=== PATIENT | female | born 1995 | race Caucasian/White ===

== ENCOUNTER 2019-07-24 12:21 | Emergency (ER) | payer SELFPAY ==
--- OUTSIDE RECORDS SUMMARY | 2019-07-24 12:23 | XMS REPORT ---
:1995 [facility] Address [address] [place] [address] Dr. Monte [address] [place] [id number] Care Team Providers Name Role Phone Unavailable Unavailable Unavailable Problems This patient has no known problems. Allergies, Adverse Reactions, Alerts This patient has no known allergies or adverse reactions. Medications This patient has no known medications.
[2019-07-24] MEDS ORDERED: KETOROLAC 30 MG/ML INJ ONE (12:41)
[2019-07-24] MEDS ORDERED: TETANUS & DIPHTHERIA TOX,ADULT 0.5 ML VIAL ONE (12:42)
--- NOTE | 2019-07-24 13:59 | RAD REPORT ---
EXAM DESCRIPTION: RAD - Scapula Left - 07/24/2019 1:11 pm CLINICAL HISTORY: Left shoulder pain status post injury FINDINGS: No fracture or dislocation is seen.
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
[2019-07-24 14:23] VITALS: BP 132/77; TEMP 97.4; O2SAT 100
== END 2019-07-24 14:16 | disposition home or self-care (01) ==
LOC: ER 12:21
DX: M25.512 Pain in left shoulder (principal); S80.819A Abrasion, unspecified lower leg, initial encounter; S80.10XA Contusion of unspecified lower leg, initial encounter; V43.52XA Car driver injured in collision with other type car in traffic accident, initial encounter; Y93.89 Activity, other specified; Y92.410 Unspecified street and highway as the place of occurrence of the external cause
CPT/HCPCS: 73010; 90471; 90714; 96372; 99283

== ENCOUNTER 2022-03-31 01:14 | Emergency (ER) | payer SELFPAY ==
--- OUTSIDE RECORDS SUMMARY | 2022-03-31 01:17 | XMS REPORT | Continuity of Care Document ---
:1995 Author Organization [facility] t Address [address] [place] [address] Care Team Providers Name Role Phone PCP, DOES NOT HAVE A Primary Care Physician Unavailable Kirk FORTUNE Attending Clinician Unavailable Kevyn COSBY Attending Clinician Tung Fortune DO Attending Clinician Doctor Unassigned, Name Attending Clinician Unavailable Raju_P Attending Clinician Unavailable Farrukhu_P Admitting Clinician Unavailable Payers Payer Name Policy Type Policy Number Effective Date Expiration Date [facility] [place] [id number] 2017 00:00:00 Advance Directives Directive Decision Effective Termination Comments Source Date Date Healthcare Agents on N/A NPI: 1831 FileNameRelationshipHealthcare [id number] Agent RelationshipCommunicationAdrian ServinSpouseHealth Care [phone] (Home)[facility]iana FinkOk[facility] [phone] (Mobile) Problems Condition Condition Condition Status Onset Resolution Last Treating Co mments Source Name Details Category Date Date Treatment Clinician Date Contracept Contracept Disease Active N PI:183 ama ama 8-29 [id number] management management 00:00: 00 Obesity Obesity Disease Active NPI:183 (BMI (BMI 8-29 7330125 30-39.9) 30-39.9) 00:00: 00 Rubella Rubella Disease Active 2016-11 NPI:183 non-immune non-immune 12-08 59958 status, status, 00:00: antepartum antepartum 00 H/O: H/O: Disease Active 2016-11 Overview: NPI:18 3 hypothyroi hypothyroi 1-14 She 13 18270 dism dism 00:00: reports 00 dx of hypothyro idism around 2012. States she has trouble recalling accurate informati on. She took hypothyro id medicatio ns for almost 1 year; self d/c'd. Reports asx since then. TSH levels noted in EPIC in 2012 were both normal (3.71 and 3.74). Allergies, Adverse Reactions, Alerts Allergy Allergy Status Severity Reaction(s) Onset Inactive Treating Comm ents Source Name Type Date Date Clinician NO KNOWN Drug Active NPI:183 ALLERGIE Class [id number] S Social History Social Habit Start Date Stop Date Quantity Comments Source Exposure to Not sure NPI:[id number] 1 SARS-CoV-2 (event) Sex Assigned At NPI:[id number] Tobacco use and 2020-05-14 2020-05-14 Never used NPI:[id number] 16299 exposure 00:00:00 00:00:00 Alcohol intake 2020-05-14 2020-05-14 Current NPI:[id number] 00:00:00 00:00:00 non-drinker of alcohol (finding) Smoking Status Start Date Stop Date Source Never smoker Medications Ordered Filled Start Stop Current Ordering Indication Dosage Frequency Signature Comments Components Source Medication Medication Date Date Medication? Clinician (SIG) Name Name naproxen 2019-11 2020- No [id number] 500mg Take 1 NPI:183 500 mg 30 11-03 608613 [place] [id number] tablet 00:00: 05:59 mouth 2 00 :00 (two) times daily with meals for 10 days. simethicone 2017- Yes 160mg Take 2 NPI :183 80 mg 7-15 tablets by [id number] chewable 00:00: mouth tablet 00 after meals and at bedtime as needed for Gas. docusate Yes 240mg Take 1 NPI:18 3 calcium 240 7-15 capsule by 13 08908 mg capsule 00:00: mouth once 00 daily as needed for Constipati on. HYDROcodone 2017- Yes 1{tbl} Take 1 LOGISTICS ASSOCIATE I:183 -acetaminop 7-15 tablet by 131 8781 hen 5-325 00:00: mouth mg tablet 00 every 6 (six) hours as needed for Pain (scale 4-6) (If uncontroll ed by Ibuprofen) . ibuprofen 2018-0 Yes 600mg Take 1 NPI:1 83 600 mg 7-15 tablet by [id number] tablet 00:00: mouth 00 every 6 (six) hours as needed for Pain (scale 1-3) or Pain (scale 4-6). 2018-0 Yes 1{tbl} Take 1 NPI:1 83 vitamin 7-15 tablet by [id number] w/FA tablet 00:00: mouth 00 daily. docusate 2018-0 Yes 240mg Take 1 NPI:18 3 calcium 240 7-15 capsule by 13 28138 mg capsule 00:00: mouth once 00 daily as needed for Constipati on. ferrous 2018-0 Yes 325mg Take 1 NPI:183 sulfate 325 7-15 tablet by 131 8781 mg (65 mg 00:00: mouth 2 iron) 00 (two) tablet times daily. ibuprofen 2018-0 Yes 600mg Take 1 NPI:1 83 600 mg 7-15 tablet by [id number] tablet 00:00: mouth 00 every 6 (six) hours as needed for Pain (scale 1-3) or Pain (scale 4-6) (Pain). Take with food or milk. simethicone 2018-0 Yes 160mg Take 2 NPI :183 80 mg 7-15 tablets by [id number] chewable 00:00: mouth tablet 00 after meals and at bedtime as needed for Gas. docusate 2018-0 Yes 240mg Take 1 NPI:18 3 calcium 240 7-15 capsule by 13 31144 mg capsule 00:00: mouth once 00 daily as needed for Constipati on. HYDROcodone 2018-0 Yes 1{tbl} Take 1 [employer] ASSOCIATE I:183 -acetaminop 7-15 tablet by 131 8781 hen 5-325 00:00: mouth mg tablet 00 every 6 (six) hours as needed for Pain (scale 4-6) (If uncontroll ed by Ibuprofen) . ibuprofen 2018-0 Yes 600mg Take 1 NPI:1 83 600 mg 7-15 tablet by [id number] tablet 00:00: mouth 00 every 6 (six) hours as needed for Pain (scale 1-3) or Pain (scale 4-6). 2018-0 Yes 1{tbl} Take 1 NPI:1 83 vitamin 7-15 tablet by [id number] w/FA tablet 00:00: mouth 00 daily. docusate 2018-0 Yes 240mg Take 1 NPI:18 3 calcium 240 7-15 capsule by 13 73878 mg capsule 00:00: mouth once 00 daily as needed for Constipati on. ferrous 2018-0 Yes 325mg Take 1 NPI:183 sulfate 325 7-15 tablet by 131 8781 mg (65 mg 00:00: mouth 2 iron) 00 (two) tablet times daily. ibuprofen 2018-0 Yes 600mg Take 1 NPI:1 83 600 mg 7-15 tablet by [id number] tablet 00:00: mouth 00 every 6 (six) hours as needed for Pain (scale 1-3) or Pain (scale 4-6) (Pain). Take with food or milk. simethicone 2018-0 Yes 160mg Take 2 NPI :183 80 mg 7-15 tablets by [id number] chewable 00:00: mouth tablet 00 after meals and at bedtime as needed for Gas. docusate 2018-0 Yes 240mg Take 1 NPI:18 3 calcium 240 7-15 capsule by 13 85131 mg capsule 00:00: mouth once 00 daily as needed for Constipati on. HYDROcodone 2018-0 Yes 1{tbl} Take 1 LOGISTICS ASSOCIATE I:183 -acetaminop 7-15 tablet by 131 8781 hen 5-325 00:00: mouth mg tablet 00 every 6 (six) hours as needed for Pain (scale 4-6) (If uncontroll ed by Ibuprofen) . ibuprofen 2018-0 Yes 600mg Take 1 NPI:1 83 600 mg 7-15 tablet by [id number] tablet 00:00: mouth 00 every 6 (six) hours as needed for Pain (scale 1-3) or Pain (scale 4-6). 2018-0 Yes 1{tbl} Take 1 NPI:1 83 vitamin 7-15 tablet by [id number] w/FA tablet 00:00: mouth 00 daily. docusate 2018-0 Yes 240mg Take 1 NPI:18 3 calcium 240 7-15 capsule by 13 35452 mg capsule 00:00: mouth once 00 daily as needed for Constipati on. ferrous 2018-0 Yes 325mg Take 1 NPI:183 sulfate 325 7-15 tablet by 131 8781 mg (65 mg 00:00: mouth 2 iron) 00 (two) tablet times daily. ibuprofen 2018-0 Yes 600mg Take 1 NPI:1 83 600 mg 7-15 tablet by [id number] tablet 00:00: mouth 00 every 6 (six) hours as needed for Pain (scale 1-3) or Pain (scale 4-6) (Pain). Take with food or milk. Immunizations Ordered Immunization Filled Immunization Date Status Commen ts Source Name Name MMR 2018-06-07 Completed NPI:[id number] 00:00:00 1 MMR 2018-06-07 Completed NPI:[id number] 00:00:00 1 MMR 2018-06-07 Completed NPI:[id number] 00:00:00 1 HPV9 2018-06-06 Completed NPI:[id number] 00:00:00 1 HPV9 2018-06-06 Completed NPI:[id number] 00:00:00 1 HPV9 2018-06-06 Completed NPI:[id number] 00:00:00 1 TDAP 2018-03-26 Completed NPI:[id number] 00:00:00 1 TDAP 2018-03-26 Completed NPI:[id number] 00:00:00 1 TDAP 2018-03-26 Completed NPI:[id number] 00:00:00 1 TDAP 2013-09-13 Completed NPI:[id number] 00:00:00 1 TDAP 2013-09-13 Completed NPI:[id number] 00:00:00 1 TDAP 2013-09-13 Completed NPI:[id number] 00:00:00 1 Influenza Virus 2013-08-23 Completed NPI:[id number] Vaccine (3+ yrs) 00:00:00 1 Influenza Virus 2013-08-23 Completed NPI:[id number] 1878 Vaccine (3+ yrs) 00:00:00 1 Influenza Virus 2013-08-23 Completed NPI:[id number] 1878 Vaccine (3+ yrs) 00:00:00 1 DTAP 2007-02-16 Completed NPI:[id number] 00:00:00 1 HPV 2007-02-16 Completed NPI:[id number] 00:00:00 1 Meningococcal Vaccine 2007-02-16 Completed NPI :[id number] 00:00:00 1 DTAP 2007-02-16 Completed NPI:[id number] 00:00:00 1 HPV 2007-02-16 Completed NPI:[id number] 00:00:00 1 Meningococcal Vaccine 2007-02-16 Completed NPI :[id number] 00:00:00 1 DTAP 2007-02-16 Completed NPI:[id number] 00:00:00 1 HPV 2007-02-16 Completed NPI:[id number] 00:00:00 1 Meningococcal Vaccine 2007-02-16 Completed NPI :[id number] 00:00:00 1 HEPATITIS A 2006-09-01 Completed NPI:[id number] 00:00:00 1 HEPATITIS A 2006-09-01 Completed NPI:[id number] 00:00:00 1 HEPATITIS A 2006-09-01 Completed NPI:[id number] 00:00:00 1 HEPATITIS A 2006-02-28 Completed NPI:[id number] 00:00:00 1 HEPATITIS A 2006-02-28 Completed NPI:[id number] 00:00:00 1 HEPATITIS A 2006-02-28 Completed NPI:[id number] 00:00:00 1 Vital Signs Vital Name Observation Time Observation Value Comments Source Systolic blood pressure 2020-10-23 14:19:00 121 mm[Hg] Diastolic blood 2020-10-23 14:19:00 75 mm[Hg] NPI:1 [id number] pressure Heart rate 2020-10-23 14:19:00 77 /min NPI:1831 [id number] Body temperature 2020-10-23 14:19:00 37.17 Rowan Respiratory rate 2020-10-23 14:19:00 16 /min Body height 2020-10-23 14:19:00 154.9 cm NPI:1831 [id number] Body weight 2020-10-23 14:19:00 87.998 kg NPI:1831 [id number] BMI 2020-10-23 14:19:00 36.66 kg/m2 NPI:1831 [id number] Oxygen saturation in 2020-10-23 14:19:00 97 /min Arterial blood by Pulse oximetry Body temperature 2020-05-14 14:31:00 37.06 Rowan Respiratory rate 2020-05-14 14:31:00 18 /min Body weight 2020-05-14 14:31:00 90.719 kg NPI:1831 [id number] BMI 2020-05-14 14:31:00 37.79 kg/m2 NPI:1831 [id number] Oxygen saturation in 2020-05-14 14:31:00 100 /min Arterial blood by Pulse oximetry Systolic blood pressure 2020-05-14 14:31:00 130 mm[Hg] Diastolic blood 2020-05-14 14:31:00 85 mm[Hg] NPI:1 [id number] pressure Heart rate 2020-05-14 14:31:00 92 /min NPI:1831 [id number] Procedures Procedure Date / Time Performed Performing Clinician Raoul e XR WRIST 3+ VW RIGHT 2020-10-23 14:48:47 Natanael Bagley NPI:[id number] NOTICE OF PRIVACY 2020-10-23 14:13:40 Doctor Unassigned, No PRACTICES Name CONSENT/REFUSAL FOR 2020-10-23 14:13:22 Doctor Unassigned, No LOGISTICS ASSOCIATE I:[id number] DIAGNOSIS AND TREATMENT Name NOTICE OF PRIVACY 2020-05-14 14:57:33 Doctor Unassigned, No PRACTICES Name RAPID STREP SCREEN FOR 2020-05-14 14:49:00 Keturah Fortune LOGISTICS ASSOCIATE I:[id number] GROUP A COVID-19 (ID NOW RAPID 2020-05-14 14:49:00 Keturah Fortune LOGISTICS ASSOCIATE I:[id number] TESTING) CONSENT/REFUSAL FOR 2020-05-14 14:22:51 Doctor Unassigned, No LOGISTICS ASSOCIATE I:[id number] DIAGNOSIS AND TREATMENT Name Encounters Start End Encounter Admission Attending Care Care Encounter Source Date/Time Date/Time Type Type Clinicians Facility Department ID 2021-09-[address] [facility] [id number] NPI:183 08:05:11 [id number] 1580-10-[address] [facility] [id number] NPI:183 02:00:45 [id number] [id number] 2021-10-[address] [facility] [id number] NPI:183 14:15:00 14:15:00 DIPESH [id number] 2020-10-23 2020-10-23 Emergency [facility] [id number] NPI:183 08:22:00 09:18:00 Natanael Marie [id number] [place] 4.2.7.2.686 [place] [id number] 2020-05-14 2020-05-14 Emergency [facility] [id number] NPI:183 09:33:00 11:03:00 Keturah Marie [id number] [place] 4.2.7.2.686 [place] [id number] 2020-05-14 2020-05-14 Orders Doctor PAYAM [id number] NPI:183 00:00:00 00:00:00 Only Unassigned, JUAN [id number] [place] [facility] [id number] 2020-03-22 2020-03-22 Outpatient Raju_P [facility] [id number] [place] 10:50:00 10:50:00 0429 [facility] Results Test Description Test Time Test Comments Results Result Comments Source RAPID STREP SCREEN FOR GROUP A 2020-05-14 15:41:00 Test Item Value Reference Range Interpretation Comme nts Streptococcus pyogenes (group A) antigen (test code = 30714- 2) Negative Negative Lab Interpretation (test code = 69673-1) Normal NPI:[id number] (ID NOW RAPID TESTING)2020-05-14 15:38:00 Test Item Value Reference Range Interpretation Comments SARS-CoV-2 Rapid ID NOW Not Detected Not Detected (test code = 49455-4) PHYLICIA (test code = PHYLICIA) ID NOW COVID-19 Assay is an isothermal nucleic acid amplification test intended for the qualitative detection of nucleic acid from SARS-CoV-2 viral RNA in nasopharyngeal (LOGISTICS ASSOCIATE) specimens. It is used under Emergency Use Authorization (EUA) by FDA. The limit of detection (LOD) of the assay is 125 Genome Equivalents/mL. A positive result is indicative of the presence of SARS-CoV-2 RNA. ?Clinical correlation with patient history and other diagnostic information is necessary to determine patient infection status. A negative (Not Detected) result does not preclude SARS-CoV-2 infection. In patients with clinical symptoms and other tests that are consistent with SARS-CoV-2 infection, negative results should be treated as presumptive negative and a new specimen should be tested with alternative PCR molecular test. Invalid: Please collect a new specimen for repeat patient testing if clinically indicated. Lab Interpretation Normal (test code = 20922-4)
[2022-03-31 02:31] LABS: SARS-COV-2 RT PCR NEGATIVE (NEGATIVE)
--- NOTE | 2022-03-31 02:46 | ER ---
Nurse's Notes [facility] Name: Marta Meza Age: 27 yrs Sex: Female : 1995 Arrival Date: 03/31/2022 Time: 01:18 Bed 12 Private MD: Diagnosis: Acute pharyngitis, unspecified Presentation: 03/31 01:32 Chief complaint: Patient states: she has a sore throat, ear pain and pain with bb swallowing which started yesterday. Coronavirus screen: At this time, the client does not indicate any symptoms associated with coronavirus-19. Coronavirus screen: Client presents with at least one sign or symptom that may indicate coronavirus-19. Standard/surgical mask placed on the client. Ebola Screen: No symptoms or risks identified at this time. Initial Sepsis Screen: Does the patient meet any 2 criteria? No. Patient's initial sepsis screen is negative. Does the patient have a suspected source of infection? No. Patient's initial sepsis screen is negative. Risk Assessment: Do you want to hurt yourself or someone else? Patient reports no desire to harm self or others. Onset of symptoms was March 30, 2022. 01:32 Method Of Arrival: Ambulatory bb 01:32 Acuity: BEE 4 bb Triage Assessment: 02:59 General: Behavior is calm. 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 - Social history:: Smoking status: Patient denies any tobacco usage or history of. Screenin:38 Abuse screen: Denies threats or abuse. Nutritional screening: No deficits noted. bb Tuberculosis screening: No symptoms or risk factors identified. Fall Risk None identified. Assessment: 01:38 General: Appears in no apparent distress. uncomfortable. Pain: Complains of pain in bb throat Pain currently is 5 out of 10 on a pain scale. Neuro: Level of Consciousness is awake, alert, obeys commands, Oriented to person, place, time, situation. Cardiovascular: Capillary refill < 3 seconds Patient's skin is warm and dry. Respiratory: Airway is patent Respiratory effort is even, unlabored, Breath sounds are clear bilaterally. GI: No signs and/or symptoms were reported involving the gastrointestinal system. EENT: Throat has enlarged tonsils Reports pain when swallowing. Derm: Skin is pink, warm \T\ dry. 02:58 Reassessment: Patient is alert, oriented x 3, equal unlabored respirations, skin bb warm/dry/pink. pt verbalized understanding of and agrees to plan of care discharge instructions given pt ambulated with steady gait to exit. Vital Signs: 01:32 BP 118 / 73; Pulse 80; Resp 16 S; Temp 97.4(TE); Pulse Ox 100% on R/A; Weight 86.18 kg bb (R); Height 5 ft. 1 in. (154.94 cm) (R); Pain 5/10; 01:32 Body Mass Index 35.90 (86.18 kg, 154.94 cm) bb ED Course: 01:18 Patient arrived in ED. kz 01:36 Triage completed. bb 01:36 Arm band placed on Patient placed in an exam room. Labs ordered per protocol. bb 01:38 Patient has correct armband on for positive identification. Call light in reach. bb 01:49 Norbert Eason MD is Attending Physician. [facility] 02:37 Karime Miller RN is Primary Nurse. bb 02:59 No provider procedures requiring assistance completed. Patient did not have IV access bb during this emergency room visit. Administered Medications: No medications were administered Outcome: 02:45 Discharge ordered by . [facility] 02:59 Discharged to home ambulatory. bb 02:59 Condition: stable 02:59 Discharge instructions given to patient, Instructed on discharge instructions, follow up and referral plans. medication usage, Demonstrated understanding of instructions, follow-up care, medications, Prescriptions given X 1. 02:59 Patient left the ED. bb Signatures: Karime Miller RN RN Norbert Pemberton MD MD [facility] Lien Iyer
--- NOTE | 2022-03-31 02:46 | EDPHYS ---
Physician Documentation [facility] Name: Marta Meza Age: 27 yrs Sex: Female : 1995 Arrival Date: 03/31/2022 Time: 01:18 Bed 12 Private MD: ED Physician Norbert Eason HPI: 03/31 01:50 This 27 yrs old Female presents to ER via Ambulatory with complaints of Sore Throat. mh7 01:50 The patient presents with sore throat. The patient describes throat pain as constant. mh7 Onset: The symptoms/episode began/occurred yesterday. Severity of symptoms: At their worst the symptoms were moderate, yesterday, in the emergency department the symptoms have improved, moderately. Modifying factors: The symptoms are alleviated by nothing, the symptoms are aggravated by swallowing, Patient's oral intake status: good Denies contact with similarly ill indivduals. Associated signs and symptoms: Pertinent positives: earache, Pertinent negatives chest pain, chills, cough, diarrhea, dysphagia, fever, flu-like symptoms, headache, nausea, rhinorrhea, shortness of breath, vomiting. 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 - Social history:: Smoking status: Patient denies any tobacco usage or history of. ROS: 01:50 Constitutional: Negative for fever, chills, and weight loss, Eyes: Negative for injury, mh7 pain, redness, and discharge, Neck: Negative for injury, pain, and swelling, Cardiovascular: Negative for chest pain, palpitations, and edema, Respiratory: Negative for shortness of breath, cough, wheezing, and pleuritic chest pain, Abdomen/GI: Negative for abdominal pain, nausea, vomiting, diarrhea, and constipation, Back: Negative for injury and pain, : Negative for injury, bleeding, discharge, and swelling, MS/Extremity: Negative for injury and deformity, Skin: Negative for injury, rash, and discoloration, Neuro: Negative for headache, weakness, numbness, tingling, and seizure, Psych: Negative for depression, anxiety, suicide ideation, homicidal ideation, and hallucinations, Allergy/Immunology: Negative for hives, rash, and allergies, Endocrine: Negative for neck swelling, polydipsia, polyuria, polyphagia, and marked weight changes, Hematologic/Lymphatic: Negative for swollen nodes, abnormal bleeding, and unusual bruising. Exam: 01:50 Constitutional: This is a well developed, well nourished patient who is awake, alert, mh7 and in no acute distress. Head/Face: Normocephalic, atraumatic. Eyes: Pupils equal round and reactive to light, extra-ocular motions intact. Lids and lashes normal. Conjunctiva and sclera are non-icteric and not injected. Cornea within normal limits. Periorbital areas with no swelling, redness, or edema. Neck: Trachea midline, no thyromegaly or masses palpated, and no cervical lymphadenopathy. Supple, full range of motion without nuchal rigidity, or vertebral point tenderness. No Meningismus. Chest/axilla: Normal chest wall appearance and motion. Nontender with no deformity. No lesions are appreciated. Cardiovascular: Regular rate and rhythm with a normal S1 and S2. No gallops, murmurs, or rubs. Normal PMI, no JVD. No pulse deficits. Respiratory: Lungs have equal breath sounds bilaterally, clear to auscultation and percussion. No rales, rhonchi or wheezes noted. No increased work of breathing, no retractions or nasal flaring. Abdomen/GI: Soft, non-tender, with normal bowel sounds. No distension or tympany. No guarding or rebound. No evidence of tenderness throughout. Back: No spinal tenderness. No costovertebral tenderness. Full range of motion. Skin: Warm, dry with normal turgor. Normal color with no rashes, no lesions, and no evidence of cellulitis. MS/ Extremity: Pulses equal, no cyanosis. Neurovascular intact. Full, normal range of motion. Neuro: Awake and alert, GCS 15, oriented to person, place, time, and situation. Cranial nerves II-XII grossly intact. Motor strength 5/5 in all extremities. Sensory grossly intact. Cerebellar exam normal. Normal gait. Psych: Awake, alert, with orientation to person, place and time. Behavior, mood, and affect are within normal limits. 01:50 ENT: External ear(s): are unremarkable, Ear canal(s): are normal, clear, TM's: are normal, Nose: is normal, Mouth: is normal, Posterior pharynx: Airway: normal, Tonsils: bilaterally enlarged, with erythema, with exudate, Uvula: normal, swelling, that is mild, erythema, that is moderate, exudate, that is moderate, peritonsillar mass, is not appreciated, pooling of secretions, is not appreciated, Dental exam: normal, Voice: is normal. Vital Signs: 01:32 BP 118 / 73; Pulse 80; Resp 16 S; Temp 97.4(TE); Pulse Ox 100% on R/A; Weight 86.18 kg bb (R); Height 5 ft. 1 in. (154.94 cm) (R); Pain 5/10; 01:32 Body Mass Index 35.90 (86.18 kg, 154.94 cm) MDM: 02:43 Differential diagnosis: cocksackie virus, group A strep tonsillitis, influenza, mh7 pharyngitis, tonsillitis, viral syndrome. Data reviewed: vital signs, nurses notes, lab test result(s), Flu: negative COVID negative, Strep negative. Data interpreted: Pulse oximetry: on room air is 100 %. Interpretation: normal. Counseling: I had a detailed discussion with the patient and/or guardian regarding: the historical points, exam findings, and any diagnostic results supporting the discharge/admit diagnosis, lab results, the need for outpatient follow up, to return to the emergency department if symptoms worsen or persist or if there are any questions or concerns that arise at home. Response to treatment: the patient's symptoms have markedly improved after treatment. Refusal of service: The patient/guardian displays adequate decision making capability and despite a detailed discussion of alternatives, benefits, risks, and consequences refuses: Medications. 02:45 Patient medically screened. [facility] 03/31 01:38 Order name: Strep; Complete Time: 02:38 03/31 01:38 Order name: COVID-19/FLU A+B (Document "Date of Onset" if Symptomatic); Complete Time: bb 02:38 03/31 02:13 Order name: Throat Culture EDMS Administered Medications: No medications were administered Disposition Summary: 03/31/22 02:45 Discharge Ordered Location: Home [facility] Problem: new [facility] Symptoms: have improved [facility] Condition: Stable [facility] Diagnosis - Acute pharyngitis, unspecified [facility] Followup: [facility] - With: Private Physician - When: 1 - 2 days - Reason: Worsening of condition, Recheck today's complaints, Continuance of care, Re-evaluation by your physician Discharge Instructions: - Discharge Summary Sheet [facility] - Pharyngitis, [id number] [facility] Forms: - Medication Reconciliation Form [facility] - Thank You Letter [facility] - Antibiotic Education [facility] - Prescription Opioid Use [facility] Prescriptions: - Amoxicillin 875 mg Oral Tablet - take 1 tablet by ORAL route every 12 hours for 10 days; 20 tablet; Refills: 0, 7 Product Selection Permitted Signatures: Dispatcher [employer] Karime Doll RN RN bb Holmes, Maurice, MD MD [facility]
[2022-03-31 05:49] VITALS: BP 118/73; TEMP 97.4; O2SAT 100
== END 2022-03-31 02:59 | disposition home or self-care (01) ==
LOC: ER 01:14
DX: J02.9 Acute pharyngitis, unspecified (principal); Z20.822 Contact with and (suspected) exposure to COVID-19
CPT/HCPCS: 0240U; 87070; 87081; 99283

== ENCOUNTER 2022-05-26 19:23 | Emergency (ER) | payer SELFPAY ==
[2022-05-26] MEDS ORDERED: GUAIFENESIN/CODEINE 5ML UCUP ONE (19:57)
--- NOTE | 2022-05-26 20:04 | RAD REPORT ---
EXAM DESCRIPTION: CT - Head Brain Wo Cont - 05/26/2022 7:57 pm CLINICAL HISTORY: Headache COMPARISON: No comparisonsNo comparisons TECHNIQUE: Axial 5 mm thick images of the head were obtained without IV contrast. All CT scans are performed using dose optimization technique as appropriate and may include automated exposure control or mA/KV adjustment according to patient size. FINDINGS: No intracranial hemorrhage, mass, edema or shift of mid-line structures. No acute infarcti on changes seen. No abnormal extra-axial fluid collections. Ventricles are normal. Mastoid air cells are clear. There significant mucosal thickening throughout the paranasal sinuses wi th air-fluid levels in each maxillary sinus. No sclerotic or expansile bony change. No acute bony findings. IMPRESSION: Sinusitis involving the maxillary, sphenoid and ethmoid air cells. No intracranial abnormality.
--- NOTE | 2022-05-26 20:49 | EDPHYS ---
Physician Documentation [facility] Name: Marta Al Age: 27 yrs Sex: Female : 1995 Arrival Date: 05/26/2022 Time: 19:27 Bed 19 Private MD: ED Physician Berry Castellanos HPI: 05/26 19:46 This 27 yrs old Female presents to ER via Ambulatory with complaints of Headache, pm1 Blurred Vision. 19:46 The patient complains of pain to the Right side of forehead and right eye. The patient pm1 describes the headache as aching. Onset: The symptoms/episode began/occurred 2 to 3 weeks. Associated signs and symptoms: Pertinent positives: Right eye blurry vision, Pertinent negatives: dizziness, fever, nausea, vomiting, weakness. Severity of symptoms: in the emergency department the pain has resolved. Headache History: Denies prior headaches. The symptoms are alleviated by nothing. the symptoms are aggravated by nothing. The patient has not experienced similar symptoms in the past. The patient has not recently seen a physician. 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 Flu vaccine is not up to date. - Social history:: Smoking status: Patient denies any tobacco usage or history of. ROS: 19:46 Constitutional: Negative for fever, chills, and weight loss, Cardiovascular: Negative pm1 for chest pain, palpitations, and edema, Respiratory: Negative for shortness of breath, cough, wheezing, and pleuritic chest pain, MS/Extremity: Negative for injury and deformity, Skin: Negative for injury, rash, and discoloration. 19:46 Neuro: Positive for headache, Negative for numbness, tingling, weakness. 19:46 All other systems are negative. Exam: 19:46 Constitutional: This is a well developed, well nourished patient who is awake, alert, pm1 and in no acute distress. Head/Face: Normocephalic, atraumatic. 19:46 Skin: Warm, dry with normal turgor. Normal color with no rashes, no lesions, and no evidence of cellulitis. MS/ Extremity: Pulses equal, no cyanosis. Neurovascular intact. Full, normal range of motion. 19:46 Head/face: Noted is no obvious of injury or deformity except Sinus tenderness, that is moderate, is located over the right frontal sinus. 19:46 Cardiovascular: Exam negative for acute changes, Rate: normal, Rhythm: regular, Pulses: no pulse deficits are appreciated. 19:46 Respiratory: Exam negative for acute changes, respiratory distress, shortness of breath, Breath sounds: are clear throughout. 19:46 Neuro: Exam negative for acute changes, Orientation: is normal, Mentation: is normal, Cranial nerves: CN II- XII are normal as tested, Cerebellar function: normal finger to nose testing, Motor: moves all fours, Sensation: no obvious gross deficits. Vital Signs: 19:37 BP 123 / 82; Pulse 86; Resp 16; Temp 98.2(O); Pulse Ox 99% on R/A; Weight 86.18 kg; vc1 Height 5 ft. 1 in. (154.94 cm); Pain 4/10; 20:56 BP 133 / 85; Pulse 72; Resp 15; Pulse Ox 100% ; vc1 19:37 Body Mass Index 35.90 (86.18 kg, 154.94 cm) vc1 MDM: 19:33 Patient medically screened. [facility] 20:47 Data reviewed: vital signs. Data interpreted: Pulse oximetry: on room air is 99 %. pm1 Interpretation: normal. Counseling: I had a detailed discussion with the patient and/or guardian regarding: the historical points, exam findings, and any diagnostic results supporting the discharge/admit diagnosis, radiology results, the need for outpatient follow up, to return to the emergency department if symptoms worsen or persist or if there are any questions or concerns that arise at home. 20:47 ED course: Patient with sinus symptoms and headache for the past 2-3 weeks and pm1 sinusitis present on CT, therefore the patient qualifies for antibiotic therapy for her sinusitis. 05/26 19:45 Order name: CT Head Brain wo Cont; Complete Time: 20:24 pm1 Administered Medications: 19:52 Drug: guaiFENesin AC (codeine-guaifenesin) Liquid (10 mg-100 mg/5 mL) 5 ml Route: PO; vc1 20:57 Follow up: Response: No adverse reaction; Marked relief of symptoms; Pain is decreased vc1 Disposition Summary: 05/26/22 20:48 Discharge Ordered Location: Home pm1 Problem: new pm1 Symptoms: have improved pm1 Condition: Stable pm1 Diagnosis - Other acute sinusitis pm1 Followup: pm1 - With: Emergency Department - When: As needed - Reason: Worsening of condition Followup: pm1 - With: Private Physician - When: 2 - 3 days - Reason: Recheck today's complaints, Continuance of care, Re-evaluation by your physician Discharge Instructions: - Discharge Summary Sheet pm1 - Sinusitis, Adult pm1 Forms: - Medication Reconciliation Form pm1 - Work release form pm1 - Thank You Letter pm1 - Antibiotic Education pm1 - Prescription Opioid Use pm1 Prescriptions: - Augmentin 875-125 mg Oral Tablet - take 1 tablet by ORAL route every 12 hours for 10 days; 20 tablet; Refills: 0, pm1 Product Selection Permitted - Diclofenac Sodium 75 mg Oral tablet,delayed release (DR/EC) - take 1 tablet by ORAL route 2 times per day As needed; 30 tablet; Refills: 0, pm1 Product Selection Permitted Signatures: Dispatcher [employer] EDBerry Mas MD MD cha Marinas, Patrick, NP WIGS SALESPERSON pm1 Crystal Melchor, RN RN vc1
--- NOTE | 2022-05-26 20:49 | ER ---
Nurse's Notes [facility] Name: Marta Al Age: 27 yrs Sex: Female : 1995 Arrival Date: 05/26/2022 Time: 19:27 Bed 19 Private MD: Diagnosis: Other acute sinusitis Presentation: 05/26 19:37 Chief complaint: Patient states: "I have had a headache for the past 2-3 weeks, today vc1 it's worse and I am having really bad pain behind my right eye.". Coronavirus screen: Vaccine status: Patient reports being unvaccinated. headache, Client presents with at least one sign or symptom that may indicate coronavirus-19. Standard/surgical mask placed on the client. Provider contacted for isolation considerations. Ebola Screen: No symptoms or risks identified at this time. Initial Sepsis Screen: Does the patient meet any 2 criteria? No. Patient's initial sepsis screen is negative. Does the patient have a suspected source of infection? No. Patient's initial sepsis screen is negative. Risk Assessment: Do you want to hurt yourself or someone else? Patient reports no desire to harm self or others. Onset of symptoms is unknown. 19:37 Method Of Arrival: Ambulatory vc1 19:37 Acuity: BEE 3 vc1 Triage Assessment: 19:39 Headache History: Denies prior headaches. General: Appears in no apparent distress. vc1 uncomfortable, Behavior is calm, cooperative, appropriate for age. Pain: Complains of pain in right eye Pain does not radiate. Pain currently is 4 out of 10 on a pain scale. at worst was 8 out of 10 on a pain scale. Quality of pain is described as pressure, throbbing, Pain began suddenly, Also complains of photophobia, inability to work. EENT: Reports blurred vision in right eye photophobia. Neuro: Level of Consciousness is awake, alert, obeys commands, Oriented to person, place, time, situation, Appropriate for age. Cardiovascular: Capillary refill < 3 seconds Patient's skin is warm and dry. Respiratory: Airway is patent Respiratory effort is even, unlabored, Respiratory pattern is regular, symmetrical. GI: No deficits noted. : No deficits noted. Derm: No deficits noted. Musculoskeletal: No signs and/or symptoms reported regarding the musculoskeletal system. 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 Flu vaccine is not up to date. - Social history:: Smoking status: Patient denies any tobacco usage or history of. Screenin:42 Abuse screen: Denies threats or abuse. Nutritional screening: No deficits noted. vc1 Tuberculosis screening: No symptoms or risk factors identified. Fall Risk None identified. Assessment: 20:00 Reassessment: "See triage assessment". vc1 20:56 Reassessment: Patient and/or family updated on plan of care and expected duration. Pain vc1 level reassessed. Patient is alert, oriented x 3, equal unlabored respirations, skin warm/dry/pink. Patient states symptoms have improved. Pain: Complains of pain in right eye Pain does not radiate. Vital Signs: 19:37 BP 123 / 82; Pulse 86; Resp 16; Temp 98.2(O); Pulse Ox 99% on R/A; Weight 86.18 kg; vc1 Height 5 ft. 1 in. (154.94 cm); Pain 4/10; 20:56 BP 133 / 85; Pulse 72; Resp 15; Pulse Ox 100% ; vc1 19:37 Body Mass Index 35.90 (86.18 kg, 154.94 cm) vc1 ED Course: 19:27 Patient arrived in ED. ja2 19:29 Ady Rahman NP is PHCP. pm1 19:29 Berry Castellanos MD is Attending Physician. pm1 19:39 Triage completed. vc1 19:42 Arm band placed on right wrist. vc1 19:42 Bed in low position. Call light in reach. Pulse ox on. NIBP on. vc1 19:51 Crystal Melchor, SEAN is Primary Nurse. vc1 19:59 CT Head Brain wo Cont In Process Unspecified. EDMS 21:12 No provider procedures requiring assistance completed. Patient did not have IV access vc1 during this emergency room visit. Administered Medications: 19:52 Drug: guaiFENesin AC (codeine-guaifenesin) Liquid (10 mg-100 mg/5 mL) 5 ml Route: PO; vc1 20:57 Follow up: Response: No adverse reaction; Marked relief of symptoms; Pain is decreased vc1 Medication: 21:12 VIS not applicable for this client. vc1 Outcome: 20:48 Discharge ordered by MD. pm1 21:12 Discharged to home ambulatory. vc1 21:12 Condition: good 21:12 Discharge instructions given to patient, Instructed on discharge instructions, follow up and referral plans. medication usage, Demonstrated understanding of instructions, follow-up care, medications, Prescriptions given X 2. 21:12 Patient left the ED. vc1 Signatures: Dispatcher [employer] EDMS Ady Rahman NP BEHAVIOR CLINICIAN pm1 Joyce Grossman Vanessa, RN RN vc1
[2022-05-26 21:21] VITALS: TEMP 98.2
[2022-05-26 21:23] VITALS: BP 133/85; O2SAT 100
== END 2022-05-26 21:12 | disposition home or self-care (01) ==
LOC: ER 19:23
DX: J01.80 Other acute sinusitis (principal); H53.8 Other visual disturbances; E03.9 Hypothyroidism, unspecified; R73.03 Prediabetes
CPT/HCPCS: 70450; 99284

== ENCOUNTER 2023-08-28 05:58 | Emergency (ER) | payer BC ==
--- OUTSIDE RECORDS SUMMARY | 2023-08-28 06:01 | XMS REPORT | Continuity of Care Document ---
:1995 Author Organization [facility] t Address [address] [facility] [address] [place] [address] Care Team Providers Name Role Phone Pcp, Patient Does Not Have A Primary Care Physician [id number] CHRISTOPHER GERMAN Attending Clinician Unavailable CHRISTOPHER GERMAN Attending Clinician Unavailable Doctor Unassigned, [place] Attending Clinician Unavailable LÓPEZ RODGERS Attending Clinician Unavailable López Rodgers MD Attending Clinician Natanael Bagley MD Attending Clinician Keturah Boudreaux DO Attending Clinician Raju_P Attending Clinician Unavailable Raju_P Admitting Clinician Unavailable Payers Payer Name Policy Type Policy Number Effective Date Expiration Date S [place]ure[place] [employer] [place] [id number] 2017 [place] 00:00:00 BCBS [facility] - [id number] 2022 OUT OF STATE 00:00:00 Problems Condition Condition Condition Status Onset Resolution Last Treating Co mments Source Name Details Category Date Date Treatment Clinician Date Contracept Contracept Disease Active U reynaldo alamoe ama 8-29 ity of management management [place] [facility] [place] Obesity Obesity Disease Active Univers (BMI (BMI 8-29 ity of 30-39.9) 30-39.9) 00:00: [place] 00 Medical Branch Rubella Rubella Disease Active 2016-11 Univers non-immune non-immune 1-15 it y of status, status, 00:00: [place] antepartum antepartum 00 Me dical Branch H/O: H/O: Disease Active 2016-11 Overview: [place] hypothyroi hypothyroi 1-14 Form[place] ity of dism dism 00:00: g of this [place] 00 note Medical might be Branch different from the original. She reports dx of hypothyro idism around 2012. States [...] Date Date Clinician NO KNOWN Drug Active [facility] ALLERGIE Class ity of S [facility] Social History Social Habit Start Date Stop Date Quantity Comments Source Exposure to 2023-01-21 2023-01-31 Not sure [facility] SARS-CoV-2 00:00:00 11:40:00 [place] [facility] (event) [place] Tobacco use and 2023-01-31 2023-01-31 Smokeless tobacco Un iversity of exposure 00:00:00 00:00:00 non-user [facility] Alcohol intake 2023-01-31 2023-01-31 0 /d [facility] 00:00:00 00:00:00 [facility] Sex Assigned At [birth year] Universit y of 00:00:00 00:00:00 [facility] Smoking Status Start Date Stop Date Source Never smoked tobacco [facility] Medications Ordered Filled Start Stop Current Ordering Indication Dosage Frequency Signature Comments Components Source Medication Medication Date Date Medication? Clinician (SIG) [facility] [id number] 1{each} Insert 1 Univers 0.12-0.015 3-10 Each into ity of mg/24 hr 00:00: vagina [place] vaginal 00 once every Medica l insert month. Branch Insert vaginally and leave in place for 3 consecutiv e weeks, then remove for 1 week. NUVARING Yes [id number] 1{each} Insert 1 Univers 0.12-0.015 3-10 Each into ity of mg/24 hr 00:00: vagina [place] vaginal 00 once every Medica l insert month. Branch Insert vaginally and leave in place for 3 consecutiv e weeks, then remove for 1 week. NUVARING Yes [id number] 1{each} Insert 1 Univers 0.12-0.015 3-10 Each into ity of mg/24 hr 00:00: vagina [place] vaginal 00 once every Medica l insert month. Branch Insert vaginally and leave in place for 3 consecutiv e weeks, then remove for 1 week. albuterol Yes INHALE 1 Univ ers 90 2-27 TO 2 PUFFS ity of mcg/actuati 00:00: BY M[place]TH [place] inhaler 00 EVERY 4 Medica l HOURS Branch NEEDED ondansetron Yes DISSOLVE 1 Univers 4 mg 2-27 TABLET ON ity of disintegrat 00:00: [place]UE [place] tablet 00 EVERY 8 Medica l HOURS Branch NEEDED FOR NAUSEA AND VOMITING naproxen 2019-11 2020- No [id number] 500mg Take 1 Univers 500 mg 1-30 12- [id number] tablet by ity o f tablet 00:00: 05:59 mouth 2 [place] 00 :00 (two) Medical times Branch daily with meals for 10 days. simethicone Yes 160mg Take 2 Uni vers 80 mg 7-15 tablets by ity of chewable 00:00: mouth [place] tablet 00 after Medical meals and Branch at bedtime as needed for Gas. docusate Yes 240mg Take 1 Univer s calcium 240 7-15 capsule by it y of mg capsule 00:00: mouth once [place] 00 daily as Medical needed for Branch Constipati on. HYDROcodone Yes 1{tbl} Take 1 Un kevin -acetaminop 7-15 tablet by ity of hen 5-325 00:00: mouth [place] mg tablet 00 every 6 Medical (six) Branch hours as needed for Pain (scale 4-6) (If uncontroll ed by Ibuprofen) . ibuprofen Yes 600mg Take 1 Unive rs 600 mg 7-15 tablet by ity of tablet 00:00: mouth [place] 00 every 6 Medical (six) Branch hours as needed for Pain (scale 1-3) or Pain (scale 4-6). Yes 1{tbl} Take 1 Unive rs vitamin 7-15 tablet by ity of w/FA tablet 00:00: mouth [place] 00 daily. Medical Branch docusate Yes 240mg Take 1 Univer s calcium 240 7-15 capsule by it y of mg capsule 00:00: mouth once [place] 00 daily as Medical needed for Branch Constipati on. ferrous Yes 325mg Take 1 Univers sulfate 325 7-15 tablet by ity of mg (65 mg 00:00: mouth 2 [place] iron) 00 (two) Medical tablet times Branch daily. ibuprofen Yes 600mg Take 1 Unive rs 600 mg 7-15 tablet by ity of tablet 00:00: mouth [place] 00 every 6 Medical (six) Branch hours as needed for Pain (scale 1-3) or Pain (scale 4-6) (Pain). Take with food or milk. simethicone Yes 160mg Take 2 Uni vers 80 mg 7-15 tablets by ity of chewable 00:00: mouth [place] tablet 00 after Medical meals and Branch at bedtime as needed for Gas. docusate Yes 240mg Take 1 Univer s calcium 240 7-15 capsule by it y of mg capsule 00:00: mouth once [place] 00 daily as Medical needed for Branch Constipati on. HYDROcodone Yes 1{tbl} Take 1 Un kevin -acetaminop 7-15 tablet by ity of hen 5-325 00:00: mouth [place] mg tablet 00 every 6 Medical (six) Branch hours as needed for Pain (scale 4-6) (If uncontroll ed by Ibuprofen) . ibuprofen Yes 600mg Take 1 Unive rs 600 mg 7-15 tablet by ity of tablet 00:00: mouth [place] 00 every 6 Medical (six) Branch hours as needed for Pain (scale 1-3) or Pain (scale 4-6). 2018-0 Yes 1{tbl} Take 1 Unive rs vitamin 7-15 tablet by ity of w/FA tablet 00:00: mouth [place] 00 daily. Medical Branch docusate Yes 240mg Take 1 Univer s calcium 240 7-15 capsule by it y of mg capsule 00:00: mouth once [place] 00 daily as Medical needed for Branch Constipati on. ferrous 2018-0 Yes 325mg Take 1 Univers sulfate 325 7-15 tablet by ity of mg (65 mg 00:00: mouth 2 [place] iron) 00 (two) Medical tablet times Branch daily. ibuprofen 2018-0 Yes 600mg Take 1 Unive rs 600 mg 7-15 tablet by ity of tablet 00:00: mouth [place] 00 every 6 Medical (six) Branch hours as needed for Pain (scale 1-3) or Pain (scale 4-6) (Pain). Take with food or milk. simethicone 2018-0 Yes 160mg Take 2 Uni vers 80 mg 7-15 tablets by ity of chewable 00:00: mouth [place] tablet 00 after Medical meals and Branch at bedtime as needed for Gas. docusate 2018-0 Yes 240mg Take 1 Univer s calcium 240 7-15 capsule by it y of mg capsule 00:00: mouth once [place] 00 daily as Medical needed for Branch Constipati on. HYDROcodone 2018-0 Yes 1{tbl} Take 1 Un kevin -acetaminop 7-15 tablet by ity of hen 5-325 00:00: mouth [place] mg tablet 00 every 6 Medical (six) Branch hours as needed for Pain (scale 4-6) (If uncontroll ed by Ibuprofen) . simethicone 2018-0 Yes 160mg Take 2 Uni vers 80 mg 7-15 tablets by ity of chewable 00:00: mouth [place] tablet 00 after Medical meals and Branch at bedtime as needed for Gas. ibuprofen 2018-0 Yes 600mg Take 1 Unive rs 600 mg 7-15 tablet by ity of tablet 00:00: mouth [place] 00 every 6 Medical (six) Branch hours as needed for Pain (scale 1-3) or Pain (scale 4-6). 2018-0 Yes 1{tbl} Take 1 Unive rs vitamin 7-15 tablet by ity of w/FA tablet 00:00: mouth [place] 00 daily. Medical Branch docusate 2018-0 Yes 240mg Take 1 Univer s calcium 240 7-15 capsule by it y of mg capsule 00:00: mouth once [place] 00 daily as Medical needed for Branch Constipati on. ferrous 2018-0 Yes 325mg Take 1 Univers sulfate 325 7-15 tablet by ity of mg (65 mg 00:00: mouth 2 [place] iron) 00 (two) Medical tablet times Branch daily. ibuprofen 2018-0 Yes 600mg Take 1 Unive rs 600 mg 7-15 tablet by ity of tablet 00:00: mouth [place] 00 every 6 Medical (six) Branch hours as needed for Pain (scale 1-3) or Pain (scale 4-6) (Pain). Take with food or milk. docusate Yes 240mg Take 1 Univer s calcium 240 7-15 capsule by it y of mg capsule 00:00: mouth once [place] 00 daily as Medical needed for Branch Constipati on. HYDROcodone Yes 1{tbl} Take 1 Un kevin -acetaminop 7-15 tablet by ity of hen 5-325 00:00: mouth [place] mg tablet 00 every 6 Medical (six) Branch hours as needed for Pain (scale 4-6) (If uncontroll ed by Ibuprofen) . ibuprofen Yes 600mg Take 1 Unive rs 600 mg 7-15 tablet by ity of tablet 00:00: mouth [place] 00 every 6 Medical (six) Branch hours as needed for Pain (scale 1-3) or Pain (scale 4-6). Yes 1{tbl} Take 1 Unive rs vitamin 7-15 tablet by ity of w/FA tablet 00:00: mouth [place] 00 daily. Medical Branch docusate Yes 240mg Take 1 Univer s calcium 240 7-15 capsule by it y of mg capsule 00:00: mouth once [place] 00 daily as Medical needed for Branch Constipati on. ferrous Yes 325mg Take 1 Univers sulfate 325 7-15 tablet by ity of mg (65 mg 00:00: mouth 2 [place] iron) 00 (two) Medical tablet times Branch daily. ibuprofen Yes 600mg Take 1 Unive rs 600 mg 7-15 tablet by ity of tablet 00:00: mouth [place] 00 every 6 Medical (six) Branch hours as needed for Pain (scale 1-3) or Pain (scale 4-6) (Pain). Take with food or milk. simethicone 2022- No 160mg Take 2 Un kevin 80 mg 7-15 03-10 tablets by ity of chewable 00:00: 00:00 mouth [place] tablet 00 :00 after Medical meals and Branch at bedtime as needed for Gas. docusate 2022- No 240mg Take 1 Unive rs calcium 240 7-15 03-10 capsule by i ty of mg capsule 00:00: 00:00 mouth once [place] 00 :00 daily as Medical needed for Branch Constipati on. HYDROcodone 2022- No 1{tbl} Take 1 U nivers -acetaminop 7-15 03-10 tablet by it y of hen 5-325 00:00: 00:00 mouth [place] mg tablet 00 :00 every 6 Medical (six) Branch hours as needed for Pain (scale 4-6) (If uncontroll ed by Ibuprofen) . ibuprofen No 600mg Take 1 Univ ers 600 mg 7-15 03-10 tablet by ity of tablet 00:00: 00:00 mouth [place] 00 :00 every 6 Medical (six) Branch hours as needed for Pain (scale 1-3) or Pain (scale 4-6). 2022- No 1{tbl} Take 1 Univ ers vitamin 7-15 03-10 tablet by ity of w/FA tablet 00:00: 00:00 mouth [place] 00 :00 daily. Medical Branch docusate No 240mg Take 1 Unive rs calcium 240 7-15 03-10 capsule by i ty of mg capsule 00:00: 00:00 mouth once [place] 00 :00 daily as Medical needed for Branch Constipati on. ferrous No 325mg Take 1 Univer s sulfate 325 7-15 03-10 tablet by it y of mg (65 mg 00:00: 00:00 mouth 2 [place] iron[place] 00 :00 (two) Medical tablet times Branch daily. ibuprofen No 600mg Take 1 Univ ers 600 mg 7-15 03-10 tablet by ity of tablet 00:00: 00:00 mouth [place] 00 :00 every 6 Medical (six) Branch hours as needed for Pain (scale 1-3) or Pain (scale 4-6) (Pain). Take with food or milk. simethicone 2022- No 160mg Take 2 Un kevin 80 mg 7-15 03-10 tablets by ity of chewable 00:00: 00:00 mouth [place] tablet 00 :00 after Medical meals and Branch at bedtime as needed for Gas. docusate 2022- No 240mg Take 1 Unive rs calcium 240 7-15 03-10 capsule by i ty of mg capsule 00:00: 00:00 mouth once [place] 00 :00 daily as Medical needed for Branch Constipati on. HYDROcodone 2022- No 1{tbl} Take 1 U nivers -acetaminop 7-15 03-10 tablet by it y of hen 5-325 00:00: 00:00 mouth [place] mg tablet 00 :00 every 6 Medical (six) Branch hours as needed for Pain (scale 4-6) (If uncontroll ed by Ibuprofen) . ibuprofen No 600mg Take 1 Univ ers 600 mg 7-15 03-10 tablet by ity of tablet 00:00: 00:00 mouth [place] 00 :00 every 6 Medical (six) Branch hours as needed for Pain (scale 1-3) or Pain (scale 4-6). 2022- No 1{tbl} Take 1 Univ ers vitamin 7-15 03-10 tablet by ity of w/FA tablet 00:00: 00:00 mouth [place] 00 :00 daily. Medical Branch docusate No 240mg Take 1 Unive rs calcium 240 7-15 03-10 capsule by i ty of mg capsule 00:00: 00:00 mouth once [place] 00 :00 daily as Medical needed for Branch Constipati on. ferrous No 325mg Take 1 Univer s sulfate 325 7-15 03-10 tablet by it y of mg (65 mg 00:00: 00:00 mouth 2 [place] iron) 00 :00 (two) Medical tablet times Branch daily. ibuprofen No 600mg Take 1 Univ ers 600 mg 7-15 03-10 tablet by ity of tablet 00:00: 00:00 mouth [place] 00 :00 every 6 Medical (six) Branch hours as needed for Pain (scale 1-3) or Pain (scale 4-6) (Pain). Take with food or milk. Vital Signs Vital Name Observation Time Observation Value Comments Source Systolic blood 2023-01-31 17:57:00 121 mm[Hg] Univer sity of pressure [facility] Diastolic blood 2023-01-31 17:57:00 79 mm[Hg] Unive rsity of pressure [facility] Heart rate 2023-01-31 17:57:00 82 /min [facility] [place] [facility] Body temperature 2023-01-31 17:57:00 36.44 [place] [facility] [place] [facility] Respiratory rate 2023-01-31 17:57:00 18 /min [facility] [place] [facility] Body height 2023-01-31 17:57:00 154.9 cm [facility] [place] [facility] Body weight 2023-01-31 17:57:00 86.41 kg [facility] [place] [facility] BMI 2023-01-31 17:57:00 35.99 kg/m2 Universi ty of [place] [facility] Branch Systolic blood 2020-10-23 14:19:00 121 mm[Hg] Univer sity of pressure [place] [facility] Diastolic blood 2020-10-23 14:19:00 75 mm[Hg] Unive rsity of pressure [place] [facility] Heart rate 2020-10-23 14:19:00 77 /min [facility] [place] [facility] Body temperature 2020-10-23 14:19:00 37.17 [place]an [facility] [place] [facility] Respiratory rate 2020-10-23 14:19:00 16 /min Univ ersity of [place] [facility] Branch Body height 2020-10-23 14:19:00 154.9 cm [facility] [place] [facility] Body weight 2020-10-23 14:19:00 87.998 kg [facility] [place] [facility] BMI 2020-10-23 14:19:00 36.66 kg/m2 [facility] [place] [facility] Oxygen saturation in 2020-10-23 14:19:00 97 /min University of Arterial blood by [facility] Pulse oximetry Branch Systolic blood 2020-05-14 14:31:00 130 mm[Hg] Univer sity of pressure [place] [facility] Diastolic blood 2020-05-14 14:31:00 85 mm[Hg] Unive rsity of pressure [place] [facility] Branch Heart rate 2020-05-14 14:31:00 92 /min Universi ty of [place] [facility] Branch Body temperature 2020-05-14 14:31:00 37.06 Rowan Univ ersity of [place] [facility] Branch Respiratory rate 2020-05-14 14:31:00 18 /min Univ ersity of [place] [facility] Branch Body weight 2020-05-14 14:31:00 90.719 kg [facility] [place] [facility] BMI 2020-05-14 14:31:00 37.79 kg/m2 [facility] Oxygen saturation in 2020-05-14 14:31:00 100 /min [facility] blood by [facility] Pulse oximetry Branch Procedures Procedure Date / Time Performing Clinician Source Performed INSURANCE CORRESPONDENCE 2023-03-19 05:01:00 Doctor West, [facility] Name Medical [place] ASSIGNMENT OF BENEFITS 2023-01-31 17:39:11 [facility] [place] [facility] [place] POCT TEST 2023-01-31 00:00:00 López Rodgers [facility] XR WRIST 3+ VW RIGHT 2020-10-23 14:48:47 Natanael Bagley [facility] NOTICE OF PRIVACY 2020-10-23 14:13:40 Doctor Jenna, [facility] [place] Medical [place] CONSENT/REFUSAL FOR 2020-10-23 14:13:22 Doctor Jenna, [facility] DIAGNOSIS AND TREATMENT [place] [facility] NOTICE OF PRIVACY 2020-05-14 14:57:33 Doctor Jenna, [facility] [place] [facility] RAPID STREP SCREEN FOR 2020-05-14 14:49:00 Keturah Boudreaux [facility] GROUP A Medical Branch COVID-19 (ID NOW RAPID 2020-05-14 14:49:00 Keturah Boudreaux [facility] TESTING) Medical Branch CONSENT/REFUSAL FOR 2020-05-14 14:22:51 Doctor Jenna [facility] DIAGNOSIS AND TREATMENT [place] Medical [place] Encounters Start End Encounter Admission Attending Care Care Encounter Source Date/Time Date/Time Type Type Clinicians Facility Department ID 2021-09-22 Emergency [facility] [id number] Univers 08:05:11 ity of [facility] 2021-09-21 Emergency [facility] [id number] Univers 02:00:45 it of [facility] 2023-03-20 2023-03-20 Outpatient R CHRISTOPHER GERMAN [facility] B [id number] Univers 11:15:00 11:15:00 CHRISTOPHER GERMAN [facility] 2023-03-19 2023-03-19 Orders Doctor HARE [id number] Univers 00:00:00 00:00:00 Only Unassigned, JUAN [id number] ity of [place] [facility] [id number] Sal as [id number] [address] 2023-03-14 2023-03-14 Outpatient R VISHAL [facility] [id number] Univers 10:00:00 10:00:00 ity of [facility] 2023-01-31 2023-01-31 Outpatient R VISHAL [facility] [id number] Univers 11:30:00 12:09:02 ity of [facility] 2023-01-31 2023-01-31 Office Vishal [facility] [id number] Univers 11:30:00 12:09:02 Visit Shai MUJICA [id number] it y of WOMEN'S [id number] [facility] [place] [facility] [phone] [facility] 134 Branch 2023-01-31 2023-01-31 Orders Doctor HARE [id number] Univers 00:00:00 00:00:00 Only Unassigned, JUAN [id number] ity of [place] [facility] [id number] Sal as [phone] [address] 2020-10-23 2020-10-23 Emergency [facility] [id number] Univers 08:22:00 09:18:00 Natanael Marie [id number] i ty of [place] [id number] [facility] [phone] [address] 2020-05-14 2020-05-14 Emergency Janusz, [facility] [id number] Univers 09:33:00 11:03:00 Keturah Marie [id number] ity of [place] [id number] [facility] [id number] [address] 2020-05-14 2020-05-14 Orders Doctor HARE [id number] Univers 00:00:00 00:00:00 Only Unassigned, JUAN [id number] ity of [place] [facility] [id number] Sal as [id number] [address] 2020-03-22 2020-03-22 Outpatient Toña_P [id number] [place] 10:50:00 10:50:00 0429 [facility] Results Test Description Test Time Test Comments Results Result Comments Source POCT TEST 2023-01-31 17:56:00 Test Item Value Reference Range Interpretation Comme nts POCT PREG (test code = 1605) Negative On board controls acceptable with C Line (test code = 3574) Yes POCT PREG LOT # (test code = 3575) POCT PREG TEST DATE (test code = 3576) [id number] 17:56:00 Test Item Value Reference Range Interpretation Comments POCT PREG (test code = 1605) Negative On board controls acceptable with C Yes Line (test code = 3574) POCT PREG LOT # (test code = 3575) POCT PREG TEST DATE (test code = 3576) [facility] STREP SCREEN FOR GROUP [id number] 15:41:00 Test Item Value Reference Range Interpretation Comments Streptococcus pyogenes (group A) Negative Negative antigen (test code = 80661-4) Lab Interpretation (test code = Normal 58445-7) [facility] NOW RAPID TESTING)2020-05-14 15:38:00 Test Item Value Reference Range Interpretation Comments SARS-CoV-2 Rapid ID NOW Not Detected Not Detected (test code = 82328-4) PHYLICIA (test code = PHYLICIA) ID NOW COVID-19 Assay is an isothermal nucleic acid amplification test intended for the qualitative detection of nucleic acid from SARS-CoV-2 viral RNA in nasopharyngeal (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 It is used under Emergency Use [...] indicated. Lab Interpretation Normal (test code = 22807-0) [facility]
[2023-08-28 07:36] LABS: Absolute Lymphocytes (CBC) 3.5 K/uL (0.7-4.9); Hematocrit 41.8 % (36.0-45.0); Lymphocytes % 27.4 % (15.3-44.8); MCV 84.6 fL (80-100); MPV 8.9 fL (7.6-11.3); Platelets 396 thou/uL (152-406); RBC Red Blood Cell Count 4.94 M/uL (3.86-4.86)
[2023-08-28] MEDS ORDERED: ASPIRIN 81 MG CHEWABLE TABLET ONE (08:09)
[2023-08-28 08:16] LABS: Magnesium 2.2 mg/dL (1.6-2.4)
--- NOTE | 2023-08-28 08:51 | RAD REPORT ---
EXAM DESCRIPTION: RADChest Single View08/28/2023 7:58 am CLINICAL HISTORY: CHEST PAIN COMPARISON: Chest Single View dated 02/19/2023 TECHNIQUE: Portable AP view of the chest. FINDINGS: The lungs are clear. No pneumothorax or effusion. The cardiomediastinal contours are unre markable. IMPRESSION: No acute cardiopulmonary process.
--- NOTE | 2023-08-28 09:18 | EDPHYS ---
Physician Documentation [facility] Name: Marta Al Age: 28 yrs Sex: Female : 1995 Arrival Date: 08/28/2023 Time: 05:58 Bed 6 Private MD: ED Physician James Celeste HPI: 08/28 07:48 This 28 yrs old Female presents to ER via Ambulatory with complaints of Chest Pressure, ms3 Breathing Difficulty. 07:48 28-year-old female with past medical history of hypothyroidism presents for chest ms3 pressure that began last week. Patient states the episodes are intermittent lasting a couple minutes when they occur. Patient endorses shortness of breath. Patient denies nausea or vomiting. Patient endorses having a NuvaRing for control. Patient denies pain currently. Historical: - Allergies: 06:30 No Known Allergies; jb4 - PMHx: 06:30 Hypothyroidism; jb4 - PSHx: 06:30 section; jb4 - Immunization history:: Adult Immunizations up to date. - Social history:: Smoking status: Patient denies any tobacco usage or history of. Patient uses alcohol, only on a social basis. ROS: 07:48 Constitutional: Negative for fever, and chills. Neck: Negative for injury, pain, and ms3 swelling, 07:48 Abdomen/GI: Negative for abdominal pain, nausea, vomiting, diarrhea, and constipation, 07:48 MS/Extremity: Negative for injury and deformity, Skin: Negative for injury, rash, and discoloration, Neuro: Negative for headache, weakness, numbness, tingling. 07:48 Cardiovascular: Positive for chest pain, 07:48 Respiratory: Positive for shortness of breath, Exam: 07:48 Constitutional: This is a well developed, well nourished patient who is awake, alert, ms3 and in no acute distress. Head/Face: Normocephalic, atraumatic. Neck: Trachea midline, no cervical lymphadenopathy. Supple, full range of motion without nuchal rigidity, or vertebral point tenderness. No Meningismus. Chest/axilla: Normal chest wall appearance and motion. Nontender with no deformity. Cardiovascular: Regular rate and rhythm with a normal S1 and S2. No gallops, murmurs, or rubs. Normal PMI, no JVD. No pulse deficits. Respiratory: Lungs have equal breath sounds bilaterally, clear to auscultation and percussion. No rales, rhonchi or wheezes noted. No increased work of breathing, no retractions or nasal flaring. Abdomen/GI: Soft, non-tender, with normal bowel sounds. No distension or tympany. No guarding or rebound. No evidence of tenderness throughout. Skin: Warm, dry with normal turgor. Normal color with no rashes, no lesions, and no evidence of cellulitis. MS/ Extremity: Pulses equal, no cyanosis. Neurovascular intact. Full, normal range of motion. 07:57 ECG was reviewed by the Attending Physician. ms3 Vital Signs: 06:26 BP 119 / 84; Pulse 86; Resp 16; Temp 97.8(O); Pulse Ox 100% on R/A; Weight 86.18 kg jb4 (R); Height 5 ft. 1 in. (R); Pain 4/10; 08:47 BP 114 / 83; Pulse 74; Resp 18; Pulse Ox 99% on R/A; ph 06:26 Body Mass Index 35.90 (86.18 kg, 154.94 cm) jb4 06:26 Pain Scale: Adult jb4 MDM: 07:09 Patient medically screened. ms3 07:48 Differential diagnosis: abnormal EKG, acute myocardial infarction, chest wall pain, ms3 pulmonary embolus. 08:45 HEART Score: History: Slightly Suspicious (0), ECG: Normal (0), Age: < or = 45 years ms3 (0), Risk Factors: No Risk Factors Known (0), Troponin: < or = 1 x Normal Limit (0), Total Score = 0. Independent interpretation of the following test(s) in the Emergency Department X-Ray: My interpretation is CXR image reviewed by me does not reveal pleural effusion or pulmonary edema. 09:17 Data reviewed: vital signs, nurses notes, lab test result(s), EKG, radiologic studies, ms3 and as a result, I will discharge patient. Consideration of Admission/Observation Escalation of care including admission/observation considered. Heart score 0. Counseling: I had a detailed discussion with the patient and/or guardian regarding the historical points, exam findings, and any diagnostic results supporting the discharge/admit diagnosis, lab results, radiology results, the need for outpatient follow up, to return to the emergency department if symptoms worsen or persist or if there are any questions or concerns that arise at home. ED course: Discussed labs, EKG, chest x-ray with patient. Patient to follow-up as instructed. All questions were answered. Return precautions discussed include worsening symptoms, or any other concerns. Patient understands and agrees with plan. On reevaluation patient is alert and oriented x4, no apparent distress, nontoxic-appearing, ambulatory in emergency primary, speaking full sentences. 08/28 07:09 Order name: Basic Metabolic Panel; Complete Time: 08:45 ms3 08/28 07:09 Order name: CBC with Diff; Complete Time: 08:45 ms3 08/28 07:09 Order name: D-Dimer; Complete Time: 08:45 ms3 08/28 07:09 Order name: Magnesium; Complete Time: 08:45 ms3 08/28 07:09 Order name: Troponin HS; Complete Time: 08:45 ms3 08/28 07:09 Order name: XRAY Chest (1 view); Complete Time: 08:53 ms3 08/28 07:09 Order name: EKG; Complete Time: 07:10 ms3 08/28 07:09 Order name: Cardiac monitoring; Complete Time: 07:42 ms3 08/28 07:09 Order name: EKG - Nurse/Tech; Complete Time: 07:42 ms3 08/28 07:09 Order name: IV Saline Lock; Complete Time: 07:42 ms3 08/28 07:09 Order name: Labs collected and sent; Complete Time: 07:42 ms3 08/28 07:09 Order name: O2 Per Protocol; Complete Time: 07:42 ms3 08/28 07:09 Order name: O2 Sat Monitoring; Complete Time: 07:42 ms3 EC:57 Rate is 68 beats/min. Rhythm is regular. QRS [place] is Normal. [place] interval is normal. QRS ms3 interval is normal. Clinical impression: Normal ECG. Interpreted by me. Reviewed by me. Administered Medications: 07:58 Drug: Aspirin PO Chewable Tablet 324 mg PO once; 81 mg tablets x 4 Route: PO; kc6 09:11 Follow up: Response: No adverse reaction kc6 Disposition Summary: 08/28/23 09:17 Discharge Ordered Notes: Location: Home ms3 Condition: Stable ms3 Diagnosis - Chest pain, unspecified ms3 Followup: ms3 - With: Layo Sanchez MD - When: 1 - 2 days - Reason: Recheck today's complaints Discharge Instructions: - Discharge Summary Sheet ms3 - Nonspecific Chest Pain, Adult ms3 Forms: - Medication Reconciliation Form ms3 - Thank You Letter ms3 - Antibiotic Education ms3 - Prescription Opioid Use ms3 - Patient Portal Instructions ms3 - Leadership Thank You Letter ms3 Signatures: Dispatcher [employer] Edwin Martin, RN RN jb4 James Celeste DO DO ms3 Geneva Haider, TRIAL MANAGER TRIAL MANAGER 7 Jacquie Bess, RN RN kc6 Corrections: (The following items were deleted from the chart) 06:31 06:30 PMHx: "Borderline" diabetes ( section); jb4 jb4
--- NOTE | 2023-08-28 09:18 | ER ---
Nurse's Notes [facility] Name: Marta Al Age: 28 yrs Sex: Female : 1995 Arrival Date: 08/28/2023 Time: 05:58 Bed 6 Private MD: Diagnosis: Chest pain, unspecified Presentation: 08/28 06:26 Chief complaint: Patient states: I am having chest pressure and SOB that started jb4 yesterday at 2100. Its a 03/03. Coronavirus screen: At this time, the client does not indicate any symptoms associated with coronavirus-19. Ebola Screen: No symptoms or risks identified at this time. Initial Sepsis Screen: Does the patient meet any 2 criteria? No. Patient's initial sepsis screen is negative. Does the patient have a suspected source of infection? No. Patient's initial sepsis screen is negative. Risk Assessment: Do you want to hurt yourself or someone else? Patient reports no desire to harm self or others. Onset of symptoms was August 28, 2023. 06:26 Method Of Arrival: Ambulatory jb4 06:26 Acuity: BEE 3 jb4 Historical: - Allergies: 06:30 No Known Allergies; jb4 - PMHx: 06:30 Hypothyroidism; jb4 - PSHx: 06:30 section; jb4 - Immunization history:: Adult Immunizations up to date. - Social history:: Smoking status: Patient denies any tobacco usage or history of. Patient uses alcohol, only on a social basis. Screenin:[facility] ED Fall Risk Assessment (Adult) History of falling in the last 3 months, kc6 including since admission No falls in past 3 months (0 pts) Confusion or Disorientation No (0 pts) Intoxicated or Sedated No (0 pts) Impaired Gait No (0 pts) Mobility Assist Device Used No (0 pt) Altered Elimination No (0 pt) Score/Fall Risk Level 0 - 2 = Low Risk. Abuse screen: Denies threats or abuse. Denies injuries from another. Nutritional screening: No deficits noted. Tuberculosis screening: No symptoms or risk factors identified. Assessment: 08:46 Reassessment: Patient appears in no apparent distress at this time. Patient and/or ph family updated on plan of care and expected duration. Pain level reassessed. Patient is alert, oriented x 3, equal unlabored respirations, skin warm/dry/pink. Vital Signs: 06:26 BP 119 / 84; Pulse 86; Resp 16; Temp 97.8(O); Pulse Ox 100% on R/A; Weight 86.18 kg jb4 (R); Height 5 ft. 1 in. (R); Pain 4/10; 08:47 BP 114 / 83; Pulse 74; Resp 18; Pulse Ox 99% on R/A; ph 06:26 Body Mass Index 35.90 (86.18 kg, 154.94 cm) jb4 06:26 Pain Scale: Adult jb4 ED Course: 06:03 Patient arrived in ED. ag3 06:26 Edwin Moses, RN is Primary Nurse. jb4 06:29 Triage completed. jb4 06:30 Arm band placed on right wrist. jb4 07:00 Patient has correct armband on for positive identification. Placed in gown. Bed in low kc6 position. Call light in reach. Side rails up X 1. Client placed on continuous cardiac and pulse oximetry monitoring. NIBP monitoring applied. court recording monitor on. 07:00 Patient maintains SpO2 saturation greater than 95% on room air. kc6 07:03 James Celeste DO is Attending Physician. ms3 07:10 EKG done, by ED staff. sm8 07:42 Inserted saline lock: 22 gauge in right forearm, using aseptic technique. Blood ds4 collected. 08:00 XRAY Chest (1 view) In Process Unspecified. EDMS 09:17 Layo Sanchez MD is Referral Physician. ms3 09:53 No provider procedures requiring assistance completed. IV discontinued, intact, kc6 bleeding controlled, No redness/swelling at site. Pressure dressing applied. Administered Medications: 07:58 Drug: Aspirin PO Chewable Tablet 324 mg PO once; 81 mg tablets x 4 Route: PO; kc6 09:11 Follow up: Response: No adverse reaction kc6 Medication: 09:53 VIS not applicable for this client. kc6 Outcome: 09:17 Discharge ordered by . ms3 09:53 Discharged to home ambulatory, kc6 09:53 Condition: improved 09:53 Discharge instructions given to patient, Instructed on discharge instructions, follow up and referral plans. Demonstrated understanding of instructions, follow-up care, 09:53 Patient left the ED. kc6 Signatures: Dispatcher [employer] EDMS Vladimir Segundo ds4 Carolyn Lane, RN RN ph Edwin Moses RN RN jb4 Hemalatha Adkins ag3 James Celeste DO DO ms3 Jacquie Bess RN RN kc6 Lisa Booker sm8 Corrections: (The following items were deleted from the chart) 06:31 06:30 PMHx: "Borderline" diabetes ( section); jb4 jb4
[2023-08-28 10:03] VITALS: TEMP 97.8
[2023-08-28 10:09] VITALS: BP 114/83; O2SAT 99
--- NOTE | 2023-08-28 16:57 | EKG ---
Test Date: 2023-08-28 Test Time: 06:58:26 [employer] Admissions Representative: DREA MEASUREMENT RESULTS: Intervals: Rate: 68 VA: 134 QRSD: 84 QT: 426 QTc: 452 [place]: P: 34 VA: 134 QRS: 35 T: 26 INTERPRETIVE STATEMENTS: Normal sinus rhythm Normal ECG Compared to ECG 02/19/2023 08:31:16 Sinus bradycardia no longer present Sinus arrhythmia no longer present Electronically Signed On 08-28-23 16:55:57 CDT by Layo Sanchez
== END 2023-08-28 09:53 | disposition home or self-care (01) ==
LOC: ER 05:58
DX: R07.89 Other chest pain (principal)
CPT/HCPCS: 36415; 71045; 80048; 83735; 84484; 85025; 85379; 93005; 99285

== ENCOUNTER 2024-02-21 19:40 | Emergency (ER) | payer BC, OTHER ==
--- OUTSIDE RECORDS SUMMARY | 2024-02-21 19:43 | XMS REPORT | Continuity of Care Document ---
Author Name Unknown Address [address] [facility] [place] [address] [facility] thconnect Address [address] [facility] [address] [place] [address] Care Team Providers Care Continuity Editor Name Role Phone Cdoey Mendoza Jr. Primary Care Physician + [phone] KARIME AYALA Attending Clinician URIEL Hagan Attending Clinician URIEL Gomes Attending Clinician [facility] Attending Clinician Unavailable Karime Ayala CNM Attending Clinician [phone] Doctor Unassigned, [place] Attending Clinician CHRISTOPHER Morse Attending Clinician UnavailCHRISTOPHER Treviño Attending Clinician UnavailLÓPEZ Lopez Attending Clinician Unavailable López Art MD Attending Clinician [phone] Natanael Bagley MD Attending Clinician [phone] Keturah Boudreaux DO Attending Clinician [phone] Rajtramaine_P Attending Clinician Unavailable Toña_P Admitting Clinician Unavailable Payers Payer Name Policy Type Policy Number Effective Date Expirati on Date Source [facility] [id number] 2017 00:00:00 [facility] STATE [id number] 2022 00:00:00 [place] [id number] 2024 00:00:00 Problems Condition Name Condition Details Condition Category Status Onset Date Resolution Date Last Treatment Date Treating Clinician Comments Source Abnormal maternal glucose tolerance, antepartum Abnormal maternal glucose tolerance, antepartum Disease Active 02-10 00:00: 00 [facility] Previous delivery affecting , antepartum Previous delivery affecting , antepartum Disease Active 02-10 00:00: 00 [facility] History of hypothyroi dism History of hypothyroi dism Disease Active 02-10 00:00: 00 [facility] Obesity affecting Obesity affecting Disease Active 02-10 00:00: 00 [facility] Lipoma of neck Lipoma of neck Disease Active 02-10 00:00: 00 [facility] Contracept ama management Contracept ama management Disease Active 07-22 00:00: 00 [facility] Obesity (BMI 30-39.9) Obesity (BMI 30-39.9) Disease Active 07-22 00:00: 00 [facility] Rubella non-immune status, antepartum Rubella non-immune status, antepartum Disease Active 2016-11 00:00: 00 [facility] H/O: hypothyroi dism H/O: hypothyroi dism Disease Active 2016-11 00:00: 00 Overview: Formattin g of this note might be different from the original. She reports dx of hypothyro idism around 2012. States she has trouble recalling accurate informati on. She took hypothyro id medicatio ns for almost 1 year; self d/c'd. Reports asx since then. TSH levels noted in EPIC in 2012 were both normal (3.71 and 3.74). [facility] Allergies, Adverse Reactions, Alerts Allergy Name Allergy Type Status Severity Reaction(s) Onset Date Inactive Date Treating Clinician Comments Source NO KNOWN ALLERGIE S Drug Class Active [facility] Social History Social Habit Start Date Stop Date Quantity Comments Source ASSERTION 2024-01-23 00:00:00 [facility] of Social function 2024-02-10 00:00:00 2024-02-10 00:00:00 [facility] Tobacco use and exposure 2024-02-10 00:00:00 2024-02-10 00:00:00 Smokeless tobacco non-user [facility] Alcohol intake 2024-02-10 00:00:00 2024-02-10 00:00:00 Lifetime non-drinker (finding) [facility] Exposure to SARS-CoV-2 (event) 2023-01-21 00:00:00 2023-01-31 11:40:00 Not sure [facility] Sex Assigned At 1995 00:00:00 1995 00:00:00 [facility] Smoking Status Start Date Stop Date Source Never smoked tobacco [facility] Medications Ordered Medication Name Filled Medication Name Start Date Stop Date Current Medication? Ordering Clinician Indication Dosage Frequency Signature (SIG) Comments Components Source NUVARING 0.12-0.015 mg/24 hr vaginal insert 3-10 00:00: 00 Yes [id number] 1{each} Insert 1 Each into vagina once every month. Insert vaginally and leave in place for 3 consecutiv e weeks, then remove for 1 week. [facility] NUVARING 0.12-0.015 mg/24 hr vaginal insert 3-10 00:00: 00 Yes [id number] 1{each} Insert 1 Each into vagina once every month. Insert vaginally and leave in place for 3 consecutiv e weeks, then remove for 1 week. [facility] NUVARING 0.12-0.015 mg/24 hr vaginal insert 3-10 00:00: 00 Yes [id number] 1{each} Insert 1 Each into vagina once every month. Insert vaginally and leave in place for 3 consecutiv e weeks, then remove for 1 week. [facility] albuterol 90 mcg/actuati on inhaler 2 00:00: 00 Yes INHALE 1 TO 2 PUFFS BY MOUTH EVERY 4 HOURS NEEDED [facility] ondansetron 4 mg disintegrat ing tablet 2-27 00:00: 00 Yes DISSOLVE 1 TABLET ON TONGUE EVERY 8 HOURS NEEDED FOR NAUSEA AND VOMITING [facility] naproxen 500 mg tablet 2019-11 1 00:00: 00 11-03 05:59 :00 No [id number] 500mg Take 1 tablet by mouth 2 (two) times daily with meals for 10 days. [facility] simethicone 80 mg chewable tablet 06-07 00:00: 00 Yes 160mg Take 2 tablets by mouth after meals and at bedtime as needed for Gas. [facility] docusate calcium 240 mg capsule 06-07 00:00: 00 Yes 240mg Take 1 capsule by mouth once daily as needed for Constipati on. [facility] HYDROcodone -acetaminop hen 5-325 mg tablet 06-07 00:00: 00 Yes 1{tbl} Take 1 tablet by mouth every 6 (six) hours as needed for Pain (scale 4-6) (If uncontroll ed by Ibuprofen) . [facility] simethicone 80 mg chewable tablet 06-07 00:00: 00 Yes 160mg Take 2 tablets by mouth after meals and at bedtime as needed for Gas. [facility] ibuprofen 600 mg tablet 06-07 00:00: 00 Yes 600mg Take 1 tablet by mouth every 6 (six) hours as needed for Pain (scale 1-3) or Pain (scale 4-6). [facility] vitamin w/FA tablet 06-07 00:00: 00 Yes 1{tbl} Take 1 tablet by mouth daily. [facility] docusate calcium 240 mg capsule 06-07 00:00: 00 Yes 240mg Take 1 capsule by mouth once daily as needed for Constipati on. [facility] ferrous sulfate 325 mg (65 mg iron) tablet 06-07 00:00: 00 Yes 325mg Take 1 tablet by mouth 2 (two) times daily. [facility] ibuprofen 600 mg tablet 06-07 00:00: 00 Yes 600mg Take 1 tablet by mouth every 6 (six) hours as needed for Pain (scale 1-3) or Pain (scale 4-6) (Pain). Take with food or milk. [facility] docusate calcium 240 mg capsule 06-07 00:00: 00 Yes 240mg Take 1 capsule by mouth once daily as needed for Constipati on. [facility] HYDROcodone -acetaminop hen 5-325 mg tablet 06-07 00:00: 00 Yes 1{tbl} Take 1 tablet by mouth every 6 (six) hours as needed for Pain (scale 4-6) (If uncontroll ed by Ibuprofen) . [facility] ibuprofen 600 mg tablet 06-07 00:00: 00 Yes 600mg Take 1 tablet by mouth every 6 (six) hours as needed for Pain (scale 1-3) or Pain (scale 4-6). [facility] vitamin w/FA tablet 06-07 00:00: 00 Yes 1{tbl} Take 1 tablet by mouth daily. [facility] docusate calcium 240 mg capsule 06-07 00:00: 00 Yes 240mg Take 1 capsule by mouth once daily as needed for Constipati on. [facility] ferrous sulfate 325 mg (65 mg iron) tablet 06-07 00:00: 00 Yes 325mg Take 1 tablet by mouth 2 (two) times daily. [facility] ibuprofen 600 mg tablet 06-07 00:00: 00 Yes 600mg Take 1 tablet by mouth every 6 (six) hours as needed for Pain (scale 1-3) or Pain (scale 4-6) (Pain). Take with food or milk. [facility] simethicone 80 mg chewable tablet 06-07 00:00: 00 Yes 160mg Take 2 tablets by mouth after meals and at bedtime as needed for Gas. [facility] docusate calcium 240 mg capsule 06-07 00:00: 00 Yes 240mg Take 1 capsule by mouth once daily as needed for Constipati on. [facility] HYDROcodone -acetaminop hen 5-325 mg tablet 06-07 00:00: 00 Yes 1{tbl} Take 1 tablet by mouth every 6 (six) hours as needed for Pain (scale 4-6) (If uncontroll ed by Ibuprofen) . [facility] ibuprofen 600 mg tablet 06-07 00:00: 00 Yes 600mg Take 1 tablet by mouth every 6 (six) hours as needed for Pain (scale 1-3) or Pain (scale 4-6). [facility] vitamin w/FA tablet 06-07 00:00: 00 Yes 1{tbl} Take 1 tablet by mouth daily. [facility] docusate calcium 240 mg capsule 06-07 00:00: 00 Yes 240mg Take 1 capsule by mouth once daily as needed for Constipati on. [facility] ferrous sulfate 325 mg (65 mg iron) tablet 06-07 00:00: 00 Yes 325mg Take 1 tablet by mouth 2 (two) times daily. [facility] ibuprofen 600 mg tablet 06-07 00:00: 00 Yes 600mg Take 1 tablet by mouth every 6 (six) hours as needed for Pain (scale 1-3) or Pain (scale 4-6) (Pain). Take with food or milk. [facility] simethicone 80 mg chewable tablet 06-07 00:00: 00 Yes 160mg Take 2 tablets by mouth after meals and at bedtime as needed for Gas. [facility] docusate calcium 240 mg capsule 06-07 00:00: 00 Yes 240mg Take 1 capsule by mouth once daily as needed for Constipati on. [facility] HYDROcodone -acetaminop hen 5-325 mg tablet 06-07 00:00: 00 Yes 1{tbl} Take 1 tablet by mouth every 6 (six) hours as needed for Pain (scale 4-6) (If uncontroll ed by Ibuprofen) . [facility] ibuprofen 600 mg tablet 06-07 00:00: 00 Yes 600mg Take 1 tablet by mouth every 6 (six) hours as needed for Pain (scale 1-3) or Pain (scale 4-6). [facility] vitamin w/FA tablet 06-07 00:00: 00 Yes 1{tbl} Take 1 tablet by mouth daily. [facility] docusate calcium 240 mg capsule 06-07 00:00: 00 Yes 240mg Take 1 capsule by mouth once daily as needed for Constipati on. [facility] ferrous sulfate 325 mg (65 mg iron) tablet 06-07 00:00: 00 Yes 325mg Take 1 tablet by mouth 2 (two) times daily. [facility] ibuprofen 600 mg tablet 06-07 00:00: 00 Yes 600mg Take 1 tablet by mouth every 6 (six) hours as needed for Pain (scale 1-3) or Pain (scale 4-6) (Pain). Take with food or milk. [facility] simethicone 80 mg chewable tablet 06-07 00:00: 00 01-31 00:00 :00 No 160mg Take 2 tablets by mouth after meals and at bedtime as needed for Gas. [facility] docusate calcium 240 mg capsule 06-07 00:00: 00 01-31 00:00 :00 No 240mg Take 1 capsule by mouth once daily as needed for Constipati on. [facility] HYDROcodone -acetaminop hen 5-325 mg tablet 06-07 00:00: 00 01-31 00:00 :00 No 1{tbl} Take 1 tablet by mouth every 6 (six) hours as needed for Pain (scale 4-6) (If uncontroll ed by Ibuprofen) . [facility] ibuprofen 600 mg tablet 06-07 00:00: 00 01-31 00:00 :00 No 600mg Take 1 tablet by mouth every 6 (six) hours as needed for Pain (scale 1-3) or Pain (scale 4-6). [facility] vitamin w/FA tablet 06-07 00:00: 00 01-31 00:00 :00 No 1{tbl} Take 1 tablet by mouth daily. [facility] docusate calcium 240 mg capsule 06-07 00:00: 01-31 00:00 :00 No 240mg Take 1 capsule by mouth once daily as needed for Constipati on. [facility] ferrous sulfate 325 mg (65 mg iron) tablet 06-07 00:00: 01-31 00:00 :00 No 325mg Take 1 tablet by mouth 2 (two) times daily. [facility] ibuprofen 600 mg tablet 06-07 00:0001-31 00:00 :00 No 600mg Take 1 tablet by mouth every 6 (six) hours as needed for Pain (scale 1-3) or Pain (scale 4-6) (Pain). Take with food or milk. [facility] simethicone 80 mg chewable tablet 06-07 00:00: 01-31 00:00 :00 No 160mg Take 2 tablets by mouth after meals and at bedtime as needed for Gas. [facility] docusate calcium 240 mg capsule 06-07 00:00: 00 01-31 00:00 :00 No 240mg Take 1 capsule by mouth once daily as needed for Constipati on. [facility] HYDROcodone -acetaminop hen 5-325 mg tablet 06-07 00:00: 00 01-31 00:00 :00 No 1{tbl} Take 1 tablet by mouth every 6 (six) hours as needed for Pain (scale 4-6) (If uncontroll ed by Ibuprofen) . [facility] ibuprofen 600 mg tablet 06-07 00:00: 00 01-31 00:00 :00 No 600mg Take 1 tablet by mouth every 6 (six) hours as needed for Pain (scale 1-3) or Pain (scale 4-6). [facility] vitamin w/FA tablet 06-07 00:00: 00 01-31 00:00 :00 No 1{tbl} Take 1 tablet by mouth daily. [facility] docusate calcium 240 mg capsule 06-07 00:00: 00 01-31 00:00 :00 No 240mg Take 1 capsule by mouth once daily as needed for Constipati on. [facility] ferrous sulfate 325 mg (65 mg iron) tablet 06-07 00:00: 00 01-31 00:00 :00 No 325mg Take 1 tablet by mouth 2 (two) times daily. [facility] ibuprofen 600 mg tablet 06-07 00:00: 00 01-31 00:00 :00 No 600mg Take 1 tablet by mouth every 6 (six) hours as needed for Pain (scale 1-3) or Pain (scale 4-6) (Pain). Take with food or milk. [facility] Vital Signs Vital Name Observation Time Observation Value Comments S aurea Systolic blood pressure 2024-02-10 18:37:00 130 mm[Hg] [facility] Diastolic blood pressure 2024-02-10 18:37:00 87 mm[Hg] [facility] Heart rate 2024-02-10 18:37:00 91 /min [facility] Body temperature 2024-02-10 18:35:00 36.72 Rowan [facility] Respiratory rate 2024-02-10 18:35:00 20 /min [facility] Body height 2024-02-10 18:35:00 154.9 cm [facility] Body weight 2024-02-10 18:35:00 89.359 kg [facility] BMI 2024-02-10 18:35:00 37.22 kg/m2 [facility] Systolic blood pressure 2023-01-31 17:57:00 121 mm[Hg] [facility] Diastolic blood pressure 2023-01-31 17:57:00 79 mm[Hg] [facility] Heart rate 2023-01-31 17:57:00 82 /min [facility] Body temperature 2023-01-31 17:57:00 36.44 Rowan [facility] Respiratory rate 2023-01-31 17:57:00 18 /min [facility] Body height 2023-01-31 17:57:00 154.9 cm [facility] Body weight 2023-01-31 17:57:00 86.41 kg [facility] BMI 2023-01-31 17:57:00 35.99 kg/m2 [facility] Systolic blood pressure 2020-10-23 14:19:00 121 mm[Hg] [facility] Diastolic blood pressure 2020-10-23 14:19:00 75 mm[Hg] [facility] Heart rate 2020-10-23 14:19:00 77 /[facility] Body temperature 2020-10-23 14:19:00 37.17 Rowan [facility] Respiratory rate 2020-10-23 14:19:00 16 /min [facility] Body height 2020-10-23 14:19:00 154.9 cm [facility] Body weight 2020-10-23 14:19:00 87.998 kg [facility] BMI 2020-10-23 14:19:00 36.66 kg/m2 [facility] Oxygen saturation in Arterial blood by Pulse oximetry 2020-10-23 14:19:00 97 /min [facility] Systolic blood pressure 2020-05-14 14:31:00 130 mm[Hg] [facility] Diastolic blood pressure 2020-05-14 14:31:00 85 mm[Hg] [facility] Heart rate 2020-05-14 14:31:00 92 /min [facility] Body temperature 2020-05-14 14:31:00 37.06 Rowan [facility] Respiratory rate 2020-05-14 14:31:00 18 /min [facility] Body weight 2020-05-14 14:31:00 90.719 kg [facility] BMI 2020-05-14 14:31:00 37.79 kg/m2 [facility] Oxygen saturation in Arterial blood by Pulse oximetry 2020-05-14 14:31:00 100 /min [facility] Procedures Procedure Date / Time Performed Performing Clinician Source PAP SMEAR-LIQUID BASED-CP 2024-02-10 21:31:00 Karime Moscoso [facility] POCT URINALYSIS W/O SPECIFIC GRAVITY 2024-02-10 18:29:00 Karime Ayala [facility] POCT TEST 2024-02-10 18:28:00 Sarah Ayala [facility] GLUCOSE 1 HOUR POST PRANDIAL 2024-02-10 07:35:00 Karime Ayala [facility] FREE T4 2024-02-10 07:35:00 Karmie Ayala [facility] THYROID STIMULATING HORMONE 2024-02-10 07:35:00 Karime Ayala [facility] CBC WITH DIFF 2024-02-10 07:35:00 Karime Ayala [facility] HEPATITIS B SURFACE ANTIGEN 2024-02-10 07:35:00 Karime Ayala [facility] HCV ANTIBODY 2024-02-10 07:35:00 Karime Ayala [facility] HB ABO GROUPING 2024-02-10 07:35:00 Karime Ayala [facility] FREE T3 2024-02-10 07:35:00 Karime Ayala U [facility] HIV 1/2 AG-AB WITH REFLEX 2024-02-10 07:35:00 Karime Moscoso [facility] REPORT OF 2024-02-10 05:01:00 Doctor Tramaine marr, [place] [facility] INSURANCE CORRESPONDENCE 2023-03-19 05:01:00 Doc tor Unassigned, [place] [facility] ASSIGNMENT OF BENEFITS 2023-01-31 17:39:11 Docto r Unassigned, [place] [facility] POCT TEST 2023-01-31 00:00:00 López Art [facility] XR WRIST 3+ VW RIGHT 2020-10-23 14:48:47 Kiel Bagley [facility] NOTICE OF PRIVACY PRACTICES 2020-10-23 14:13:40 Doctor Unassigned, [place] [facility] CONSENT/REFUSAL FOR DIAGNOSIS AND TREATMENT 2020-10-23 14:13:22 Doctor Unassigned, [place] [facility] NOTICE OF PRIVACY PRACTICES 2020-05-14 14:57:33 Doctor Unassigned, [place] [facility] RAPID STREP SCREEN FOR GROUP A 2020-05-14 14:49:00 Keturah Boudreaux [facility] COVID-19 (ID NOW RAPID TESTING) 2020-05-14 14:49:00 Keturah Boudreaux [facility] CONSENT/REFUSAL FOR DIAGNOSIS AND TREATMENT 2020-05-14 14:22:51 Doctor Unassigned, [place] [facility] Encounters Start Date/Time End Date/Time Encounter Type Admission Type Attending [facility] Facility Care Department Encounter ID Source 2021-09-22 08:05:11 Emergency [facility] [id number] [facility] 2021-09-21 02:00:45 Emergency [facility] [id number] [facility] 2024-02-12 07:45:00 2024-02-12 10:48:18 Outpatient KARIME YO [facility] [id number] [facility] 2024-02-12 07:45:00 2024-02-12 10:48:18 Heating Fixture Tender Visit Lab, Ang-Rmchp Karime [facility]ala [facility] [employer] [facility] MATERNAL & CHILD [facility] .[id number] 350.1.13.10 4.2.7.2.686 [id number] [facility] 2024-02-12 07:45:00 2024-02-12 07:45:00 Outpatient KARIME YO [facility] [id number] [facility] 2024-02-11 00:00:00 2024-02-11 00:00:00 Telephone Karime Ayala [facility] [employer] [facility] MATERNAL & CHILD [facility] .2.840.114 350.1.13.10 4.2.7.2.686 [id number] [facility] 2024-02-11 00:00:00 2024-02-11 00:00:00 Telephone Karime Ayala [facility] [employer] [facility] & CHILD [facility] [id number] 350.1.13.10 4.2.7.2.686 [id number] [facility] 2024-02-10 13:45:00 2024-02-10 14:26:02 Initial Visit Karime Ayala [facility] [employer] [facility] MATERNAL & CHILD [facility] [id number] 350.1.13.10 4.2.7.2.686 [id number] [facility] 2024-02-10 13:45:00 2024-02-10 14:26:02 Outpatient R KARIME AYALA [facility] [id number] [facility] 2024-02-10 13:15:00 2024-02-10 13:24:27 Outpatient R KARIME AYALA [facility] [id number] [facility] 2024-02-10 00:00:00 2024-02-10 00:00:00 Orders Only Doctor Unassigned, [place] [facility] 1.2840.114 350.1.13.10 4.2.7.2.686 [id number] [facility] 2023-03-20 11:15:00 2023-03-20 11:15:00 Outpatient CHRISTOPHER CALIX CHERYAL [facility] [id number] [facility] 2023-03-19 00:00:00 2023-03-19 00:00:00 Orders Only Doctor Unassigned, [place] [facility] [id number] 350.1.13.10 4.2.7.2.686 [id number] [facility] 2023-03-14 10:00:00 2023-03-14 10:00:00 Outpatient LÓPEZ NIETO [facility] [id number] [facility] 2023-01-31 11:30:00 2023-01-31 12:09:02 Outpatient LÓPEZ NIETO [facility] [id number] [facility] 2023-01-31 11:30:00 2023-01-31 12:09:02 Office Visit López Art Shai [facility] [id number] 350.1.13.10 4.2.7.2.686 [id number] [facility] 2023-01-31 00:00:00 2023-01-31 00:00:00 Orders Only Doctor Unassigned, [place] [facility] 1.2.840.114 350.1.13.10 4.2.7.2.686 [id number] [facility] 2020-10-23 08:22:00 2020-10-23 09:18:00 Emergency Natanael [facility] [id number] 350.1.13.10 4.2.7.2.686 [id number] [facility] 2020-05-14 09:33:00 2020-05-14 11:03:00 Emergency Keturah Boudreaux [facility] 1.2.840.114 350.1.13.10 4.2.7.2.686 [id number] [facility] 2020-05-14 00:00:00 2020-05-14 00:00:00 Orders Only Doctor Unassigned, [place] [facility] 1.2.840.114 350.1.13.10 4.2.7.2.686 [id number] [facility] 2020-03-22 10:50:00 2020-03-22 10:50:00 [place] [id number] [facility] Results Test Description Test Time Test Comments Results Result Co mments Source [facility] w/o Specific [id number] 18:29:00* Test Item Value Reference Range Interpretation Comme nts POCT PH U (test code = 3254) 5 mg/dl 5-8 POCT U LEUK EST (test code = 3263) Trace Negative - Negative POCT U NIT (test code = 3262) Neg Negative - Negati ve POCT U PROT (test code = 3259) Trace Negative - Negat ama POCT U GLU (test code = 3256) Nml Negative - Negati ve POCT U KETONE (test code = 3258) None Negative - Neg ative POCT U BLD (test code = 3257) Trace Negative - Negati ve [facility] [id number] 17:56:00* Test Item Value Reference Range Interpretation Comme nts POCT PREG (test code = 1605) Negative On board controls acceptable with C Line (test code = 3574) Yes POCT PREG LOT # (test code = 3575) POCT PREG TEST DATE ( test code = 3576) [facility] [id number] 17:56:00* Test Item Value Reference Range Interpretation Comme nts POCT PREG (test code = 1605) Negative On board controls acceptable with C Line (test code = 3574) Yes POCT PREG LOT # (test code = 3575) POCT PREG TEST DATE ( test code = 3576) [facility] STREP SCREEN FOR GROUP [id number] 15:41:00* Test Item Value Reference Range Interpretation Comme nts Streptococcus pyogenes (grou p A) antigen (test code = 41321-4) Negative Negative Lab Interpretation (test cod e = 54353-1) [facility]APID TESTING[facility]2020-05-14 15:38:00* Test Item Value Reference Range Interpretation Comme nts SARS-CoV-2 Rapid ID NOW (test code = 56707-4) Not Detected Not Detected PHYLICIA (test code = PHYLICIA) ID NOW COVID-19 As say is an isothermal nucleic acid amplification test intended for the qualitative detection of nucleic acid from SARS-CoV-2 viral RNA in nasopharyngeal (BLOCKERS SKIVER) specimens. It is used under Emergency Use [...] patient testing if clinically indicated. Lab Interpretation (test code = 23599-5) Normal [facility] Notes Date/Time Note Provider Source 2024-02-11 15:18:22 /tsOHcuQrxoPvsQkc0tx gTLr7BK3ahx Qc8dehviPw201XipLiTPqBsP+dvIVz+ Gz6421-44-82X05:18:22 Patient wanted to know her results for Rubella, educated on positive results, verbalized understanding. 33722-0Yxzxvmvjx encounter FbleMB8932-18-75G30:19:06Teleph one encounter NoteTXT1.2.840.927620.1.13.104. 2.7.2.827200|[id number] ble for patient xqqt09854-6NdgtREWMGTRDORZKglbw tted C-CDA narrative text[address] CmuvNetrsduuwWbfsykbzsIREW40502 94542WWKGVZJBMERCWCNUOHFZUD2038 -03-20T15:19:061.2.840.423564.1 .72.3.15|1.2.840.794529.1.13.10 4.2.7.2.727879_[id number] [facility] 2024-02-11 13:25:33 Vvhm5gSwWzwmQWB0ZIWy i+ZifZ55MSv bu016A+3etRBYug4c+InGY/T10TBJGb vr0212-06-28I97:25:33 Shruthi Meza is a 28 year old femalePt has questions on her labs.Please call [phone] (home) 64100-7Ymgbrzoqt encounter VupsEW8413-37-75O48:25:57Teleph one encounter NoteTXT1.2.840.651787.1.13.104. 2.7.2.802636|[id number] ble for patient jieg87098-9UcdzCWYKTWMXDXJVeyoe tted C-CDA narrative [id number] Bazan [address] PhsmOyjpjxqagLbhanzfarRKBT34144 84462WTCIYPVIJXHHISISGUWOWX8231 -03-20T13:25:571.2.840.185554.1 .72.3.15|1.2.840.486265.1.13.10 4.2.7.2.727879_[id number] Eileen Alfredo [facility] 2024-02-11 08:30:02 An/86FIqUWUJI/YQNOwb 595vHgMLVlN ChdvgHfQ84V+MaDJQ9hbhE//XBfhGYO rI4423-92-50B21:30:02 Pt notified of abnormal 1 hr gtt. Pt instructions given on 3 hour GTT including fasting and length of testing. Pt verbalized understanding. Pt scheduled for 02/12/2024 at 0745. PAL MAX RN 02/11/2024 8:31 AM 41193-9Tdygirunb encounter YqigTD8746-15-81I79:31:09Teleph one encounter NoteTXT1.2.840.566267.1.13.104. 2.7.2.779785|[id number] ble for patient enci91150-7JwtmPCJLLDKQRVJOsivk tted C-CDA narrative plhf844092162Ojjthk Rodriguez RN[address] OkerVzhdrqxssGxrovpckjUBQU68690 99508AFHUDDMWGVNJZKSFCDYMUU5186 -03-20T08:31:091.2.840.593977.1 .72.3.15|1.2.840.763676.1.13.10 4.2.7.2.727879_[id number] Glenisarairina Max RN [facility] 2024-02-11 07:40:27 XtSav7zcGd4Extb3TvvG hDgOqOqfAZ0 6U2sV2OyJFmLvsO4T6uWyVFHs9vD2k/ Zz7861-10-67P43:40:27 Please call patient and set up 3 hour GTT. 16631-4Gqoftsxxx encounter SezoTK0263-46-49Y95:40:45Teleph one encounter NoteTXT1.2.840.452866.1.13.104. 2.7.2.430211|[id number] ble for patient mivh28316-6EhrpINMSRNYQIGHXhqln tted C-CDA narrative text[address] YnscHoosnfjzaInhpmlpvpYXSX52171 13056MKYJIGFLVGXXJHTHSEQIFP3705 -03-20T07:40:451.2.840.334977.1 .72.3.15|1.2.840.669743.1.13.10 4.2.7.2.727879_[id number] [facility]"
[2024-02-21 20:11] LABS: Specific Gravity > 1.030 (1.005-1.030)
[2024-02-21 20:13] LABS: Specific Gravity > 1.030 (1.005-1.030); Urine Bacteria None Seen /HPF (<20); Urine Bilirubin NEGATIVE (Negative); Urine Blood 3+ (Negative); Urine Clarity Turbid (Clear); Urine Color Light-Yellow (Yellow); Urine Culture Reflex Order NOT NEEDED; Urine Glucose NEGATIVE (Negative); Urine Ketones NEGATIVE (Negative); Urine Microscopic Reflex YN ORDER UMIC; Urine Mucus Slight /HPF (None Seen); Urine Nitrite NEGATIVE (Negative); Urine Protein TRACE (Negative); Urine RBC 21-50 /HPF (None Seen); Urine Urobilinogen 1+ (Normal); Urine WBC <5 /HPF (<5); Urine Yeast (Budding) Trace /HPF (None Seen); Urine pH 5.5 (5.0-7.0)
--- NOTE | 2024-02-21 21:07 | RAD REPORT ---
EXAM DESCRIPTION: US - Transvaginal OB - 02/21/2024 8:30 pm CLINICAL HISTORY: with vaginal bleeding COMPARISON: None. FINDINGS: The uterus is retroverted and measures 8 x 5 x 4 centimeters. A gestational sac within th e uterus endometrium not seen. 7 millimeter fluid collection is present within the cervix. There is a questionable yolk sac. No feta l pole Ovaries are normal in size and echotexture.. The right and left adnexa unremarkable No significant free fluid IMPRESSION: 7 millimeter fluid collection within the cervix. It equivocally contains a yolk sac. Thi s could represent an incomplete . A cervical ectopic can also have this appearance. Another consideration is that is very early and not yet visualized within the endometrium. This should all be correlated clinically and with serial beta HCG levels. Followup endovaginal sonogr am in 1 week is recommended
[2024-02-21 21:31] LABS: Absolute Basophils 0.1 K/uL (0-0.5); Absolute Eosinophils 0.3 K/uL (0-0.5); Absolute Lymphocytes (CBC) 3.5 K/uL (0.7-4.9); Absolute Monocytes 0.9 K/uL (0.1-1.3); Absolute Neutrophil 8.8 K/uL (1.8-8.0); Basophils % 1.1 % (0-1.3); Eosinophils % 2.4 % (0-4.4); Hematocrit 40.2 % (36.0-45.0); Hemoglobin 13.5 g/dL (12.0-15.0); Lymphocytes % 25.9 % (15.3-44.8); MCH 28.8 pg (27.0-35.0); MCHC 33.6 g/dL (32.0-36.0); MCV 85.7 fL (80-100); MPV 9.4 fL (7.6-11.3); Monocytes % 6.4 % (3.3-12.3); Neutrophils % 64.2 % (41.7-73.7); Nucleated Red Blood Cells % 0.1 % (0-0); Platelets 374 thou/uL (152-406); RBC Red Blood Cell Count 4.68 M/uL (3.86-4.86); Red Cell Distribution Width 12.9 % (12.1-15.2)
[2024-02-21] MEDS ORDERED: NA CHLORIDE 0.9% 1,000 ML ONE (21:42)
--- NOTE | 2024-02-21 22:02 | ER ---
Nurse's Notes [facility] Name: Marta Meza Age: 29 yrs Sex: Female : 1995 Arrival Date: 02/21/2024 Time: 19:40 Bed 19 Private MD: Diagnosis: Threatened ;Other hemorrhage in early Presentation: 02/20 19:48 Chief complaint: Patient states: pt reports being approx 6 weeks gestation and having as6 vaginal bleeding that started today. denies pain. Coronavirus screen: At this time, the client does not indicate any symptoms associated with coronavirus-19. Ebola Screen: No symptoms or risks identified at this time. Initial Sepsis Screen: Does the patient meet any 2 criteria? No. Patient's initial sepsis screen is negative. Does the patient have a suspected source of infection? No. Patient's initial sepsis screen is negative. Risk Assessment: Do you want to hurt yourself or someone else? Patient reports no desire to harm self or others. Onset of symptoms was February 21, 2024. 19:48 Acuity: BEE 3 as6 19:48 Method Of Arrival: Ambulatory as6 Triage Assessment: 19:47 General: Appears in no apparent distress. Behavior is calm, cooperative. Pain: Denies as6 pain. : Reports vaginal bleeding that is. 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 - Social history:: Smoking status: Patient denies any tobacco usage or history of. Screenin:40 [facility] ED Fall Risk Assessment (Adult) History of falling in the last 3 months, pf1 including since admission No falls in past 3 months (0 pts) Confusion or Disorientation No (0 pts) Intoxicated or Sedated No (0 pts) Impaired Gait No (0 pts) Mobility Assist Device Used No (0 pt) Altered Elimination No (0 pt) Score/Fall Risk Level 0 - 2 = Low Risk Oriented to surroundings, Maintained a safe environment, Educated pt \\T\\ family on fall prevention, incl call for assistance when getting out of bed, Assessed \\T\\ reinforced patient's understanding of fall precautions, Provided non-skid footwear, Hourly rounding (assess needs \\T\\ fall precautionary measures) done, Used ambulatory aids as needed (educated on \\T\\ assisted with), Used gait belt as appropriate. 20:40 Abuse screen: Denies threats or abuse. Nutritional screening: No deficits noted. pf1 Tuberculosis screening: No symptoms or risk factors identified. Assessment: 20:40 General: Appears in no apparent distress. comfortable, well groomed, well developed, pf1 Behavior is calm, cooperative, appropriate for age, quiet. 20:40 Pain: Denies pain. Neuro: No deficits noted. Level of Consciousness is awake, alert, pf1 obeys commands, Oriented to person, place, time, situation. Cardiovascular: No deficits noted. Capillary refill < 3 seconds Patient's skin is warm and dry. Respiratory: No deficits noted. Airway is patent Respiratory effort is even, unlabored, Respiratory pattern is regular, symmetrical. GI: No deficits noted. No signs and/or symptoms were reported involving the gastrointestinal system. : Reports vaginal bleeding that is and is currently 6 weeks . EENT: No deficits noted. No signs and/or symptoms were reported regarding the EENT system. 21:40 Reassessment: Patient appears in no apparent distress at this time. Patient and/or pf1 family updated on plan of care and expected duration. Pain level reassessed. Patient is alert, oriented x 3, equal unlabored respirations, skin warm/dry/pink. Vital Signs: 19:47 BP 140 / 70; Pulse 102; Resp 16 S; Temp 98(O); Pulse Ox 98% on R/A; Weight 86.18 kg as6 (R); Height 5 ft. 1 in. (R); Pain 0/10; 22:16 BP 123 / 78; Pulse 81; Resp 17; Temp 98; Pulse Ox 99% ; rv 19:47 Body Mass Index 35.90 (86.18 kg, 154.94 cm) as6 19:47 Pain Scale: Adult as6 Yury Coma Score: 22:16 Eye Response: spontaneous(4). Motor Response: obeys commands(6). Verbal Response: rv oriented(5). Total: 15. ED Course: 19:43 Patient arrived in ED. im 19:43 Berry Castellanos MD is Attending Physician. [facility] 19:46 Arm band placed on. as6 19:46 Patient has correct armband on for positive identification. pf1 19:49 Triage completed. as6 19:50 Door closed. Noise minimized. Moved to private room. pf1 19:50 Urine collected: clean catch specimen. pf1 20:32 US Transvaginal Ob In Process Unspecified. EDMS 21:20 Initial lab(s) drawn, by ED staff, sent to lab. pf1 21:21 Basic Metabolic Panel Sent. kmf 21:21 CBC with Diff Sent. kmf 21:21 Quantitative Hcg Sent. kmf 21:21 Abo/rh Typing Sent. kmf 21:22 Missed attempt(s): 22 gauge Bleeding controlled, band aid applied, catheter tip intact. kmf 21:30 Inserted saline lock: 22 gauge in right antecubital area, using aseptic technique. pf1 21:49 Basic Metabolic Panel Sent. rv 22:15 No provider procedures requiring assistance completed. IV discontinued, intact, rv bleeding controlled, No redness/swelling at site. Pressure dressing applied. 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 pf1 Administered Medications: 21:49 Drug: NS 0.9% IV 1000 ml IV at 1 bolus Per protocol; 1000 mL bolus Route: IV; Rate: 1 rv bolus; Site: left forearm; 22:16 Follow up: IV Status: Completed infusion; IV Intake: 1000ml rv Medication: 22:17 VIS not applicable for this client. rv Intake: 22:16 IV: 1000ml; Total: 1000ml. rv Outcome: 22:01 Discharge ordered by . jesus 22:17 Discharged to home ambulatory, with family, rv 22:17 Condition: good 22:17 Discharge instructions given to patient, Instructed on discharge instructions, follow up and referral plans. Demonstrated understanding of instructions, follow-up care, 22:17 Patient left the ED. rv Signatures: Dispatcher [employer] EDMA Berry Castellanos MD MD cha Vicente, Ronaldo RN RN rv Marlon Moreno RN RN asIsabela Garcia RN RN pf1 Angelica Pickett Kelsey Maroul [facility] Corrections: (The following items were deleted from the chart) 19:48 19:48 PMHx: "Borderline" diabetes; as6 as6 02/21 05:52 02/20 22:17 Patient has correct armband on for positive identification. rv pf1
--- NOTE | 2024-02-21 22:02 | EDPHYS ---
Physician Documentation [facility] Name: Marta Meza Age: 29 yrs Sex: Female : 1995 Arrival Date: 02/21/2024 Time: 19:40 Bed 19 Private MD: ED Physician Berry Castellanos HPI: 02/20 21:11 This 29 yrs old Female presents to ER via Ambulatory with complaints of jessu Vaginal Bleeding, + Preg <12wks. 21:11 The patient presents to the emergency department with vaginal bleeding. The estimated jesus gestational age is 6 weeks. course: care: at a clinic. The patient has not experienced similar symptoms in the past. 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 - Social history:: Smoking status: Patient denies any tobacco usage or history of. ROS: 21:11 Constitutional: Negative for fever, chills, and weight loss, Eyes: Negative for injury, jesus pain, redness, and discharge, ENT: Negative for injury, pain, and discharge, Neck: Negative for injury, pain, and swelling, Cardiovascular: Negative for chest pain, palpitations, and edema, Respiratory: Negative for shortness of breath, cough, wheezing, and pleuritic chest pain, Abdomen/GI: Negative for abdominal pain, nausea, vomiting, diarrhea, and constipation, Back: Negative for injury and pain, MS/Extremity: Negative for injury and deformity, Skin: Negative for injury, rash, and discoloration, Neuro: Negative for headache, weakness, numbness, tingling, and seizure, Psych: Negative for depression, anxiety, suicide ideation, homicidal ideation, and hallucinations, Allergy/Immunology: Negative for hives, rash, and allergies, Endocrine: Negative for neck swelling, polydipsia, polyuria, polyphagia, and marked weight changes, Hematologic/Lymphatic: Negative for swollen nodes, abnormal bleeding, and unusual bruising, 21:11 : Positive for Exam: 21:15 Constitutional: This is a well developed, well nourished patient who is awake, alert, jesus and in no acute distress. Head/Face: Normocephalic, atraumatic. Eyes: Pupils equal round and reactive to light, extra-ocular motions intact. Lids and lashes normal. Conjunctiva and sclera are non-icteric and not injected. Cornea within normal limits. Periorbital areas with no swelling, redness, or edema. ENT: Nares patent. No nasal discharge, no septal abnormalities noted. Tympanic membranes are normal and external auditory canals are clear. Oropharynx with no redness, swelling, or masses, exudates, or evidence of obstruction, uvula midline. Mucous membranes moist. Neck: Trachea midline, no thyromegaly or masses palpated, and no cervical lymphadenopathy. Supple, full range of motion without nuchal rigidity, or vertebral point tenderness. No Meningismus. Chest/axilla: Normal chest wall appearance and motion. Nontender with no deformity. No lesions are appreciated. Cardiovascular: Regular rate and rhythm with a normal S1 and S2. No gallops, murmurs, or rubs. Normal PMI, no JVD. No pulse deficits. Respiratory: Lungs have equal breath sounds bilaterally, clear to auscultation and percussion. No rales, rhonchi or wheezes noted. No increased work of breathing, no retractions or nasal flaring. Abdomen/GI: Soft, non-tender, with normal bowel sounds. No distension or tympany. No guarding or rebound. No evidence of tenderness throughout. Back: No spinal tenderness. No costovertebral tenderness. Full range of motion. MS/ Extremity: Pulses equal, no cyanosis. Neurovascular intact. Full, normal range of motion. Neuro: Awake and alert, GCS 15, oriented to person, place, time, and situation. Cranial nerves II-XII grossly intact. Motor strength 5/5 in all extremities. Sensory grossly intact. Cerebellar exam normal. Normal gait. Psych: Awake, alert, with orientation to person, place and time. Behavior, mood, and affect are within normal limits. 21:15 : CVA tenderness, is absent, Pelvic Exam: is not necessary for this patient, Sexual behavior: the patient is sexually active, and reports a single partner, Vital Signs: 19:47 BP 140 / 70; Pulse 102; Resp 16 S; Temp 98(O); Pulse Ox 98% on R/A; Weight 86.18 kg as6 (R); Height 5 ft. 1 in. (R); Pain 0/10; 22:16 BP 123 / 78; Pulse 81; Resp 17; Temp 98; Pulse Ox 99% ; rv 19:47 Body Mass Index 35.90 (86.18 kg, 154.94 cm) as6 19:47 Pain Scale: Adult as6 Yury Coma Score: 22:16 Eye Response: spontaneous(4). Motor Response: obeys commands(6). Verbal Response: rv oriented(5). Total: 15. MDM: 19:43 Patient medically screened. jesus 21:16 Differential diagnosis: threatened Ab, inevitable Ab, complete Ab, retained Ab, missed jesus Ab. Data reviewed: vital signs, nurses notes, lab test result(s), radiologic studies, ultrasound. Consideration of Admission/Observation Escalation of care including admission/observation considered. I considered the following discharge prescriptions or medication management in the emergency department Medications were administered in the Emergency Department. See MAR. Independent interpretation of the following test(s) in the Emergency Department Radiology Department Ultrasound: My interpretation is vag probe. 02/20 19:45 Order name: Abo/rh Typing; Complete Time: 21:54 [facility] 02/20 19:45 Order name: Basic Metabolic Panel; Complete Time: 22:03 [facility] 02/20 19:45 Order name: CBC with Diff; Complete Time: 21:36 [facility] 02/20 19:45 Order name: Test, Urine; Complete Time: 21:04 [facility] 02/20 19:45 Order name: Quantitative Hcg; Complete Time: 22:03 [facility] 02/20 19:45 Order name: Urinalysis w/ reflexes; Complete Time: 21:04 [facility] 02/20 19:45 Order name: US Transvaginal Ob; Complete Time: 21:36 [facility] 02/20 19:45 Order name: IV Saline Lock; Complete Time: 21:49 [facility] 02/20 19:45 Order name: Labs collected and sent; Complete Time: 21:49 [facility] 02/20 19:45 Order name: NPO; Complete Time: 21:09 jesus Administered Medications: 21:49 Drug: NS 0.9% IV 1000 ml IV at 1 bolus Per protocol; 1000 mL bolus Route: IV; Rate: 1 rv bolus; Site: left forearm; 22:16 Follow up: IV Status: Completed infusion; IV Intake: 1000ml rv Disposition Summary: 02/21/24 22:01 Discharge Ordered Notes: Location: Home jesus Problem: new jesus Symptoms: have improved jesus Condition: Stable jesus Diagnosis - Threatened jesus - Other hemorrhage in early jesus Followup: jesus - With: Private Physician - When: 2 - 3 days - Reason: Recheck today's complaints, Continuance of care, Re-evaluation by your physician Discharge Instructions: - Discharge Summary Sheet jesus - Care jesus - Threatened Miscarriage jesus - Vaginal Bleeding During , First Trimester jesus - First Trimester of , Tciw-fk-Unhh jesus - First Trimester of jesus - Threatened Miscarriage, Hzkd-cj-Vvxr jesus - Vaginal Bleeding During , First Trimester, Kbkt-xt-Gbyw jesus Forms: - Medication Reconciliation Form jesus - Thank You Letter jesus - Antibiotic Education jesus - Prescription Opioid Use jesus - Patient Portal Instructions jesus - Leadership Thank You Letter [facility] Signatures: Dispatcher [employer] EDBerry Mas MD MD cha Vicente, Ronaldo RN RN Marlon Brown RN RN as6 Corrections: (The following items were deleted from the chart) 19:48 19:48 PMHx: "Borderline" diabetes; as6 as6
[2024-02-21 22:03] LABS: Anion Gap 9.4 mEq/L (5.0-15.0); Potassium 3.4 mEq/L (3.5-5.1)
[2024-02-22 00:14] VITALS: BP 123/78; TEMP 98; O2SAT 99
== END 2024-02-21 22:17 | disposition home or self-care (01) ==
LOC: ER 19:40
DX: O20.0 Threatened abortion (principal); Z3A.01 Less than 8 weeks gestation of pregnancy
CPT/HCPCS: 85025; 81001; 80048; 36415; 86900; 81025; 86901; 84702; 76817; 99284; J7030

== ENCOUNTER 2025-03-28 06:04 | Emergency (ER) | payer BC, OTHER ==
--- OUTSIDE RECORDS SUMMARY | 2025-03-28 06:11 | XMS REPORT | Continuity of Care Document ---
Author Name Unknown Address [address] [facility]. [address] [place] [address] Organization [facility] [place] Address [address] [facility] [address] [place] [address] Care Team Providers Care Banana Room Cutter Name Role Phone Sean MONTENEGRO, Sade Primary Care Physician [phone] LÓPEZ RODGERS Attending Clinician Unavailable LÓPEZ RODGERS Attending Clinician Unavailable López Rodgers MD Attending Clinician [phone] Lab, Ang - Db Attending Clinician Unavailable TOD GILL Attending Clinician Unava ilable JULIA GARNER Attending Clinician Unavailable Julia Gonzales Attending Clinician [phone] Corina Elkins Attending Clinician Unavailable Dviina Dominguez MD Attending Clinician [phone] KARIME PORTER Attending Clinician Unavaila ble Lab, [facility] Attending Clinician Unavailable Karime Porter CNM Attending Clinician [phone] Michelle Sweet MD Attending Clinician [phone] AKINSIPE, ANYI C Attending Clinician Unavail able Akinsipe WHCNP, Anyi C Attending Clinician + SHELLY EM Attending Clinician Unav ailable Lab, [facility] Attending Clinician Unavailable Kenny Kumari MD, Shelly Attending Clinician + Akinsipe WHCNP, Anyi C Attending Clinician + Lida Russell MD Attending Clinician + [phone] Karime Porter CNM Attending Clinician [phone] CONNOR CUNNINGHAM Attending Clinician Unavailable Trimester, [facility] Attending Clinician Unavailable Connor Cunningham MD Attending Clinician + [phone] PAYAM FORTUNE Attending Clinician Unavailable Opal Ward MD Attending Clinician [phone] OPAL WARD Attending Clinician Unavailable OPAL WARD Attending Clinician Unavailable 3, [facility] Us Room Attending Clinician Unavaila Vivian Thayer MD Attending Clinician [phone] [facility] Attending Clinician Unavailable Ami Basilio Attending Clinician +[phone] Chuyita Pink RN Attending Clinician Unavailab Jovany Brenner MD Attending Clinician + [phone] Rodney Santos MD Attending Clinician [phone] Frances Mckenzie MD Attending Clinician [phone] FRANCES MCKENZIE Attending Clinician Unavailable SHNO COTA Attending Clinician UnavailShon Elias MD Attending Clinician [phone] JOVANY SOUZA Attending Clinician UnavailJOSELO Dobson Attending Clinician Unavailable JOSELO DRUMMOND Attending Clinician Unavailable Joselo Drummond MD Attending Clinician + [phone] Leanne Salgado MD Attending Clinician + LAUREN PINK Attending Clinician Unavailable LAUREN PINK Attending Clinician Unavailable Lauren Pink MD Attending Clinician +[phone] 1, [facility] Us Room Attending Clinician UnavailChelo Reina MD Attending Clinician +[phone] CHELO PONCE Attending Clinician Unavailable URIEL CERDA Attending Clinician URIEL Gomes Attending Clinician Cem zapata Doctor Unassigned, [place] Attending Clinician U navailCHRISTOPHER Regalado Attending Clinician UnavailCHRISTOPHER Treviño Attending Clinician UnavailNatanael Cobian MD Attending Clinician [phone] Keturah Fortune DO Attending Clinician +[phone] Toña_Tereza Attending Clinician Unavailable SHON COTA Admitting Clinician UnavailShon Elias MD Admitting Clinician + [phone] JOVANY SOUZA Admitting Clinician UnavailJovany Cuba MD Admitting Clinician [phone] Derek Admitting Clinician Unavailable Payers Payer Name Policy Type Policy Number Effective Date Expirati on Date Source [facility] [id number] 2017 00:00:00 AETNA POS/AETNA POS II [id number] 2024 00:00:00 [facility] [id number] 2024 00:00:00 BCBS 2 [id number] 2025 00:00:00 Problems Condition Name Condition Details Condition Category Status Onset Date Resolution Date Last Treatment Date Treating Clinician Comments Source Vaginal bleeding during Vaginal bleeding during Disease Active 02-22 00:00: 00 [facility] Previous delivery affecting , antepartum Previous delivery affecting , antepartum Disease Active 02-10 00:00: 00 [facility] History of hypothyroi dism History of hypothyroi dism Disease Active 02-10 00:00: 00 [facility] Obesity affecting Obesity affecting Disease Active 02-10 00:00: 00 [facility] Lipoma of neck Lipoma of neck Disease Active 3-20 00:00: 00 [facility] Rubella non-immune status, antepartum Rubella non-immune status, antepartum Disease Active 2016-11 00:00: 00 [facility] H/O: hypothyroi dism H/O: hypothyroi dism Disease [...] 2012 were both normal (3.71 and 3.74). [facility] Ectopic without intrauteri ne Ectopic without intrauteri ne Disease Resolve d 4-02 00:00: 00 2025-03-25 00:00:00 2025-03-25 09:19:56 [facility] Abnormal maternal glucose tolerance, antepartum Abnormal maternal glucose tolerance, antepartum Disease Resolve d 3-20 00:00: 00 2025-03-25 00:00:00 2025-03-25 09:20:02 [facility] Contracept ama management Contracept ama management Disease Resolve d 07-22 00:00: 00 2024-02-23 00:00:00 2024-02-23 10:41:16 [facility] Obesity (BMI 30-39.9) Obesity (BMI 30-39.9) Disease Resolve d 8 00:00: 00 2024-02-23 00:00:00 2024-02-23 10:41:11 [facility] Routine follow-up Routine follow-up Disease Resolve d 06-22 00:00: 00 2018-07-22 00:00:00 2018-07-22 16:23:54 [facility] 39 weeks gestation of 39 weeks gestation of Disease Resolve d 7 00:00: 00 2018-06-22 00:00:00 2018-06-22 11:30:49 [facility] Abnormal maternal glucose tolerance, antepartum Abnormal maternal glucose tolerance, antepartum Disease Resolve d 2016-11 00:00: 00 2018-06-22 00:00:00 2018-06-22 11:30:46 [facility] Obesity in , antepartum Obesity in , antepartum Disease Resolve d 2016-11 00:00: 00 2018-06-22 00:00:00 2018-06-22 11:30:41 [facility] Previous delivery affecting , antepartum Previous delivery affecting , antepartum Disease Resolve d 2016-11 00:00: 00 2018-06-22 00:00:00 2018-06-22 11:30:43 [facility] High-risk High-risk Disease Resolve d 06-08 00:00: 00 2018-06-22 00:00:00 2022-06-09 00:25:30 [facility] Family history of congenital anomalies Family history of congenital anomalies Disease Resolve d 06-08 00:00: 00 2018-06-22 00:00:00 2018-06-22 11:30:39 [facility] Low lying placenta, antepartum Low lying placenta, antepartum Disease Resolve d 2-22 00:00: 00 2018-06-04 00:00:00 2018-06-04 20:08:10 [facility] Fall Fall Disease Resolve d 1-03 00:00: 00 2017-12-18 00:00:00 2017-12-18 08:29:27 [facility] Immune to varicella Immune to varicella Disease Resolve d 06-22 00:00: 00 2017-10-07 00:00:00 2017-10-07 10:45:13 [facility] Rubella non-immune status, antepartum Rubella non-immune status, antepartum Disease Resolve d 06-22 00:00: 00 2017-10-07 00:00:00 2022-06-09 00:25:43 [facility] Obesity Obesity Disease Resolve d 06-08 00:00: 00 2017-10-07 00:00:00 2022-06-09 00:25:30 [facility] Other nonspecifi c finding on examinatio n of urine Other nonspecifi c finding on examinatio n of urine Disease Resolve d 06-08 00:00: 00 2017-10-07 00:00:00 2022-06-09 00:25:30 [facility] Routine infant or child health check Routine or child health check Disease Resolve d 03-02 00:00: 00 2013-07-16 00:00:00 2013-07-16 13:00:26 [facility] Need for prophylact ic vaccinatio n with measles-mu mps-rubell a (MMR) vaccine Need for prophylact ic vaccinatio n with measles-mu mps-rubell a (MMR) vaccine Disease Resolve d 06-11 00:00: 00 2013-06-22 00:00:00 2022-06-09 00:25:33 [facility] Allergies, Adverse Reactions, Alerts Allergy Name Allergy Type Status Severity Reaction(s) Onset Date Inactive Date Treating Clinician Comments Source none (Not Checked) Propensi ty to adverse reaction to drug Active 08-06 00:00: 00 Tan Suarez NO KNOWN ALLERGIE S Drug Class Active [facility] Social History Social Habit Start Date Stop Date Quantity Comments Source ASSERTION 2024-01-23 00:00:00 Not [facility] History of Occupation [facility] Alcoholic beverage intake 2025-03-25 00:00:00 2025-03-25 00:00:00 Lifetime non-drinker (finding) [facility] Alcohol intake 2024-02-10 00:00:00 2024-02-10 00:00:00 Lifetime non-drinker (finding) [facility] History of Social function 2024-02-10 00:00:00 2024-02-10 00:00:00 [facility] Tobacco use and exposure 2024-02-10 00:00:00 2024-02-10 00:00:00 Smokeless tobacco non-user [facility] Exposure to SARS-CoV-2 (event) 2023-01-21 00:00:00 2023-01-31 11:40:00 Not sure [facility] Sex Assigned At 1995 00:00:00 1995 00:00:00 [facility] Smoking Status Start Date Stop Date Source Never smoked tobacco [facility] Medications Ordered Medication Name Filled Medication Name Start Date Stop Date Current Medication? Ordering Clinician Indication Dosage Frequency Signature (SIG) Comments Components Source metoclopram luther HCl 10 mg tablet 03-25 00:00: 00 Yes [id number] 10mg Take 1 tablet by mouth every 6 (six) hours as needed for Nausea and Vomiting (N/V). [facility] cetirizine 10 mg tablet 08-06 00:00: 00 Yes 1mg [facility] cefdinir 300 mg capsule 08-06 00:00: 00 Yes 1mg [facility] Suarez methotrexat e (PF) 25 mg/mL injection 99 mg 05-04 15:45: 00 05-04 15:58 :00 No [id number] 99mg [facility] methotrexat e (PF) 25 mg/mL injection 99 mg 05-04 15:45: 00 05-04 15:58 :00 No [id number] 50mg/m2 99 mg (50 mg/m2 ?1.98 m2), Intramuscu lar, ONCE, 1 dose, On Fri05/04/24 at 1045, STAT [facility] norgestimat e-ethinyl estradioL 0.25-35 mg-mcg per tablet 05-04 00:00: 00 03-25 00:00 :00 No [id number] 1{tbl} Take 1 tablet by mouth in the morning. [facility] sodium citrate-cit anya acid (BICITRA) 500-334 mg/5 mL solution 30 mL 03-12 17:00: 00 03-12 16:13 :00 No 30mL 30 mL, Oral, ONCE, 1 dose, On Fri03/12/24 at 1200, Routine [facility] norgestimat e-ethinyl estradioL 0.25-35 mg-mcg per tablet 03-05 00:00: 00 05-04 00:00 :00 No [id number] 1{tbl} Take 1 tablet by mouth in the morning. [facility] vitamin w/FA tablet 1 tablet 02-24 14:00: 00 02-24 05:10 :34 No 1{tbl} 1 tablet, Oral, DAILY, First dose on Fri02/25/24 at 0900, Until Discontinu ed, Routine [facility] sodium citrate-cit anya acid (BICITRA) 500-334 mg/5 mL solution 30 mL 02-23 22:15: 00 02-23 22:03 :00 No 30mL 30 mL, Oral, ONCE, 1 dose, On Fri02/24/24 at 1715, Routine [facility] methotrexat e 25 mg/mL injection 50 mg 02-23 21:30: 00 02-23 22:31 :00 No 50mg 50 mg, Other, ONCE, 1 dose, On Fri02/24/24 at 1630, Routine [facility] alum-mag hydroxide-s imeth (MAG-AL PLUS) 200-200-20 mg/5 mL suspension 30 mL 02-23 21:27: 09 02-24 05:10 :34 No 30mL 30 mL, Oral, Q6HPRN, Starting on Fri02/24/24 at 1627, Until Fri02/25/24 at 0010, Routine, Indigestio n [facility] docusate (COLACE) capsule 200 mg 02-23 21:27: 09 02-24 05:10 :34 No 200mg 200 mg, Oral, QHSPRN, Starting on Fri02/24/24 at 1627, Until Fri02/25/24 at 0010, Routine, Constipati on [facility] magnesium hydroxide (MILK OF MAGNESIA) 400 mg/5 mL suspension 30 mL 02-23 21:27: 09 02-24 05:10 :34 No 30mL 30 mL, Oral, QDAILYPRN, Starting on Fri02/24/24 at 1627, Until Fri02/25/24 at 0010, Routine, Constipati on [facility] NUVARING 0.12-0.015 mg/24 hr vaginal insert 01-31 00:00: 00 03-01 00:00 :00 No [id number] 1{each} Insert 1 Each into vagina once every month. Insert vaginally and leave in place for 3 consecutiv e weeks, then remove for 1 week. [facility] ondansetron 4 mg disintegrat ing tablet 01-20 00:00: 00 Yes DISSOLVE 1 TABLET ON TONGUE EVERY 8 HOURS NEEDED FOR NAUSEA AND VOMITING [facility] albuterol 90 mcg/actuati on inhaler 01-20 00:00: 00 Yes INHALE 1 TO 2 PUFFS BY MOUTH EVERY 4 HOURS NEEDED [facility] naproxen 500 mg tablet 2019-11 00:00: 00 11-03 05:59 :00 No [id number] 500mg Take 1 tablet by mouth 2 (two) times daily with meals for 10 days. [facility] simethicone 80 mg chewable tablet 06-07 00:00: 00 01-31 00:00 :00 No 160mg Take 2 tablets by mouth after meals and at bedtime as needed for Gas. [facility] HYDROcodone -acetaminop hen 5-325 mg tablet 06-07 00:00: 00 01-31 00:00 :00 No 1{tbl} Take 1 tablet by mouth every 6 (six) hours as needed for Pain (scale 4-6) (If uncontroll ed by Ibuprofen) . [facility] docusate calcium 240 mg capsule 06-07 00:00: 00 01-31 00:00 :00 No 240mg Take 1 capsule by mouth once daily as needed for Constipati on. [facility] ibuprofen 600 mg tablet 06-07 00:00: 00 01-31 00:00 :00 No 600mg Take 1 tablet by mouth every 6 (six) hours as needed for Pain (scale 1-3) or Pain (scale 4-6) (Pain). Take with food or milk. [facility] vitamin w/FA tablet 06-07 00:00: 00 01-31 00:00 :00 No 1{tbl} Take 1 tablet by mouth daily. [facility] ferrous sulfate 325 mg (65 mg iron) tablet 06-07 00:00: 00 01-31 00:00 :00 No 325mg Take 1 tablet by mouth 2 (two) times daily. [facility] Immunizations Ordered Immunization Name Filled Immunization Name Date Status Comments Source MMR 2018-06-07 00:00:00 Completed [facility] MMR 2018-06-07 00:00:00 Completed [facility] MMR 2018-06-07 00:00:00 Completed [facility] MMR 2018-06-07 00:00:00 Completed [facility] MMR 2018-06-07 00:00:00 Completed [facility] MMR 2018-06-07 00:00:00 Completed [facility] MMR 2018-06-07 00:00:00 Completed [facility] HPV9 2018-06-06 00:00:00 Completed [facility] HPV9 2018-06-06 00:00:00 Completed [facility] HPV9 2018-06-06 00:00:00 Completed [facility] HPV9 2018-06-06 00:00:00 Completed [facility] HPV9 2018-06-06 00:00:00 Completed [facility] HPV9 2018-06-06 00:00:00 Completed [facility] HPV9 2018-06-06 00:00:00 Completed [facility] TDAP 2018-03-26 00:00:00 Completed [facility] TDAP 2018-03-26 00:00:00 Completed [facility] TDAP 2018-03-26 00:00:00 Completed [facility] TDAP 2018-03-26 00:00:00 Completed [facility] TDAP 2018-03-26 00:00:00 Completed [facility] TDAP 2018-03-26 00:00:00 Completed [facility] TDAP 2018-03-26 00:00:00 Completed [facility] TDAP 2013-09-13 00:00:00 Completed TDAP 2013-09-13 00:00:00 Completed [facility] TDAP 2013-09-13 00:00:00 Completed [facility] TDAP 2013-09-13 00:00:00 Completed [facility] TDAP 2013-09-13 00:00:00 Completed [facility] TDAP 2013-09-13 00:00:00 Completed [facility] TDAP 2013-09-13 00:00:00 Completed [facility] Influenza, split virus, trivalent, preservative (3+ Yrs) (Afluria) 2013-08-23 00:00:00 Completed [facility] Influenza Virus Vaccine (3+ yrs) 2013-08-23 00:00:00 Completed [facility] Influenza Virus Vaccine (3+ yrs) 2013-08-23 00:00:00 Completed [facility] Influenza Virus Vaccine (3+ yrs) 2013-08-23 00:00:00 Completed [facility] Influenza Virus Vaccine (3+ yrs) 2013-08-23 00:00:00 Completed [facility] Influenza Virus Vaccine (3+ yrs) 2013-08-23 00:00:00 Completed [facility] Influenza Virus Vaccine (3+ yrs) 2013-08-23 00:00:00 Completed [facility] DTAP 2007-02-16 00:00:00 Completed [facility] HPV 2007-02-16 00:00:00 Completed [facility] Meningococcal Vaccine 2007-02-16 00:00:00 Completed [facility] DTAP 2007-02-16 00:00:00 Completed [facility] HPV 2007-02-16 00:00:00 Completed [facility] Meningococcal Vaccine 2007-02-16 00:00:00 Completed [facility] DTAP 2007-02-16 00:00:00 Completed [facility] HPV 2007-02-16 00:00:00 Completed [facility] Meningococcal Vaccine 2007-02-16 00:00:00 Completed [facility] HEPATITIS A 2006-09-01 00:00:00 Completed [facility] HEPATITIS A 2006-09-01 00:00:00 Completed [facility] HEPATITIS A 2006-09-01 00:00:00 Completed [facility] HEPATITIS A 2006-02-28 00:00:00 Completed [facility] HEPATITIS A 2006-02-28 00:00:00 Completed [facility] HEPATITIS A 2006-02-28 00:00:00 Completed [facility] TDAP Unknown Completed [facility] HPV9 Unknown Completed [facility] MMR Unknown Completed [facility] Influenza Virus Vaccine (3+ yrs) Unknown Completed [facility] TDAP Unknown Completed [facility] HPV9 Unknown Completed [facility] MMR Unknown Completed [facility] Influenza Virus Vaccine (3+ yrs) Unknown Completed [facility] HPV9 Unknown Completed [facility] MMR Unknown Completed [facility] TDAP Unknown Completed [facility] Influenza Virus Vaccine (3+ yrs) Unknown Completed [facility] TDAP Unknown Completed [facility] HPV9 Unknown Completed [facility] MMR Unknown Completed [facility] Influenza Virus Vaccine (3+ yrs) Unknown Completed [facility] TDAP Unknown Completed [facility] HPV9 Unknown Completed [facility] MMR Unknown Completed [facility] Influenza Virus Vaccine (3+ yrs) Unknown Completed [facility] TDAP Unknown Completed [facility] HPV9 Unknown Completed [facility] MMR Unknown Completed [facility] Influenza Virus Vaccine (3+ yrs) Unknown Completed [facility] TDAP Unknown Completed [facility] HPV9 Unknown Completed [facility] MMR Unknown Completed [facility] Influenza Virus Vaccine (3+ yrs) Unknown Completed [facility] HPV9 Unknown Completed [facility] MMR Unknown Completed [facility] HEPATITIS A Unknown Completed [facility] DTAP Unknown Completed [facility] HPV Unknown Completed [facility] Meningococcal Vaccine Unknown Completed [facility] TDAP Unknown Completed [facility] Influenza Virus Vaccine (3+ yrs) Unknown Completed [facility] TDAP Unknown Completed [facility] HPV9 Unknown Completed [facility] MMR Unknown Completed [facility] Influenza Virus Vaccine (3+ yrs) Unknown Completed [facility] TDAP Unknown Completed [facility] HPV9 Unknown Completed [facility] MMR Unknown Completed [facility] Influenza Virus Vaccine (3+ yrs) Unknown Completed [facility] TDAP Unknown Completed [facility] HPV9 Unknown Completed [facility] MMR Unknown Completed [facility] Influenza Virus Vaccine (3+ yrs) Unknown Completed [facility] TDAP Unknown Completed [facility] HPV9 Unknown Completed [facility] MMR Unknown Completed [facility] HEPATITIS A Unknown Completed [facility] DTAP Unknown Completed [facility] HPV Unknown Completed [facility] Meningococcal Vaccine Unknown Completed [facility] Influenza Virus Vaccine (3+ yrs) Unknown Completed [facility] TDAP Unknown Completed [facility] HPV9 Unknown Completed [facility] MMR Unknown Completed [facility] Influenza Virus Vaccine (3+ yrs) Unknown Completed [facility] TDAP Unknown Completed [facility] HPV9 Unknown Completed [facility] MMR Unknown Completed [facility] Influenza Virus Vaccine (3+ yrs) Unknown Completed [facility] TDAP Unknown Completed [facility] HPV9 Unknown Completed [facility] MMR Unknown Completed [facility] Influenza Virus Vaccine (3+ yrs) Unknown Completed [facility] TDAP Unknown Completed [facility] HPV9 Unknown Completed [facility] MMR Unknown Completed [facility] Influenza Virus Vaccine (3+ yrs) Unknown Completed [facility] TDAP Unknown Completed [facility] HPV9 Unknown Completed [facility] MMR Unknown Completed [facility] Influenza Virus Vaccine (3+ yrs) Unknown Completed [facility] TDAP Unknown Completed [facility] HPV9 Unknown Completed [facility] MMR Unknown Completed [facility] Influenza Virus Vaccine (3+ yrs) Unknown Completed [facility] TDAP Unknown Completed [facility] HPV9 Unknown Completed [facility] MMR Unknown Completed [facility] Influenza Virus Vaccine (3+ yrs) Unknown Completed [facility] TDAP Unknown Completed [facility] HPV9 Unknown Completed [facility] MMR Unknown Completed [facility] Influenza Virus Vaccine (3+ yrs) Unknown Completed [facility] TDAP Unknown Completed [facility] HPV9 Unknown Completed [facility] MMR Unknown Completed [facility] Influenza Virus Vaccine (3+ yrs) Unknown Completed [facility] TDAP Unknown Completed [facility] HPV9 Unknown Completed [facility] MMR Unknown Completed [facility] Influenza Virus Vaccine (3+ yrs) Unknown Completed [facility] TDAP Unknown Completed [facility] HPV9 Unknown Completed [facility] MMR Unknown Completed [facility] Influenza Virus Vaccine (3+ yrs) Unknown Completed [facility] TDAP Unknown Completed [facility] HPV9 Unknown Completed [facility] MMR Unknown Completed [facility] Influenza Virus Vaccine (3+ yrs) Unknown Completed [facility] TDAP Unknown Completed [facility] HPV9 Unknown Completed [facility] MMR Unknown Completed [facility] Influenza Virus Vaccine (3+ yrs) Unknown Completed [facility] TDAP Unknown Completed [facility] HPV9 Unknown Completed [facility] MMR Unknown Completed [facility] Influenza Virus Vaccine (3+ yrs) Unknown Completed [facility] HPV9 Unknown Completed [facility] MMR Unknown Completed [facility] Influenza Virus Vaccine (3+ yrs) Unknown Completed [facility] HPV9 Unknown Completed [facility] MMR Unknown Completed [facility] Influenza Virus Vaccine (3+ yrs) Unknown Completed [facility] TDAP Unknown Completed [facility] HPV9 Unknown Completed [facility] MMR Unknown Completed [facility] HEPATITIS A Unknown Completed [facility] DTAP Unknown Completed [facility] HPV Unknown Completed [facility] Meningococcal Vaccine Unknown Completed [facility] TDAP Unknown Completed [facility] Influenza Virus Vaccine (3+ yrs) Unknown Completed [facility] TDAP Unknown Completed [facility] HPV9 Unknown Completed [facility] MMR Unknown Completed [facility] Influenza Virus Vaccine (3+ yrs) Unknown Completed [facility] TDAP Unknown Completed [facility] HPV9 Unknown Completed [facility] MMR Unknown Completed [facility] Influenza Virus Vaccine (3+ yrs) Unknown Completed [facility] TDAP Unknown Completed [facility] HPV9 Unknown Completed [facility] MMR Unknown Completed [facility] HEPATITIS A Unknown Completed [facility] DTAP Unknown Completed [facility] HPV Unknown Completed [facility] Meningococcal Vaccine Unknown Completed [facility] TDAP Unknown Completed [facility] Influenza Virus Vaccine (3+ yrs) Unknown Completed [facility] HPV9 Unknown Completed [facility] MMR Unknown Completed [facility] HEPATITIS A Unknown Completed [facility] DTAP Unknown Completed [facility] HPV Unknown Completed [facility] Meningococcal Vaccine Unknown Completed [facility] TDAP Unknown Completed [facility] Influenza Virus Vaccine (3+ yrs) Unknown Completed [facility] TDAP Unknown Completed [facility] HPV9 Unknown Completed [facility] MMR Unknown Completed [facility] Influenza Virus Vaccine (3+ yrs) Unknown Completed [facility] TDAP Unknown Completed [facility] HPV9 Unknown Completed [facility] MMR Unknown Completed [facility] Influenza Virus Vaccine (3+ yrs) Unknown Completed [facility] HPV9 Unknown Completed [facility] MMR Unknown Completed [facility] Influenza Virus Vaccine (3+ yrs) Unknown Completed [facility] TDAP Unknown Completed [facility] HPV9 Unknown Completed [facility] MMR Unknown Completed [facility] Influenza Virus Vaccine (3+ yrs) Unknown Completed [facility] TDAP Unknown Completed [facility] HPV9 Unknown Completed [facility] MMR Unknown Completed [facility] TDAP Unknown Completed [facility] Influenza Virus Vaccine (3+ yrs) Unknown Completed [facility] TDAP Unknown Completed [facility] HPV9 Unknown Completed [facility] MMR Unknown Completed [facility] Influenza Virus Vaccine (3+ yrs) Unknown Completed [facility] TDAP Unknown Completed [facility] HPV9 Unknown Completed [facility] MMR Unknown Completed [facility] Influenza Virus Vaccine (3+ yrs) Unknown Completed [facility] TDAP Unknown Completed [facility] HPV9 Unknown Completed [facility] MMR Unknown Completed [facility] Influenza Virus Vaccine (3+ yrs) Unknown Completed [facility] TDAP Unknown Completed [facility] HPV9 Unknown Completed [facility] MMR Unknown Completed [facility] Influenza Virus Vaccine (3+ yrs) Unknown Completed [facility] TDAP Unknown Completed [facility] HPV9 Unknown Completed [facility] MMR Unknown Completed [facility] Influenza Virus Vaccine (3+ yrs) Unknown Completed [facility] TDAP Unknown Completed [facility] HPV9 Unknown Completed [facility] MMR Unknown Completed [facility] Influenza Virus Vaccine (3+ yrs) Unknown Completed [facility] TDAP Unknown Completed [facility] HPV9 Unknown Completed [facility] MMR Unknown Completed [facility] Influenza Virus Vaccine (3+ yrs) Unknown Completed [facility] TDAP Unknown Completed [facility] HPV9 Unknown Completed [facility] MMR Unknown Completed [facility] Influenza Virus Vaccine (3+ yrs) Unknown Completed [facility] TDAP Unknown Completed [facility] HPV9 Unknown Completed [facility] MMR Unknown Completed [facility] Influenza Virus Vaccine (3+ yrs) Unknown Completed [facility] Vital Signs Vital Name Observation Time Observation Value Comments S ource Systolic blood pressure 2025-03-25 14:06:00 112 mm[Hg] [facility] Diastolic blood pressure 2025-03-25 14:06:00 74 mm[Hg] [facility] Heart rate 2025-03-25 14:06:00 86 /min [facility] Respiratory rate 2025-03-25 14:06:00 18 /min [facility] Body height 2025-03-25 14:06:00 154.9 cm [facility] Body weight 2025-03-25 14:06:00 91.173 kg [facility] BMI 2025-03-25 14:06:00 37.98 kg/m2 [facility] Systolic blood pressure 2025-03-22 14:35:00 135 mm[Hg] [facility] Diastolic blood pressure 2025-03-22 14:35:00 86 mm[Hg] [facility] Heart rate 2025-03-22 14:35:00 80 /min [facility] Body temperature 2025-03-22 14:35:00 36.72 Rowan [facility] Respiratory rate 2025-03-22 14:35:00 16 /min [facility] Body height 2025-03-22 14:35:00 154.9 cm [facility] Body weight 2025-03-22 14:35:00 90.765 kg [facility] BMI 2025-03-22 14:35:00 37.81 kg/m2 [facility] Oxygen saturation in Arterial blood by Pulse oximetry 2025-03-22 14:35:00 97 /min [facility] Systolic blood pressure 2024-05-11 15:28:00 116 mm[Hg] [facility] Diastolic blood pressure 2024-05-11 15:28:00 77 mm[Hg] [facility] Heart rate 2024-05-11 15:28:00 89 /min [facility] Body temperature 2024-05-11 15:28:00 36.28 Rowan [facility] Respiratory rate 2024-05-11 15:28:00 18 /min [facility] Body height 2024-05-11 15:28:00 152.4 cm [facility] Body weight 2024-05-11 15:28:00 93.169 kg [facility] BMI 2024-05-11 15:28:00 40.11 kg/m2 [facility] Systolic blood pressure 2024-05-04 14:29:00 124 mm[Hg] [facility] Diastolic blood pressure 2024-05-04 14:29:00 74 mm[Hg] [facility] Heart rate 2024-05-04 14:29:00 67 /min [facility] Body temperature 2024-05-04 14:29:00 36 Rowan [facility] Respiratory rate 2024-05-04 14:29:00 20 /min [facility] Body height 2024-05-04 14:29:00 152.4 cm [facility] Body weight 2024-05-04 14:29:00 92.942 kg [facility] BMI 2024-05-04 14:29:00 40.02 kg/m2 [facility] Systolic blood pressure 2024-04-06 14:35:00 126 mm[Hg] [facility] Diastolic blood pressure 2024-04-06 14:35:00 73 mm[Hg] [facility] Heart rate 2024-04-06 14:35:00 72 /min [facility] Body temperature 2024-04-06 14:35:00 35.94 Rowan [facility] Respiratory rate 2024-04-06 14:35:00 20 /min [facility] Body height 2024-04-06 14:35:00 152.4 cm [facility] Body weight 2024-04-06 14:35:00 90.629 kg [facility] BMI 2024-04-06 14:35:00 39.02 kg/m2 [facility] Oxygen saturation in Arterial blood by Pulse oximetry 2024-04-06 14:35:00 100 /min [facility] Systolic blood pressure 2024-03-12 20:30:00 99 mm[Hg] [facility] Diastolic blood pressure 2024-03-12 20:30:00 88 mm[Hg] [facility] Heart rate 2024-03-12 20:30:00 83 /min [facility] Respiratory rate 2024-03-12 20:30:00 17 /min [facility] Oxygen saturation in Arterial blood by Pulse oximetry 2024-03-12 20:30:00 100 /min [facility] Body temperature 2024-03-12 17:33:00 36.5 Rowan [facility] Body height 2024-03-12 13:03:00 154.9 cm [facility] Body weight 2024-03-12 13:03:00 91.717 kg [facility] BMI 2024-03-12 13:03:00 38.23 kg/m2 [facility] Systolic blood pressure 2024-03-12 13:12:00 115 mm[Hg] [facility] Diastolic blood pressure 2024-03-12 13:12:00 64 mm[Hg] [facility] Heart rate 2024-03-12 13:12:00 82 /min [facility] Body temperature 2024-03-12 13:12:00 36 Rowan [facility] Respiratory rate 2024-03-12 13:12:00 20 /min [facility] Oxygen saturation in Arterial blood by Pulse oximetry 2024-03-12 13:12:00 98 /min [facility] Body height 2024-03-12 13:03:00 154.9 cm [facility] Body weight 2024-03-12 13:03:00 91.717 kg [facility] BMI 2024-03-12 13:03:00 38.23 kg/m2 [facility] Systolic blood pressure 2024-03-05 13:05:00 123 mm[Hg] [facility] Diastolic blood pressure 2024-03-05 13:05:00 65 mm[Hg] [facility] Heart rate 2024-03-05 13:05:00 75 /min [facility] Body temperature 2024-03-05 13:05:00 36.5 Rowan [facility] Respiratory rate 2024-03-05 13:05:00 18 /min [facility] Body height 2024-03-05 13:05:00 154.9 cm [facility] Body weight 2024-03-05 13:05:00 91.037 kg [facility] BMI 2024-03-05 13:05:00 37.92 kg/m2 [facility] Systolic blood pressure 2024-03-01 14:32:00 113 mm[Hg] [facility] Diastolic blood pressure 2024-03-01 14:32:00 64 mm[Hg] [facility] Heart rate 2024-03-01 14:32:00 77 /min [facility] Body temperature 2024-03-01 14:32:00 35.67 Rowan [facility] Respiratory rate 2024-03-01 14:32:00 16 /min [facility] Body height 2024-03-01 14:32:00 154.9 cm [facility] Body weight 2024-03-01 14:32:00 91.445 kg [facility] BMI 2024-03-01 14:32:00 38.09 kg/m2 [facility] Systolic blood pressure 2024-02-27 15:34:00 111 mm[Hg] [facility] Diastolic blood pressure 2024-02-27 15:34:00 66 mm[Hg] [facility] Heart rate 2024-02-27 15:34:00 71 /min [facility] Body temperature 2024-02-27 15:34:00 36.06 Rowan [facility] Body height 2024-02-27 15:34:00 154.9 cm [facility] Body weight 2024-02-27 15:34:00 90.674 kg [facility] BMI 2024-02-27 15:34:00 37.77 kg/m2 [facility] Systolic blood pressure 2024-02-25 00:45:00 113 mm[Hg] [facility] Diastolic blood pressure 2024-02-25 00:45:00 66 mm[Hg] [facility] Heart rate 2024-02-25 00:45:00 76 /min [facility] Respiratory rate 2024-02-25 00:45:00 18 /min [facility] Oxygen saturation in Arterial blood by Pulse oximetry 2024-02-25 00:45:00 99 /min [facility] Body temperature 2024-02-25 00:00:00 36.67 Rowan [facility] Body height 2024-02-24 20:37:00 154.9 cm [facility] Body weight 2024-02-24 20:37:00 90.719 kg [facility] BMI 2024-02-24 20:37:00 37.79 kg/m2 [facility] Systolic blood pressure 2024-02-24 23:30:00 115 mm[Hg] [facility] Diastolic blood pressure 2024-02-24 23:30:00 66 mm[Hg] [facility] Heart rate 2024-02-24 23:30:00 67 /min [facility] Respiratory rate 2024-02-24 23:30:00 20 /min [facility] Oxygen saturation in Arterial blood by Pulse oximetry 2024-02-24 23:30:00 98 /min [facility] Body temperature 2024-02-24 23:15:00 36.72 Rowan [facility] Body height 2024-02-24 20:37:00 154.9 cm [facility] Body weight 2024-02-24 20:37:00 90.719 kg [facility] BMI 2024-02-24 20:37:00 37.79 kg/m2 [facility] Systolic blood pressure 2024-02-24 15:38:00 121 mm[Hg] [facility] Diastolic blood pressure 2024-02-24 15:38:00 71 mm[Hg] [facility] Heart rate 2024-02-24 15:38:00 88 /min [facility] Body temperature 2024-02-24 15:38:00 36.11 Rowan [facility] Respiratory rate 2024-02-24 15:38:00 21 /min [facility] Body height 2024-02-24 15:38:00 154.9 cm [facility] Body weight 2024-02-24 15:38:00 90.538 kg [facility] BMI 2024-02-24 15:38:00 37.71 kg/m2 [facility] Systolic blood pressure 2024-02-23 15:27:00 107 mm[Hg] [facility] Diastolic blood pressure 2024-02-23 15:27:00 73 mm[Hg] [facility] Heart rate 2024-02-23 15:27:00 79 /min [facility] Body temperature 2024-02-23 15:27:00 36.28 Rowan [facility] Respiratory rate 2024-02-23 15:27:00 17 /min [facility] Body height 2024-02-23 15:27:00 154.9 cm [facility] Body weight 2024-02-23 15:27:00 89.404 kg [facility] BMI 2024-02-23 15:27:00 37.24 kg/m2 [facility] Systolic blood pressure 2024-02-10 18:37:00 130 mm[Hg] [facility] Diastolic blood pressure 2024-02-10 18:37:00 87 mm[Hg] [facility] Heart rate 2024-02-10 18:37:00 91 /min [facility] Body temperature 2024-02-10 18:35:00 36.72 Rowan [facility] Respiratory rate 2024-02-10 18:35:00 20 /min [facility] Body height 2024-02-10 18:35:00 154.9 cm [facility] Body weight 2024-02-10 18:35:00 89.359 kg [facility] BMI 2024-02-10 18:35:00 37.22 kg/m2 [facility] Systolic blood pressure 2023-01-31 17:57:00 121 mm[Hg] [facility] Diastolic blood pressure 2023-01-31 17:57:00 79 mm[Hg] [facility] Heart rate 2023-01-31 17:57:00 82 /min [facility] Body temperature 2023-01-31 17:57:00 36.44 Rowan [facility] Respiratory rate 2023-01-31 17:57:00 18 /min [facility] Body height 2023-01-31 17:57:00 154.9 cm [facility] Body weight 2023-01-31 17:57:00 86.41 kg [facility] BMI 2023-01-31 17:57:00 35.99 kg/m2 [facility] Systolic blood pressure 2020-10-23 14:19:00 121 mm[Hg] [facility] Diastolic blood pressure 2020-10-23 14:19:00 75 mm[Hg] [facility] Heart rate 2020-10-23 14:19:00 77 /min [facility] Body temperature 2020-10-23 14:19:00 37.17 Rowan [facility] Respiratory rate 2020-10-23 14:19:00 16 /min [facility] Body height 2020-10-23 14:19:00 154.9 cm [facility] Body weight 2020-10-23 14:19:00 87.998 kg [facility] BMI 2020-10-23 14:19:00 36.66 kg/m2 [facility] Oxygen saturation in Arterial blood by Pulse oximetry 2020-10-23 14:19:00 97 /min [facility] Systolic blood pressure 2020-05-14 14:31:00 130 mm[Hg] [facility] Diastolic blood pressure 2020-05-14 14:31:00 85 mm[Hg] [facility] Heart rate 2020-05-14 14:31:00 92 /min [facility] Body temperature 2020-05-14 14:31:00 37.06 Rowan [facility] Respiratory rate 2020-05-14 14:31:00 18 /min [facility] Body weight 2020-05-14 14:31:00 90.719 kg [facility] BMI 2020-05-14 14:31:00 37.79 kg/m2 [facility] Oxygen saturation in Arterial blood by Pulse oximetry 2020-05-14 14:31:00 100 /min [facility] Weight Measured 2025-03-09 16:58:00 202.00 pounds Tan Suarez Height Measured 2025-03-09 16:58:00 61.00 inches Tan F Erick Body Temperature 2025-03-09 16:58:00 98.10 degrees Tan F Erick Heart Rate 2025-03-09 16:58:00 69.00 /min Carmina en F Erick Respiratory Rate 2025-03-09 16:58:00 18.00 /min Tan F Erick BP Systolic 2025-03-09 16:58:00 116 mm[Hg] Step hen F Erick BP Diastolic 2025-03-09 16:58:00 63 mm[Hg] Paulo phen F Erick BP Systolic 2024-12-20 10:54:00 110 mm[Hg] Step hen F Erick BP Diastolic 2024-12-20 10:54:00 80 mm[Hg] Paulo phen F Erick Weight Measured 2024-12-20 10:54:00 204.00 pounds Tan Suarez Height Measured 2024-12-20 10:54:00 61.00 inches Tan Suarez Body Temperature 2024-12-20 10:54:00 97.00 degrees Tan Suarez Heart Rate 2024-12-20 10:54:00 7.00 /min Carmina en F Erick Respiratory Rate 2024-12-20 10:54:00 18.00 /min Tan Suarez BP Systolic 2024-08-06 07:48:00 130 mm[Hg] Step hen Chad Suarez BP Diastolic 2024-08-06 07:48:00 82 mm[Hg] Paulo phen Chad Suarez Weight Measured 2024-08-06 07:48:00 204.00 pounds Tan Suarez Height Measured 2024-08-06 07:48:00 61.50 inches Tan Suarez Body Temperature 2024-08-06 07:48:00 97.90 degrees Tan Suarez Heart Rate 2024-08-06 07:48:00 75.00 /min Carmina en F Erick Respiratory Rate 2024-08-06 07:48:00 18.00 /min Tan Suarez Procedures Procedure Date / Time Performed Performing Clinician Source POCT TEST 2025-03-25 00:00:00 López Rodgers [facility] TOTAL BETA HCG ASSAY 2025-03-22 15:18:00 Jennifer Garner [facility] CBC WITHOUT DIFF 2025-03-22 15:18:00 Julia Garner Un [facility] HB ABO GROUPING 2025-03-22 15:18:00 Julia Garner [facility] POCT TEST 2025-03-22 14:43:00 Julia Garner [facility] URINALYSIS 2025-03-22 14:40:00 Julia Garner [facility] TOTAL BETA HCG ASSAY 2024-07-14 19:58:00 Divina Dominguez [facility] TOTAL BETA HCG ASSAY 2024-05-17 18:42:00 Kaycee Mayberry [facility] TOTAL BETA HCG ASSAY 2024-05-10 18:48:00 Paul Jordan [facility] POCT TEST 2024-05-04 14:52:00 Tyson Flowers [facility] COMP. METABOLIC PANEL ([id number]) 2024-05-04 14:49:00 Paul Jordan [facility] TOTAL BETA HCG ASSAY 2024-05-04 14:49:00 Paul Jordan [facility] FIRST TRIMESTER ULTRASOUND 2024-05-04 13:54:00 Chelo Ponce [facility] TOTAL BETA HCG ASSAY 2024-04-13 14:59:00 Thien Santos Y [facility] EXAM UNDER ANESTHESIA 2024-03-12 16:00:00 Rafa Souza [facility] COMP. METABOLIC PANEL ([id number]) 2024-03-12 13:35:00 Reyna [facility] CBC WITH DIFF 2024-03-12 13:35:00 [facility] HB ABO GROUPING 2024-03-12 13:35:00 Eyde [facility]oto, [facility] COMP. METABOLIC PANEL ([id number]) 2024-03-12 13:35:00 Eyada [facility] CBC WITH DIFF 2024-03-12 13:35:00 Eyde soto, [facility] HB ABO GROUPING 2024-03-12 13:35:00 Reyna [facility] FIRST TRIMESTER ULTRASOUND 2024-03-08 14:34:36 Chelo Ponce [facility] TOTAL BETA HCG ASSAY 2024-03-05 13:18:00 Thien Santos [facility] TOTAL BETA HCG ASSAY 2024-03-01 14:59:00 Geena Mitchell [facility] POCT TEST 2024-03-01 14:35:00 Frances Mckenzie [facility] FIRST TRIMESTER ULTRASOUND 2024-03-01 14:12:56 Chelo Ponce [facility] EXAM UNDER ANESTHESIA 2024-02-24 21:51:00 Rafa Souza [facility] ECTOPIC REMOVAL 2024-02-24 21:51:00 Jovany Souza [facility] COMP. METABOLIC PANEL ([id number]) 2024-02-24 19:57:00 Leanne Salgado [facility] CBC WITH DIFF 2024-02-24 19:57:00 [facility] 2024-02-24 19:57:00 [facility] COMP. METABOLIC PANEL ([id number]) 2024-02-24 19:57:00 Leanne Salgado [facility] CBC WITH DIFF 2024-02-24 19:57:00 [facility] 2024-02-24 19:57:00 Kenton gloria [facility] FIRST TRIMESTER ULTRASOUND 2024-02-24 18:34:15 Chelo Ponce [facility] TOTAL BETA HCG ASSAY 2024-02-23 15:57:00 Ruy Meadows [facility] PAP SMEAR-LIQUID BASED-CP 2024-02-10 21:31:00 Karime Moscoso [facility] POCT URINALYSIS W/O SPECIFIC GRAVITY 2024-02-10 18:29:00 Karime Porter [facility] POCT TEST 2024-02-10 18:28:00 Sarah Porter [facility] GLUCOSE 1 HOUR POST PRANDIAL 2024-02-10 07:35:00 Karime Porter [facility] FREE T4 2024-02-10 07:35:00 Karime Porter [facility] THYROID STIMULATING HORMONE 2024-02-10 07:35:00 Karime Porter [facility] CBC WITH DIFF 2024-02-10 07:35:00 Karime Porter [facility] HEPATITIS B SURFACE ANTIGEN 2024-02-10 07:35:00 Karime Porter [facility] HCV ANTIBODY 2024-02-10 07:35:00 Karime Porter [facility] HB ABO GROUPING 2024-02-10 07:35:00 Karime Porter [facility] FREE T3 2024-02-10 07:35:00 Karime Porter [facility] HIV 1/2 AG-AB WITH REFLEX 2024-02-10 07:35:00 Karime Moscoso [facility] REPORT OF 2024-02-10 05:01:00 Doctor Hood nassigned, [place] [facility] INSURANCE CORRESPONDENCE 2023-03-19 05:01:00 Doc tor Unassigned, [place] [facility] ASSIGNMENT OF BENEFITS 2023-01-31 17:39:11 Docto r Unassigned, [place] [facility] POCT TEST 2023-01-31 00:00:00 López Rodgers [facility] XR WRIST 3+ VW RIGHT 2020-10-23 14:48:47 Kiel Bagley [facility] NOTICE OF PRIVACY PRACTICES 2020-10-23 14:13:40 Doctor Unassigned, [place] [facility] CONSENT/REFUSAL FOR DIAGNOSIS AND TREATMENT 2020-10-23 14:13:22 Doctor Unassigned, [place] [facility] NOTICE OF PRIVACY PRACTICES 2020-05-14 14:57:33 Doctor Unassigned, [place] [facility] RAPID STREP SCREEN FOR GROUP A 2020-05-14 14:49:00 Keturah Fortune [facility] COVID-19 (ID NOW RAPID TESTING) 2020-05-14 14:49:00 Keturah Fortune [facility] CONSENT/REFUSAL FOR DIAGNOSIS AND TREATMENT 2020-05-14 14:22:51 Doctor Unassigned, [place] [facility] Encounters Start Date/Time End Date/Time Encounter Type Admission Type Attending Clinicians Care Facility Care Department Encounter ID Source 2021-09-22 08:05:11 Emergency [facility] [id number] [facility] 2021-09-21 02:00:45 Emergency [facility] [id number] [facility] 2025-03-26 00:00:00 2025-03-26 07:36:02 Case Management López Rodgers [facility] 1.840.114 350.1.13.10 4.2.7.2.686 [id number] [facility] 2025-03-25 13:30:00 2025-03-25 13:45:00 Associate Consulting Engineer Visit Lab, Ang - López [facility], Ang - Db [facility] 1.840.114 350.1.13.10 4.2.7.2.686 [id number] [facility] 2025-03-25 09:00:00 2025-03-25 09:19:04 Outpatient R LÓPEZ RODGERS VIEN [facility] [id number] [facility] 2025-03-25 09:00:00 2025-03-25 09:19:04 Initial Visit López Rodgers [facility] 1.84.114 350.1.13.10 4.2.7.2.686 [id number] [facility] 2025-03-22 13:30:00 2025-03-22 13:30:00 Outpatient TOD GILL [id number] Tory Hooker 2025-03-22 09:38:00 2025-03-22 12:32:00 Emergency X JULIA GARNER [facility] ERT [id number] [facility] 2025-03-22 09:38:00 2025-03-22 12:32:00 Emergency Julia Garner [facility] 1.84.114 350.1.13.10 4.2.7.2.686 [id number] [facility] 2025-03-09 17:05:50 2025-03-09 17:05:50 Outpatient SFA S[facility] [id number] Tan Suarez 2025-03-09 00:00:00 2025-03-09 00:00:00 Outpatient Visit [facility] [id number] Tan Suarez 2018-05-20 00:00:00 2025-01-08 03:16:16 Orders Only Corina Elkins Rosa M [facility] ORACLE MANUFACTURING CONSULTANT [facility] MATERNAL & CHILD [facility] 1.2.840.114 350.1.13.10 4.2.7.2.686 [id number] [facility] 2024-12-20 10:21:28 2024-12-20 10:21:28 Outpatient S[facility] [id number] Tan Suarez 2024-12-20 00:00:00 2024-12-20 00:00:00 Outpatient Visit [facility] [id number] Tan Suarez 2024-12-08 09:45:17 2024-12-08 09:45:17 Outpatient S[facility] [id number] Tan Suarez 2024-08-06 07:47:12 2024-08-06 07:47:12 Outpatient S[facility] [id number] Tan Suarez 2024-08-06 00:00:00 2024-08-06 00:00:00 Outpatient Visit [facility] [id number] Tan Suarez 2024-07-29 00:00:00 2024-07-29 09:42:37 Case Management Divina Dominguez [facility] ..840.114 350.1.13.10 4.2.7.2.686 [id number] [facility] 2024-07-14 14:45:00 2024-07-14 14:58:35 Outpatient KARIME YO [facility] [id number] [facility] 2024-07-14 14:45:00 2024-07-14 14:58:35 Associate Consulting Engineer Visit Lab, Karime Alexander, [facility] ORACLE MANUFACTURING CONSULTANT [facility] & CHILD [facility] 1.2.840.114 350.1.13.10 4.2.7.2.686 [id number] [facility] 2024-07-12 00:00:00 2024-07-12 12:09:04 Case Management Divina Dominguez [facility] 1.2.840.114 350.1.13.10 4.2.7.2.686 [id number] [facility] 2024-07-06 07:15:00 2024-07-06 07:30:00 Associate Consulting Engineer Visit Lab, Karime Alexander, [facility] 1.2.840.114 350.1.13.10 4.2.7.2.686 [id number] [facility] 2024-07-06 07:15:00 2024-07-06 07:16:41 Outpatient KARIME YO [facility] [id number] [facility] 2024-07-05 00:00:00 2024-07-05 08:45:37 Telephone Michelle Sweet [facility] 1.2.840.114 350.1.13.10 4.2.7.2.686 [id number] [facility] 2024-06-28 13:15:00 2024-06-28 13:49:04 Outpatient ANYI BREWER [facility] [id number] [facility] 2024-06-28 13:15:00 2024-06-28 13:49:04 Associate Consulting Engineer Visit Lab, Anyi Zayas, [facility] 1.840.114 350.1.13.10 4.2.7.2.686 [id number] 107 [id number] [facility] 2024-06-22 09:15:00 2024-06-22 09:48:15 Outpatient R MAYBERRY JAYE Janeen BRAVO [facility] [id number] [facility] 2024-06-22 09:15:00 2024-06-22 09:48:15 Associate Consulting Engineer Visit Lab, Ang-Rmchtereza Kenny Chahalnohemi janeen [facility] ORACLE MANUFACTURING CONSULTANT [facility] 1.840.114 350.1.13.10 4.2.7.2.686 [id number] 107 [id number] [facility] 2024-06-14 13:15:00 2024-06-14 13:38:52 Outpatient R ANYI MEADOWS [facility] [id number] [facility] 2024-06-14 13:15:00 2024-06-14 13:30:00 Associate Consulting Engineer Visit Lab, Anyi Zayas [facility] 1.840.114 350.1.13.10 4.2.7.2.686 [id number] [facility] 2024-06-07 08:45:00 2024-06-07 08:46:20 Outpatient R ANYI MEADOWS [facility] [id number] [facility] 2024-06-07 08:45:00 2024-06-07 08:46:20 Associate Consulting Engineer Visit Lab, Anyi Zayas [facility] 1..840.114 350.1.13.10 4.2.7.2.686 [id number] 107 [id number] [facility] 2024-06-02 00:00:00 2024-06-02 12:42:01 Telephone Lida Russell [facility] 1.0.114 350.1.13.10 4.2.7.2.686 [id number] [facility] 2024-06-02 08:45:00 2024-06-02 08:45:00 Outpatient KARIME YO [facility] [id number] [facility] 2024-05-31 08:45:00 2024-05-31 08:45:00 Outpatient R ANYI MEADOWS [facility] [id number] [facility] 2024-05-28 00:00:00 2024-05-28 10:18:09 Telephone Anyi Meadows [facility] ORACLE MANUFACTURING CONSULTANT [facility] & CHILD [facility] 1.840.114 350.1.13.10 4.2.7.2.686 [id number] 107 [id number] [facility] 2024-05-25 08:45:00 2024-05-25 09:16:08 [facility] [id number] [facility] 2024-05-25 08:45:00 2024-05-25 09:00:00 Associate Consulting Engineer Visit Lab, [facility] Karime Porter [facility] ORACLE MANUFACTURING CONSULTANT [facility] & CHILD [facility] 1.840.114 350.1.13.10 4.2.7.2.686 [id number] 107 [id number] [facility] 2024-05-18 08:00:00 2024-05-18 09:20:32 Outpatient CONNOR GRIDER [facility] [id number] [facility] 2024-05-18 08:00:00 2024-05-18 09:20:32 Telemedici ne Visit Tr[facility] Connor Cunningham L [facility] 1.0.114 350.1.13.10 4.2.7.2.686 [id number] 113 [id number] [facility] 2024-05-17 13:45:00 2024-05-17 13:45:00 Associate Consulting Engineer Visit Lab, [facility] ORACLE MANUFACTURING CONSULTANT [facility] & CHILD [facility] 1..840.114 350.1.13.10 4.2.7.2.686 [id number] 107 [id number] [facility] 2024-05-17 13:45:00 2024-05-17 13:42:15 Outpatient KARIME YO [facility] [id number] [facility] 2024-05-11 10:20:00 2024-05-11 11:24:09 Outpatient PAYAM NICOLE [facility] [id number] [facility] 2024-05-11 10:20:00 2024-05-11 11:24:09 Routine Visit Trimester, [facility] Payam Fortune [facility] 1..840.114 350.1.13.10 4.2.7.2.686 [id number] [facility] 2024-05-10 13:45:00 2024-05-10 13:53:13 Outpatient KARIME YO [facility] [id number] [facility] 2024-05-10 13:45:00 2024-05-10 13:53:13 Associate Consulting Engineer Visit Lab, [facility] ORACLE MANUFACTURING CONSULTANT [facility] MATERNAL & CHILD [facility] 1..840.114 350.1.13.10 4.2.7.2.686 [id number] 107 [id number] [facility] 2024-05-07 13:45:00 2024-05-07 13:45:22 Outpatient KARIME YO [facility] [id number] [facility] 2024-05-07 13:45:00 2024-05-07 13:45:22 Associate Consulting Engineer Visit Lab, [facility] AkinsiAnyi strauss Brenda A [facility] ORACLE MANUFACTURING CONSULTANT [facility] MATERNAL & CHILD [facility] 1.840.114 350.1.13.10 4.2.7.2.686 [id number] 107 [id number] [facility] 2024-05-04 10:00:00 2024-05-04 11:07:17 Routine Visit Trimester, [facility] 1.2840.114 350.1.13.10 4.2.7.2.686 [id number] [facility] 2024-05-04 08:45:00 2024-05-04 09:22:48 Outpatient P [facility] [id number] [facility] 2024-05-04 08:45:00 2024-05-04 09:22:48 Associate Consulting Engineer Visit 3, [facility] Us Room [facility] 1.840.114 350.1.13.10 4.2.7.2.686 [id number] [facility] 2024-04-28 00:00:00 2024-04-28 15:45:06 Case Management Vivian Alejo [facility] 1.840.114 350.1.13.10 4.2.7.2.686 [id number] [facility] 2024-04-20 10:30:00 2024-04-20 10:38:40 Outpatient R ANYI MEADOWS [facility] [id number] [facility] 2024-04-20 10:30:00 2024-04-20 10:38:40 Associate Consulting Engineer Visit Lab, [facility] Anyi Meadows [facility] ORACLE MANUFACTURING CONSULTANT [facility] MATERNAL & CHILD [facility] 1.2840.114 350.1.13.10 4.2.7.2.686 [id number] [facility] 2024-04-13 10:15:00 2024-04-13 10:15:00 Associate Consulting Engineer Visit Lab, [facility] Anyi Meadows [facility] ORACLE MANUFACTURING CONSULTANT [facility] MATERNAL & [facility] 1.2.840.114 350.1.13.10 4.2.7.2.686 [id number] 107 [id number] [facility] 2024-04-13 10:15:00 2024-04-13 09:59:05 Outpatient R ANYI MEADOWS [facility] [id number] [facility] 2024-04-06 09:40:00 2024-04-06 10:02:45 Outpatient R PAYAM FORTUNE [facility] [id number] [facility] 2024-04-06 09:40:00 2024-04-06 10:02:45 Routine Visit Trimester, [facility] 1.840.114 350.1.13.10 4.2.7.2.686 [id number] [facility] 2024-04-06 09:15:00 2024-04-06 09:30:00 Associate Consulting Engineer Visit [facility] 1.2.840.114 350.1.13.10 4.2.7.2.686 [id number] [facility] 2024-04-01 00:00:00 2024-04-01 15:40:17 Telephone Ami Espinoza [facility] 1.2.840.114 350.1.13.10 4.2.7.2.686 [id number] [facility] 2024-03-31 00:00:00 2024-03-31 15:42:43 Telephone Vivian Alejo [facility] 1.2840.114 350.1.13.10 4.2.7.2.686 [id number] [facility] 2024-03-30 10:30:00 2024-03-30 10:30:00 Outpatient R ANYI MEADOWS [facility] [id number] [facility] 2024-03-29 00:00:00 2024-03-29 13:33:42 Nurse Triage Chuyita Pink [facility] 1.2840.114 350.1.13.10 4.2.7.2.686 [id number] [facility] 2024-03-23 10:30:00 2024-03-23 10:45:00 Associate Consulting Engineer Visit Margy Lynn Damilola C [facility] ORACLE MANUFACTURING CONSULTANT [facility] MATERNAL & CHILD [facility] 1.2.840.114 350.1.13.10 4.2.7.2.686 [id number] [facility] 2024-03-23 10:30:00 2024-03-23 10:44:41 Outpatient R ANYI MEADOWS [facility] [id number] [facility] 2024-03-19 13:00:00 2024-03-19 13:00:00 Outpatient R [facility] [id number] [facility] 2024-03-18 00:00:00 2024-03-18 00:00:00 Telephone Jovany Souza [facility] 1.2840.114 350.1.13.10 4.2.7.2.686 [id number] [facility] 2024-03-17 00:00:00 2024-03-17 00:00:00 Case Management oRdney Santos Y [facility] 1.2840.114 350.1.13.10 4.2.7.2.686 [id number] [facility] 2024-03-16 11:15:00 2024-03-16 11:30:00 Associate Consulting Engineer Visit [facility] Frances Mckenzie [facility] 1.20.114 350.1.13.10 4.2.7.2.686 [id number] [facility] 2024-03-16 11:15:00 2024-03-16 11:15:00 Outpatient R NARAYANFRANCES [facility] [id number] [facility] 2024-03-12 07:58:00 2024-03-12 16:05:00 Outpatient P DELGADO [facility] DARIA [id number] [facility] 2024-03-12 07:58:00 2024-03-12 16:05:00 Hospital Encounter CotaShon [facility] 1.2840.114 350.1.13.10 4.2.7.2.686 [id number] [facility] 2024-03-12 13:00:00 2024-03-12 13:00:00 Outpatient R [facility] [id number] [facility] 2024-03-12 07:10:00 2024-03-12 08:38:00 Surgery Jovany Souza [facility] 1.2840.114 350.1.13.10 4.2.7.2.686 [id number] [facility] 2024-03-11 08:45:00 2024-03-11 09:00:00 Associate Consulting Engineer Visit [facility] Jovany Souza [facility] 1.2.114 350.1.13.10 4.2.7.2.686 [id number] [facility] 2024-03-11 08:45:00 2024-03-11 08:45:00 Outpatient R JOVANY SOUZA [facility] [id number] [facility] 2024-03-08 10:00:00 2024-03-08 10:15:00 Associate Consulting Engineer [facility] 1.840.114 350.1.13.10 4.2.7.2.686 [id number] [facility] 2024-03-08 08:30:00 2024-03-08 09:22:36 Outpatient JOSELO TRIMBLE SHANNON [facility] [id number] [facility] 2024-03-08 08:30:00 2024-03-08 09:22:36 Associate Consulting Engineer Visit 3, [facility] Us Room Payam Fortune Shannon M [facility] 1.840.114 350.1.13.10 4.2.7.2.686 [id number] [facility] 2024-03-08 00:00:00 2024-03-08 00:00:00 Case Management Leanne Salgado [facility] 1.840.114 350.1.13.10 4.2.7.2.686 [id number] [facility] 2024-03-05 08:00:00 2024-03-05 10:46:09 Outpatient LAUREN [facility] [id number] [facility] 2024-03-05 08:00:00 2024-03-05 10:46:09 Routine Visit Trimester, [facility] Res-1st Joesph Lauren [facility] 1.840.114 350.1.13.10 4.2.7.2.686 [id number] [facility] 2024-03-05 00:00:00 2024-03-05 00:00:00 Case Management Rodney Santos [facility] 1.840.114 350.1.13.10 4.2.7.2.686 [id number] [facility] 2024-03-01 10:20:00 2024-03-01 12:30:24 Outpatient JOSELO [facility] [id number] [facility] 2024-03-01 10:20:00 2024-03-01 12:30:24 Routine Visit Tr[facility] Joselo Drummond [facility] 1.2.840.114 350.1.13.10 4.2.7.2.686 [id number] [facility] 2024-03-01 09:00:00 2024-03-01 09:11:59 Associate Consulting Engineer Visit 1, [facility] Us Room Joselo Drummond [facility] 1.2840.114 350.1.13.10 4.2.7.2.686 [id number] [facility] 2024-02-27 10:40:00 2024-02-27 11:15:19 Outpatient PAYAM NICOLE [facility] [id number] [facility] 2024-02-27 10:40:00 2024-02-27 11:15:19 Routine Visit Trimester, [facility] 1.2840.114 350.1.13.10 4.2.7.2.686 [id number] [facility] 2024-02-24 13:31:00 2024-02-24 21:50:00 Outpatient P JOVANY SOUZA [facility] DARIA [id number] [facility] 2024-02-24 13:31:00 2024-02-24 21:50:00 [facility] 1.2.840.114 350.1.13.10 4.2.7.2.686 [id number] [facility] 2024-02-24 17:05:00 2024-02-24 18:33:00 [facility] 1.2.840.114 350.1.13.10 4.2.7.2.686 [id number] [facility] 2024-02-24 15:15:00 2024-02-24 15:15:00 Associate Consulting Engineer Visit 1, [facility] 1.0.114 350.1.13.10 4.2.7.2.686 [id number] [facility] 2024-02-24 10:40:00 2024-02-24 11:57:39 Outpatient R CHELO PONCE [facility] [id number] [facility] 2024-02-24 10:40:00 2024-02-24 11:57:39 Routine Visit Trimester, [facility] 1.0.114 350.1.13.10 4.2.7.2.686 [id number] [facility] 2024-02-23 10:15:00 2024-02-23 10:57:50 Outpatient R ANYI MEADOWS [facility] [id number] [facility] 2024-02-23 10:15:00 2024-02-23 10:57:50 Routine Visit Anyi Meadows [facility] ORACLE MANUFACTURING CONSULTANT [facility] MATERNAL & CHILD [facility] 1.840.114 350.1.13.10 4.2.7.2.686 [id number] [facility] 2024-02-12 07:45:00 2024-02-12 10:48:18 Outpatient R KARIME PORTER [facility] [id number] [facility] 2024-02-12 07:45:00 2024-02-12 10:48:18 Outpatient R KARIME PORTER [facility] [id number] [facility] 2024-02-12 07:45:00 2024-02-12 10:48:18 Associate Consulting Engineer Visit Lab, [facility] ORACLE MANUFACTURING CONSULTANT [facility] & CHILD [facility] 1.2.840.114 350.1.13.10 4.2.7.2.686 [id number] 107 [id number] [facility] 2024-02-12 07:45:00 2024-02-12 07:45:00 Outpatient R KARIME PORTER [facility] [id number] [facility] 2024-02-11 00:00:00 2024-02-11 00:00:00 Telephone Karime Porter [facility] ORACLE MANUFACTURING CONSULTANT [facility] & CHILD [facility] 1.2.840.114 350.1.13.10 4.2.7.2.686 [id number] 107 [id number] [facility] 2024-02-11 00:00:00 2024-02-11 00:00:00 Telephone Karime Porter [facility] ORACLE [facility] 1.2.840.114 350.1.13.10 4.2.7.2.686 [id number] 107 [id number] [facility] 2024-02-10 13:45:00 2024-02-10 14:26:02 Initial Visit Karime Porter [facility] ORACLE MANUFACTURING CONSULTANT [facility] CHILD [facility] 1.2.840.114 350.1.13.10 4.2.7.2.686 [id number] 107 [id number] [facility] 2024-02-10 13:45:00 2024-02-10 14:26:02 [facility] [id number] 2024-02-10 00:00:00 2024-02-10 00:00:00 Orders Only Doctor Unassigned, [place] [facility] 1.2.840.114 350.1.13.10 4.2.7.2.686 [id number] [facility] 2023-03-20 11:15:00 2023-03-20 11:15:00 Outpatient R CHRISTOPHER GERMAN [facility] [id number] [facility] 2023-03-19 00:00:00 2023-03-19 00:00:00 Orders Only Doctor Unassigned, [facility] 1.2.840.114 350.1.13.10 4.2.7.2.686 [id number] [facility] 2023-03-14 10:00:00 2023-03-14 10:00:00 Outpatient R LÓPEZ [facility] [id number] [facility] 2023-01-31 11:30:00 2023-01-31 12:09:02 Outpatient R LÓPEZ [facility] [id number] [facility] 2023-01-31 11:30:00 2023-01-31 12:09:02 Office Visit López Rodgers [facility] 1.2840.114 350.1.13.10 4.2.7.2.686 [id number] [facility] 2023-01-31 00:00:00 2023-01-31 00:00:00 Orders Only Doctor Unassigned, [facility] 1.2.840.114 350.1.13.10 4.2.7.2.686 [id number] [facility] 2020-10-23 08:22:00 2020-10-23 09:18:00 Emergency Natanael Bagley [facility] 1.2.840.114 350.1.13.10 4.2.7.2.686 [id number] [facility] 2020-05-14 09:33:00 2020-05-14 11:03:00 Emergency Keturah Fortune [facility] 1.2.840.114 350.1.13.10 4.2.7.2.686 [id number] [facility] 2020-05-14 00:00:00 2020-05-14 00:00:00 Orders Only Doctor Unassigned, [facility] 1.2.840.114 350.1.13.10 4.2.7.2.686 [id number] [facility] 2020-03-22 10:50:00 2020-03-22 10:50:00 Outpatient Raju_P [facility] [id number] [facility] Results Test Description Test Time Test Comments Results Result Co mments Source [facility] (QUANTITATIVE)2025-03-22 16:09:10* Test Item Value Reference Range Interpretation Comme nts BETA HCG (test code = [id number]) 29.67 See_Comment [Automated messa ge] The system which generated this result transmitted reference range: Non- female and male patients: <5 mIU/mL. The reference range was not used to interpret this result as normal/abnormal. PHYLICIA (test code = PHYLICIA) Gestational Age ?Range (mIU/mL) 1-10 ?Weeks ?[id number] Weeks ?[id number] Weeks ?4234-44903472-55 Weeks ?9003-511116 Biotin has been reported to cause a negative bias, interpret results relative to patient's use of biotin. [facility] [id number] 15:39:00 * Test Item Value Reference Range Interpretation Comme nts ABO & RH (test code = 20) A POSITIVE IAT (test code = 1185) Negative [facility] without Pepv0802-00-27 15:31:20* Test Item Value Reference Range Interpretation Comme nts WBC (test code = 6690-2) 8.55 4.30-11.10 RBC (test code = 789-8) 5.27 3.93-5.25 H HGB (test code = 718-7) 14.1 g/dL 11.6-15.0 HCT (test code = 4544-3) 44.6 % 35.7-45.2 MCH (test code = 785-6) 26.8 pg 25.9-32.8 MCV (test code = 787-2) 84.6 fL 80.6-95.5 MCHC (test code = 786-4) 31.6 g/dL 31.6-35.1 PLT (test code = 777-3) 389 166-358 H MPV (test code = 46682-0) 10.6 fL 9.5-12.9 RDW-CV (test code = 788-0) 14 % 12.0-15.5 RDW-SD (test code = 67019-9) 42.9 fL 39.0-49.9 NRBC x10^3 (test code = 6356429360) See_Comment [Automated messa ge] The system which generated this result transmitted reference range: 10*3/?L. The reference range was not used to interpret this result as normal/abnormal. NRBC/100 WBC (test code = 0379826628) 0 0.0-10.0 IPF % (test code = 5579111870) Lab Interpretation (test code = 30254-1) Abnormal [facility] [id number] 14:43:00* Test Item Value Reference Range Interpretation Comme nts POCT PREG (test code = 1605) Positive On board controls acceptable with C Line (test code = 3574) Yes Lab Interpretation (test cod e = 72307-6) Normal [facility] [id number] 14:52:00* Test Item Value Reference Range Interpretation Comme nts POCT PREG (test code = 1605) Positive Faint On board controls acceptable with C Line (test code = 3574) Yes POCT PREG LOT # (test code = 3575) POCT PREG TEST DATE ( test code = 3576) Lab Interpretation (test cod e = 01572-4) Abnormal [facility] [id number] 14:52:00* Test Item Value Reference Range Interpretation Comme nts POCT PREG (test code = 1605) Positive Faint On board controls acceptable with C Line (test code = 3574) Yes POCT PREG LOT # (test code = 3575) POCT PREG TEST DATE ( test code = 3576) Lab Interpretation (test cod e = 91189-3) Abnormal [facility] Metabolic Panel ([id number])2024-03-12 14:52:48* Test Item Value Reference Range Interpretation Comme nts NA (test code = 9475809097) 135 mmol/L 135-145 K (test code = 1397623397) 4.2 mmol/L 3.5-5.0 CL (test code = 3593351141) 105 mmol/L 98-108 CO2 TOTAL (test code = 1999797766) 24 mmol/L 23-31 AGAP (test code = 3244668556) 6 2-16 BUN (test code = 3442784313) 11 mg/dL 7-23 GLUCOSE (test code = 3339307129) 89 mg/dL 70-110 CREATININE (test code = 2160-0) 0.56 mg/dL 0.50-1.04 TOTAL BILI (test code = 6787401938) 0.6 mg/dL 0.1-1.1 CALCIUM (test code = 4532600621) 9.4 mg/dL 8.6-10.6 T PROTEIN (test code = 7613563341) 7.2 g/dL 6.3-8.2 ALBUMIN (test code = 5508746825) 4.1 g/dL 3.5-5.0 ALK PHOS (test code = 8399527303) 62 U/L 34-122 ALTv (test code = 1742-6) 22 U/L 5-35 AST(SGOT) (test code = 9404654990) 31 U/L 13-40 eGFR (test code = 79394-5) 127.7 mL/min/1.73m2 CKD-EPI eGFR (20 21). Assuming creatinine has been stable day-to-day for at least three months, the eGFR indicates Category G1 (>= 90 mL/min/1.73 m2) [facility] Metabolic Panel ([id number])2024-03-12 14:52:48* Test Item Value Reference Range Interpretation Comme nts NA (test code = 8738284826) 135 mmol/L 135-145 K (test code = 4794126952) 4.2 mmol/L 3.5-5.0 CL (test code = 2550714500) 105 mmol/L 98-108 CO2 TOTAL (test code = 6939629390) 24 mmol/L 23-31 AGAP (test code = 6219254326) 6 2-16 BUN (test code = 2521436083) 11 mg/dL 7-23 GLUCOSE (test code = 2916044627) 89 mg/dL 70-110 CREATININE (test code = 2160-0) 0.56 mg/dL 0.50-1.04 TOTAL BILI (test code = 9709785410) 0.6 mg/dL 0.1-1.1 CALCIUM (test code = 3317094932) 9.4 mg/dL 8.6-10.6 T PROTEIN (test code = 5653178233) 7.2 g/dL 6.3-8.2 ALBUMIN (test code = 8414188896) 4.1 g/dL 3.5-5.0 ALK PHOS (test code = 6208932307) 62 U/L 34-122 ALTv (test code = 1742-6) 22 U/L 5-35 AST(SGOT) (test code = 8330519744) 31 U/L 13-40 eGFR (test code = 21094-3) 127.7 mL/min/1.73m2 CKD-EPI eGFR (20 21). Assuming creatinine has been stable day-to-day for at least three months, the eGFR indicates Category G1 (>= 90 mL/min/1.73 m2) [facility] with Mtyi5427-02-22 13:52:03* Test Item Value Reference Range Interpretation Comme nts WBC (test code = 6690-2) 11.53 4.30-11.10 H RBC (test code = 789-8) 4.41 3.93-5.25 HGB (test code = 718-7) 12.8 g/dL 11.6-15.0 HCT (test code = 4544-3) 37.4 % 35.7-45.2 MCV (test code = 787-2) 84.8 fL 80.6-95.5 MCH (test code = 785-6) 29.0 pg 25.9-32.8 MCHC (test code = 786-4) 34.2 g/dL 31.6-35.1 RDW-SD (test code = 87641-8) 39.4 fL 39.0-49.9 RDW-CV (test code = 788-0) 12.8 % 12.0-15.5 PLT (test code = 777-3) 367 166-358 H MPV (test code = 52436-3) 10.4 fL 9.5-12.9 NRBC/100 WBC (test code = 6410253337) 0.0 0.0-10.0 NRBC x10^3 (test code = 4965997934) See_Comment [Automated messa ge] The system which generated this result transmitted reference range: 10*3/?L. The reference range was not used to interpret this result as normal/abnormal. GRAN MAT (NEUT) % (test code = 770-8) 68.4 % IMM GRAN % (test code = 1869189407) 0.30 % LYMPH % (test code = 736-9) 24.1 % MONO % (test code = 5905-5) 5.4 % EOS % (test code = 713-8) 1.5 % BASO % (test code = 706-2) 0.3 % GRAN MAT x10^3(ANC) (test code = 1652911181) 7.88 10*3/uL 1.88-7.09 H IMM GRAN x10^3 (test code = 4892415301) 0.04 10*3/uL 0.00-0.06 LYMPH x10^3 (test code = 731-0) 2.78 10*3/uL 1.32-3.29 MONO x10^3 (test code = 742-7) 0.62 10*3/uL 0.33-0.92 EOS x10^3 (test code = 711-2) 0.17 10*3/uL 0.03-0.39 BASO x10^3 (test code = 704-7) 0.04 10*3/uL 0.01-0.07 Lab Interpretation (test code = 49831-2) Abnormal [facility] with Tmgb7307-10-31 13:52:03* Test Item Value Reference Range Interpretation Comme nts WBC (test code = 6690-2) 11.53 4.30-11.10 H RBC (test code = 789-8) 4.41 3.93-5.25 HGB (test code = 718-7) 12.8 g/dL 11.6-15.0 HCT (test code = 4544-3) 37.4 % 35.7-45.2 MCV (test code = 787-2) 84.8 fL 80.6-95.5 MCH (test code = 785-6) 29.0 pg 25.9-32.8 MCHC (test code = 786-4) 34.2 g/dL 31.6-35.1 RDW-SD (test code = 97218-5) 39.4 fL 39.0-49.9 RDW-CV (test code = 788-0) 12.8 % 12.0-15.5 PLT (test code = 777-3) 367 166-358 H MPV (test code = 94062-5) 10.4 fL 9.5-12.9 NRBC/100 WBC (test code = 9531434002) 0.0 0.0-10.0 NRBC x10^3 (test code = 6684044638) See_Comment [Automated messa ge] The system which generated this result transmitted reference range: 10*3/?L. The reference range was not used to interpret this result as normal/abnormal. GRAN MAT (NEUT) % (test code = 770-8) 68.4 % IMM GRAN % (test code = 0868942811) 0.30 % LYMPH % (test code = 736-9) 24.1 % MONO % (test code = 5905-5) 5.4 % EOS % (test code = 713-8) 1.5 % BASO % (test code = 706-2) 0.3 % GRAN MAT x10^3(ANC) (test code = 3058408352) 7.88 10*3/uL 1.88-7.09 H IMM GRAN x10^3 (test code = 9977850889) 0.04 10*3/uL 0.00-0.06 LYMPH x10^3 (test code = 731-0) 2.78 10*3/uL 1.32-3.29 MONO x10^3 (test code = 742-7) 0.62 10*3/uL 0.33-0.92 EOS x10^3 (test code = 711-2) 0.17 10*3/uL 0.03-0.39 BASO x10^3 (test code = 704-7) 0.04 10*3/uL 0.01-0.07 Lab Interpretation (test code = 87259-8) [facility] Bhkabqt2735-08-34 13:43:00* Test Item Value Reference Range Interpretation Comme nts ABO & RH (test code = 20) A POSITIVE IAT (test code = 1185) Negative [facility] Fhmenco2963-08-68 13:43:00* Test Item Value Reference Range Interpretation Comme nts ABO & RH (test code = 20) A POSITIVE IAT (test code = 1185) Negative [facility] Xlnp9972-56-93 14:35:00* Test Item Value Reference Range Interpretation Comme nts POCT PREG (test code = 1605) Positive On board controls acceptable with C Line (test code = 3574) Yes POCT PREG LOT # (test code = 3575) POCT PREG TEST DATE ( test code = 3576) Lab Interpretation (test cod e = 15296-5) Abnormal [facility] Tltd5040-81-49 14:35:00* Test Item Value Reference Range Interpretation Comme nts POCT PREG (test code = 1605) Positive On board controls acceptable with C Line (test code = 3574) Yes POCT PREG LOT # (test code = 3575) POCT PREG TEST DATE ( test code = 3576) Lab Interpretation (test cod e = 78694-0) [facility] (41789)2024-02-24 20:56:15* Test Item Value Reference Range Interpretation Comme nts NA (test code = 9759728255) 135 mmol/L 135-145 K (test code = 4159189415) 4.0 mmol/L 3.5-5.0 CL (test code = 3726745655) 104 mmol/L 98-108 CO2 TOTAL (test code = 0345585613) 23 mmol/L 23-31 AGAP (test code = 2336388723) 8 2-16 BUN (test code = 7382044170) 12 mg/dL 7-23 GLUCOSE (test code = 6306062834) 81 mg/dL 70-110 CREATININE (test code = 2160-0) 0.67 mg/dL 0.50-1.04 TOTAL BILI (test code = 5954178909) 0.4 mg/dL 0.1-1.1 CALCIUM (test code = 5917309919) 9.6 mg/dL 8.6-10.6 T PROTEIN (test code = 3817663753) 7.4 g/dL 6.3-8.2 ALBUMIN (test code = 1228076555) 4.3 g/dL 3.5-5.0 ALK PHOS (test code = 0295463786) 78 U/L 34-122 ALTv (test code = 1742-6) 48 U/L 5-35 H AST(SGOT) (test code = 8405299332) 43 U/L 13-40 H eGFR (test code = 07595-2) 122.3 mL/min/1.73m2 CKD-EPI eGFR (2020). Assuming creatinine has been stable day-to-day for at least three months, the eGFR indicates Category G1 (>= 90 mL/min/1.73 m2) Lab Interpretation (test code = 36621-5) Abnormal [facility]. Metabolic Panel ([id number])2024-02-24 20:56:15* Test Item Value Reference Range Interpretation Comme nts NA (test code = 2817592254) 135 mmol/L 135-145 K (test code = 8452746997) 4.0 mmol/L 3.5-5.0 CL (test code = 6211178208) 104 mmol/L 98-108 CO2 TOTAL (test code = 6331931481) 23 mmol/L 23-31 AGAP (test code = 5196098740) 8 2-16 BUN (test code = 3344478197) 12 mg/dL 7-23 GLUCOSE (test code = 9117170764) 81 mg/dL 70-110 CREATININE (test code = 2160-0) 0.67 mg/dL 0.50-1.04 TOTAL BILI (test code = 1238420113) 0.4 mg/dL 0.1-1.1 CALCIUM (test code = 0487930941) 9.6 mg/dL 8.6-10.6 T PROTEIN (test code = 2828458483) 7.4 g/dL 6.3-8.2 ALBUMIN (test code = 6440700974) 4.3 g/dL 3.5-5.0 ALK PHOS (test code = 1995420878) 78 U/L 34-122 ALTv (test code = 1742-6) 48 U/L 5-35 H AST(SGOT) (test code = 7604227747) 43 U/L 13-40 H eGFR (test code = 06722-4) 122.3 mL/min/1.73m2 CKD-EPI eGFR (2020). Assuming creatinine has been stable day-to-day for at least three months, the eGFR indicates Category G1 (>= 90 mL/min/1.73 m2) Lab Interpretation (test code = 96782-2) Abnormal [facility] with Emll0072-71-08 20:13:30* Test Item Value Reference Range Interpretation Comme nts WBC (test code = 6690-2) 14.67 4.30-11.10 H RBC (test code = 789-8) 4.52 3.93-5.25 HGB (test code = 718-7) 13.0 g/dL 11.6-15.0 HCT (test code = 4544-3) 38.8 % 35.7-45.2 MCV (test code = 787-2) 85.8 fL 80.6-95.5 MCH (test code = 785-6) 28.8 pg 25.9-32.8 MCHC (test code = 786-4) 33.5 g/dL 31.6-35.1 RDW-SD (test code = 49950-4) 39.3 fL 39.0-49.9 RDW-CV (test code = 788-0) 12.5 % 12.0-15.5 PLT (test code = 777-3) 398 166-358 H MPV (test code = 22310-3) 10.5 fL 9.5-12.9 NRBC/100 WBC (test code = 3528710448) 0.0 0.0-10.0 NRBC x10^3 (test code = 8506613432) See_Comment [Automated messa ge] The system which generated this result transmitted reference range: 10*3/?L. The reference range was not used to interpret this result as normal/abnormal. GRAN MAT (NEUT) % (test code = 770-8) 67.9 % IMM GRAN % (test code = 4634596220) 0.50 % LYMPH % (test code = 736-9) 24.9 % MONO % (test code = 5905-5) 4.9 % EOS % (test code = 713-8) 1.4 % BASO % (test code = 706-2) 0.4 % GRAN MAT x10^3(ANC) (test code = 2038115613) 9.96 10*3/uL 1.88-7.09 H IMM GRAN x10^3 (test code = 8234774582) 0.07 10*3/uL 0.00-0.06 H LYMPH x10^3 (test code = 731-0) 3.66 10*3/uL 1.32-3.29 H MONO x10^3 (test code = 742-7) 0.72 10*3/uL 0.33-0.92 EOS x10^3 (test code = 711-2) 0.20 10*3/uL 0.03-0.39 BASO x10^3 (test code = 704-7) 0.06 10*3/uL 0.01-0.07 Lab Interpretation (test code = 39129-7) Abnormal [facility] with Kauk9209-43-63 20:13:30* Test Item Value Reference Range Interpretation Comme nts WBC (test code = 6690-2) 14.67 4.30-11.10 H RBC (test code = 789-8) 4.52 3.93-5.25 HGB (test code = 718-7) 13.0 g/dL 11.6-15.0 HCT (test code = 4544-3) 38.8 % 35.7-45.2 MCV (test code = 787-2) 85.8 fL 80.6-95.5 MCH (test code = 785-6) 28.8 pg 25.9-32.8 MCHC (test code = 786-4) 33.5 g/dL 31.6-35.1 RDW-SD (test code = 93130-7) 39.3 fL 39.0-49.9 RDW-CV (test code = 788-0) 12.5 % 12.0-15.5 PLT (test code = 777-3) 398 166-358 H MPV (test code = 94767-0) 10.5 fL 9.5-12.9 NRBC/100 WBC (test code = 4123492923) 0.0 0.0-10.0 NRBC x10^3 (test code = 6911269681) See_Comment [Automated messa ge] The system which generated this result transmitted reference range: 10*3/?L. The reference range was not used to interpret this result as normal/abnormal. GRAN MAT (NEUT) % (test code = 770-8) 67.9 % IMM GRAN % (test code = 3684503411) 0.50 % LYMPH % (test code = 736-9) 24.9 % MONO % (test code = 5905-5) 4.9 % EOS % (test code = 713-8) 1.4 % BASO % (test code = 706-2) 0.4 % GRAN MAT x10^3(ANC) (test code = 9466684817) 9.96 10*3/uL 1.88-7.09 H IMM GRAN x10^3 (test code = 1936042780) 0.07 10*3/uL 0.00-0.06 H LYMPH x10^3 (test code = 731-0) 3.66 10*3/uL 1.32-3.29 H MONO x10^3 (test code = 742-7) 0.72 10*3/uL 0.33-0.92 EOS x10^3 (test code = 711-2) 0.20 10*3/uL 0.03-0.39 BASO x10^3 (test code = 704-7) 0.06 10*3/uL 0.01-0.07 Lab Interpretation (test code = 24806-9) [facility] Jnljqwp8686-18-68 20:05:00* Test Item Value Reference Range Interpretation Comme nts ABO & RH (test code = 20) A POSITIVE IAT (test code = 1185) Negative [facility] Twyjgmu1795-30-92 20:05:00* Test Item Value Reference Range Interpretation Comme nts ABO & RH (test code = 20) A POSITIVE IAT (test code = 1185) Negative [facility] [id number] 18:29:00* Test Item Value Reference Range Interpretation Comme nts POCT PREG (test code = 1605) Positive On board controls acceptable with C Line (test code = 3574) Yes POCT PREG LOT # (test code = 3575) POCT PREG TEST DATE ( test code = 3576) [facility] Urinalysis w/o Specific Ueuxphe3093-73-78 18:29:00* Test Item Value Reference Range Interpretation [...] = 3257) Trace Negative - Negati ve [facility] [id number] 17:56:00* Test Item Value Reference Range Interpretation Comme nts POCT PREG (test code = 1605) Negative On board controls acceptable with C Line (test code = 3574) Yes POCT PREG LOT # (test code = 3575) POCT PREG TEST DATE ( test code = 3576) [facility] [id number] 17:56:00* Test Item Value Reference Range Interpretation Comme nts POCT PREG (test code = 1605) Negative On board controls acceptable with C Line (test code = 3574) Yes POCT PREG LOT # (test code = 3575) POCT PREG TEST DATE ( test code = 3576) [facility] acute hospital W/AUTO [id number] 00:00:00* Test Item Value Reference Range Interpretation Comme nts WBC (test code = 1001) 10.1 K/UL RBC (test code = 1002) 5.09 M/UL HEMOGLOBIN (test code = 1003) 13.7 G/DL HEMATOCRIT (test code = 1004) 42.2 % MCV (test code = 1005) 82.9 fL MCH (test code = 1006) 26.9 PG MCHC (test code = 1007) 32.5 G/DL RDW (test code = 1038) 13.0 % NEUTROPHILS (test code = 1008) 65.4 % LYMPHOCYTES (test code = 1010) 26.6 % MONOCYTES (test code = 1011) 6.0 % EOSINOPHILS (test code = 1012) 1.2 % BASOPHILS (test code = 1013) 0.5 % IMMATURE GRANULOCYTES (test code = 1036) 0.3 % NUCLEATED RBCS (test code = 1065) 0.0 /100WBC'S PLATELET COUNT (test code = 1015) 470 K/UL ABSOLUTE NEUTROPHILS (test c ode = 1066) 6.59 K/UL ABSOLUTE LYMPHOCYTES (test c ode = 1067) 2.68 K/UL ABSOLUTE MONOCYTES (test cod e = 1068) 0.60 K/UL ABSOLUTE EOSINOPHILS (test c ode = 1040) 0.12 K/UL ABSOLUTE BASOPHILS (test cod e = 1069) 0.05 K/UL ABS IMMATURE GRANULOCYTES (t est code = 1020) 0.03 K/UL ABS NUCLEATED RBCS (test cod e = 69944) 0.00 K/UL Tan SuarezHEMOGLOBIN [id number] 00:00:00* Test Item Value Reference Range Interpretation Comme nts HEMOGLOBIN A1c (test code = 90838) 5.4 % Tan SuarezLIPID [id number] 00:00:00* Test Item Value Reference Range Interpretation Comme nts CHOLESTEROL (test code = 2210) 161 MG/DL TRIGLYCERIDES (test code = 2232) 56 MG/DL HDL CHOLESTEROL (test code = 2220) 55 MG/DL CALC LDL CHOL (test code = 2237) 92 MG/DL RISK RATIO LDL/HDL (test cod e = 2238) 1.67 RATIO Tan SuarezCOMPREHENSIVE METABOLIC [id number] 00:00:00* Test Item Value Reference Range Interpretation Comme nts GLUCOSE (test code = 2217) 101 MG/DL BUN (test code = 2208) 14 MG/DL CREATININE (test code = 2214) 0.75 MG/DL eGFR AMER. (test cod e = 32718) 128 ML/MIN/1.73 eGFR NON- AMER. (test code = 34752) 111 ML/MIN/1.73 CALC BUN/CREAT (test code = 2235) 19 RATIO SODIUM (test code = 2231) 143 MEQ/L POTASSIUM (test code = 2228) 4.8 MEQ/L CHLORIDE (test code = 2215) 106 MEQ/L CARBON DIOXIDE (test code = 2206) 25 MEQ/L CALCIUM (test code = 2209) 10.3 MG/DL PROTEIN, TOTAL (test code = 2229) 7.8 G/DL ALBUMIN (test code = 2201) 4.7 G/DL CALC GLOBULIN (test code = 2240) 3.1 G/DL CALC A/G RATIO (test code = 2234) 1.5 RATIO BILIRUBIN, TOTAL (test code = 2207) 0.4 MG/DL ALKALINE PHOSPHATASE (test code = 2204) 70 U/L AST (test code = 2218) 19 U/L ALT (test code = 2219) 24 U/L Tan SuarezQqhzzxBJG7389-35-97 00:00:00* Test Item Value Reference Range Interpretation Comme nts TSH, THIRD GENERATION (test code = 2821) 2.710 UIU/ML Tan SuarezCBC W/AUTO [id number] 00:00:00* Test Item Value Reference Range Interpretation Comme nts WBC (test code = 1001) 10.1 K/UL RBC (test code = 1002) 5.09 M/UL HEMOGLOBIN (test code = 1003) 13.7 G/DL HEMATOCRIT (test code = 1004) 42.2 % MCV (test code = 1005) 82.9 fL MCH (test code = 1006) 26.9 PG MCHC (test code = 1007) 32.5 G/DL RDW (test code = 1038) 13.0 % NEUTROPHILS (test code = 1008) 65.4 % LYMPHOCYTES (test code = 1010) 26.6 % MONOCYTES (test code = 1011) 6.0 % EOSINOPHILS (test code = 1012) 1.2 % BASOPHILS (test code = 1013) 0.5 % IMMATURE GRANULOCYTES (test code = 1036) 0.3 % NUCLEATED RBCS (test code = 1065) 0.0 /100WBC'S PLATELET COUNT (test code = 1015) 470 K/UL ABSOLUTE NEUTROPHILS (test c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
[2025-03-28 06:34] LABS: Absolute Basophils 0.1 K/uL (0-0.5); Absolute Eosinophils 0.2 K/uL (0-0.5); Absolute Lymphocytes (CBC) 2.8 K/uL (0.7-4.9); Absolute Monocytes 0.9 K/uL (0.1-1.3); Basophils % 1.1 % (0-1.3); Eosinophils % 2.4 % (0-4.4); Hematocrit 40.2 % (36.0-45.0); Hemoglobin 13.4 g/dL (12.0-15.0); Lymphocytes % 31.4 % (15.3-44.8); MCH 27.3 pg (27.0-35.0); MCHC 33.5 g/dL (32.0-36.0); MCV 81.6 fL (80-100); MPV 8.3 fL (7.6-11.3); Monocytes % 9.5 % (3.3-12.3); Neutrophils % 55.6 % (41.7-73.7); Nucleated Red Blood Cells % 0.1 % (0-0); Platelets 396 thou/uL (152-406); RBC Red Blood Cell Count 4.93 M/uL (3.86-4.86); Red Cell Distribution Width 14.5 % (12.1-15.2)
[2025-03-28 06:46] LABS: Specific Gravity > 1.030 (1.005-1.030); Sqamous Epithelial <5 /HPF (None Seen); Urine Bacteria None Seen /HPF (<20); Urine Bilirubin NEGATIVE (Negative); Urine Blood 3+ (Negative); Urine Clarity Extremely Turbid (Clear); Urine Color Yellow (Yellow); Urine Glucose NEGATIVE (Negative); Urine Ketones NEGATIVE (Negative); Urine Micro Reflex YN NO BILL MICROSCOPIC; Urine Mucus 3+ /HPF (None Seen); Urine Nitrite NEGATIVE (Negative); Urine Protein TRACE (Negative); Urine Urobilinogen 1+ (Normal); Urine WBC <5 /HPF (<5)
--- NOTE | 2025-03-28 07:30 | RAD REPORT ---
EXAMINATION: US Transvaginal OB CLINICAL INDICATION: Female 30 years old.[facility] MAIN bleeding Bed Name: 13 TECHNIQUE: Real-time ultrasonography of the pelvis was performed transvaginally. Color evaluation of the ovaries was performed. COMPARISON: No prior exam. FINDINGS: UTERUS AND CERVIX: The uterus is retroverted, measures 7 cm in length. No evidence of an intrauterine . No masses seen The endometrium is normal for age, 0.9 cm in thickness. RIGHT OVARY: The right ovary measures 4.0 x 2.5 x 2.2 cm. Normal color evaluation of the right ovary however with a ring of fire isoechoic 1.4 cm rounded focus within the periphery of the right ovary measuring 1.4 cm, without a pole. No dominant cystic lesions. LEFT OVARY: Normal The left ovary measures 3.5 x 1.8 x 1.6 cm. Moderate amount of fluid and debris in the left adnexal region extending towards the fundus. Normal color evaluation of the left ovary. Spectral Doppler evaluation of both ovaries was not performed. FREE FLUID: No free fluid. IMPRESSION: Small isoechoic right ovarian lesion with angle fire vascularity measuring 1.4 cm, could represent an early corpus luteum, although no discrete intra uterine or extrauterine is identified. This could relate to very early . Ectopic is not entirely excluded. Close clinical follow-up and continued beta hCG trending is recommended. Moderate fluid with debris in the left adnexal region, could relate to recent follicle rupture, possi melina with hemorrhagic content. THIS REPORT CONTAINS FINDINGS THAT MAY BE CRITICAL TO PATIENT CARE. The findings were verbally commun icated via telephone to Israel Penny on 03/28/2025 7:25 AM.
[2025-03-28 07:44] LABS: Anion Gap 9.4 mEq/L (5.0-15.0); Potassium 3.4 mEq/L (3.5-5.1)
--- NOTE | 2025-03-28 08:00 | ER ---
Nurse's Notes [facility] Name: Marta Meza Age: 30 yrs Sex: Female : 1995 Arrival Date: 03/28/2025 Time: 06:04 Bed 13 Private MD: Diagnosis: Less than 8 weeks gestation of ;Threatened Presentation: 03/28 06:14 Chief complaint: Patient states: VAGINAL BLEEDING SINCE FRIDAY...BRIGHT RED BLOOD, br2 DENIES CLOTS. HX OF ECTOPIC PREG IN THE PAST, PAIN TO LLQ INTERMITTENT. Coronavirus screen: Client denies travel out of the [place] in the last 14 days. Ebola Screen: Patient denies exposure to infectious person. Initial Sepsis Screen: Does the patient meet any 2 criteria? No. Patient's initial sepsis screen is negative. Does the patient have a suspected source of infection? No. Patient's initial sepsis screen is negative. Risk Assessment: Do you want to hurt yourself or someone else? Patient reports no desire to harm self or others. Onset of symptoms was March 25, 2025. 06:14 Method Of Arrival: Ambulatory br2 06:14 Acuity: BEE 3 br2 Triage Assessment: 06:17 General: Appears in no apparent distress. comfortable, Behavior is calm, cooperative. br2 Pain: Complains of pain in left lower quadrant Pain does not radiate. Pain currently is 4 out of 10 on a pain scale. 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 - Infectious Disease History:: Denies. - Social history:: Smoking status: Patient denies any tobacco usage or history of. Patient/guardian denies using alcohol, street drugs. - Family history:: not pertinent. Screenin:[facility] ED Fall Risk Assessment (Adult) History of falling in the last 3 months, al5 including since admission No falls in past 3 months (0 pts) Confusion or Disorientation No (0 pts) Intoxicated or Sedated No (0 pts) Impaired Gait No (0 pts) Mobility Assist Device Used No (0 pt) Altered Elimination No (0 pt) Score/Fall Risk Level 0 - 2 = Low Risk Oriented to surroundings, Maintained a safe environment, Hourly rounding (assess needs \T\ fall precautionary measures) done. Abuse screen: Denies threats or abuse. Denies injuries from another. Nutritional screening: No deficits noted. Tuberculosis screening: No symptoms or risk factors identified. Assessment: 06:29 General: Appears in no apparent distress. comfortable, Behavior is calm, cooperative. al5 Pain: Complains of pain in left lower quadrant. Neuro: Level of Consciousness is awake, alert, obeys commands, Oriented to person, place, time, situation. Cardiovascular: Capillary refill < 3 seconds Patient's skin is warm and dry. Respiratory: Airway is patent Respiratory effort is even, unlabored, Respiratory pattern is regular, symmetrical. GI: Reports lower abdominal pain, nausea. : Urine is cloudy, yellowish tfifany color Reports vaginal bleeding that is bright red, light flow. EENT: No signs and/or symptoms were reported regarding the EENT system. Derm: Skin is intact, is healthy with good turgor, Skin is pink, warm \T\ dry. normal. Musculoskeletal: No signs and/or symptoms reported regarding the musculoskeletal system. 07:30 Reassessment: Patient appears in no apparent distress at this time. Patient and/or db family updated on plan of care and expected duration. Pain level reassessed. Patient is alert, oriented x 3, equal unlabored respirations, skin warm/dry/pink. General: Appears in no apparent distress. comfortable, Behavior is calm, cooperative. Neuro: Level of Consciousness is awake, alert, obeys commands, Oriented to person, place, time, situation. Respiratory: Airway is patent Respiratory effort is even, unlabored, Respiratory pattern is regular, symmetrical. 08:07 Reassessment: Patient appears in no apparent distress at this time. Patient states db feeling better. Patient states symptoms have improved. Vital Signs: 06:14 BP 123 / 76; Pulse 74; Resp 18; Temp 97.6; Pulse Ox 100% ; Weight 90.72 kg; Height 5 br2 ft. 1 in. ; Pain 4/10; 07:46 BP 115 / 77; Pulse 73; Resp 16; Pulse Ox 100% on R/A; db 06:14 Body Mass Index 37.79 (90.72 kg, 154.94 cm) br2 06:14 Pain Scale: Adult br2 ED Course: 06:06 Patient arrived in ED. [id number] 06:09 Michael Hernandez MD is Attending Physician. rt 06:17 Triage completed. br2 06:27 Dolly Graf, RN is Primary Nurse. al5 06:29 Patient has correct armband on for positive identification. Bed in low position. Call al5 light in reach. Side rails up X 1. Provided Education on: plan of care. 06:29 No provider procedures requiring assistance completed. Inserted saline lock: 20 gauge al5 in right antecubital area, using aseptic technique. Blood collected. Flushed with 10 mL NS. 06:31 Arm band placed on right wrist. Patient placed in the treatment room, in view of staff al5 members, on pulse oximetry. 07:06 Attending Physician role handed off by Michael Hernandez MD rn 07:06 Israel Penny MD is Attending Physician. rn 07:08 US Transvaginal Ob In Process Unspecified. EDMS 07:25 Basic Metabolic Panel Sent. nh2 07:25 Quantitative Hcg Sent. nh2 08:07 Pulse ox on. NIBP on. Warm blanket given. Pillow given. db 08:07 IV discontinued, intact, bleeding controlled, No redness/swelling at site. db Administered Medications: No medications were administered Medication: 06:29 VIS not applicable for this client. al5 Outcome: 07:59 Discharge ordered by . rn 08:07 Discharged to home ambulatory, db 08:07 Condition: stable 08:07 Discharge instructions given to patient, Instructed on discharge instructions, follow up and referral plans. 08:08 Patient left the ED. db Signatures: Dispatcher [employer] EDMS Israel Penny MD MD rn Jeffries, Jennifer jj6 Sandee Herrera RN RN db Michael Hernandez MD MD rt Dolly Graf RN RN al5 Amy Spivey RN RN br2 Brown Landers Jr nh2
--- NOTE | 2025-03-28 08:00 | EDPHYS ---
Physician Documentation [facility] Name: Marta Meza Age: 30 yrs Sex: Female : 1995 Arrival Date: 03/28/2025 Time: 06:04 Bed 13 Private MD: ED Physician Israel Penny HPI: 03/28 06:22 This 30 yrs old Female presents to ER via Ambulatory with complaints of Est 5 weeks rt gestation, Vaginal Bleeding. 06:22 Patient is a G4, P2 currently at 5 weeks gestation. She does report a history of a rt previous ectopic . States that she had a small amount of vaginal spotting on Friday which resolved, states that she had more vaginal bleeding this morning prompting her to come to the ED for further evaluation. Reports left lower quadrant discomfort but denies other acute complaints at this time, symptoms are moderate severity, no other aggravating alleviating factors.. 06:55 Patient was blood type is a positive. 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 - Infectious Disease History:: Denies. - Social history:: Smoking status: Patient denies any tobacco usage or history of. Patient/guardian denies using alcohol, street drugs. - Family history:: not pertinent. ROS: 06:22 Positive for vaginal bleeding, Negative for urinary symptoms, rt 06:22 Constitutional: Negative for fever, chills, and weight loss, Cardiovascular: Negative for chest pain, palpitations, and edema, Respiratory: Negative for shortness of breath, cough, wheezing, and pleuritic chest pain, MS/Extremity: Negative for injury and deformity, Skin: Negative for injury, rash, and discoloration, 06:22 Abdomen/GI: Positive for abdominal pain, Negative for nausea, Exam: 06:22 Constitutional: This is a well developed, well nourished patient who is awake, alert, rt and in no acute distress. Head/Face: Normocephalic, atraumatic. Chest/axilla: Normal chest wall appearance and motion. Nontender with no deformity. No lesions are appreciated. Cardiovascular: Regular rate and rhythm with a normal S1 and S2. No gallops, murmurs, or rubs. Normal PMI, no JVD. No pulse deficits. Respiratory: Lungs have equal breath sounds bilaterally, clear to auscultation and percussion. No rales, rhonchi or wheezes noted. No increased work of breathing, no retractions or nasal flaring. Abdomen/GI: Soft, non-tender, with normal bowel sounds. No distension or tympany. No guarding or rebound. No evidence of tenderness throughout. Skin: Warm, dry with normal turgor. Normal color with no rashes, no lesions, and no evidence of cellulitis. MS/ Extremity: Pulses equal, no cyanosis. Neurovascular intact. Full, normal range of motion. Neuro: Awake and alert, GCS 15, oriented to person, place, time, and situation. Cranial nerves II-XII grossly intact. Motor strength 5/5 in all extremities. Sensory grossly intact. Cerebellar exam normal. Normal gait. Vital Signs: 06:14 BP 123 / 76; Pulse 74; Resp 18; Temp 97.6; Pulse Ox 100% ; Weight 90.72 kg; Height 5 br2 ft. 1 in. ; Pain 4/10; 07:46 BP 115 / 77; Pulse 73; Resp 16; Pulse Ox 100% on R/A; db 06:14 Body Mass Index 37.79 (90.72 kg, 154.94 cm) br2 06:14 Pain Scale: Adult br2 MDM: 06:15 Medical Screening Exam initiated rt 07:20 ED course: Reviewed previous labs to confirm that patient has a positive as she says. rn Canceled the ABO Rh. 07:55 Differential diagnosis: ovarian cyst, Ectopic . rn 07:57 Data reviewed: vital signs, nurses notes, lab test result(s), radiologic studies, rn ultrasound, and as a result, I will discharge patient. Counseling: I had a detailed discussion with the patient and/or guardian regarding the historical points, exam findings, and any diagnostic results supporting the discharge/admit diagnosis, radiology results, the need for outpatient follow up, to return to the emergency department if symptoms worsen or persist or if there are any questions or concerns that arise at home. Special discussion: I discussed with the patient/guardian in detail that at this point there is no indication for admission to the hospital. It is understood, however, that if the symptoms persist or worsen the patient needs to return immediately for re-evaluation. Based on the history and exam findings, there is no indication for further emergent testing or inpatient evaluation. I discussed with the patient/guardian the need to see the OB Gyne specialist for further evaluation of the symptoms. ED course: Ultrasound is nonspecific at this time, hCG 300, has more than doubled over the weekend. Patient reports pain essentially is gone. Gave her 2 options, transfer to [facility] to be evaluated by her OB and completely rule out ectopic versus go home as she has an appointment in 4 days with her OB. Patient chooses to go home, understands risks of going home without transfer or further evaluation at this time. She states she is going to try and call make a sooner appointment. Return precautions given and understood. Radiology comments on right paraovarian lesion, no gestational sac seen. Patient reports pain is on the left side and does not have any right sided pain.. 03/28 06:21 Order name: Basic Metabolic Panel; Complete Time: 07:45 rt 03/28 06:21 Order name: CBC with Diff; Complete Time: 07:06 rt 03/28 06:21 Order name: Quantitative Hcg; Complete Time: 07:45 rt 03/28 06:21 Order name: UA W/ Microscopic; Complete Time: 07:06 rt 03/28 06:21 Order name: US Transvaginal Ob; Complete Time: 07:33 rt 03/28 06:21 Order name: IV Saline Lock; Complete Time: 06:27 rt 03/28 06:21 Order name: Labs collected and sent; Complete Time: 06:27 rt 03/28 06:21 Order name: NPO; Complete Time: 06:27 rt 03/28 06:39 Order name: Misc. Order: recollect of labs; Complete Time: 07:25 sp Administered Medications: No medications were administered Disposition Summary: 03/28/25 07:59 Discharge Ordered Notes: Location: Home rn Problem: new rn Symptoms: have improved rn Condition: Stable rn Diagnosis - Less than 8 weeks gestation of rn - Threatened rn Followup: rn - With: Private Physician - When: As needed - Reason: Recheck today's complaints, Re-evaluation by your physician Discharge Instructions: - Discharge Summary Sheet rn - Threatened Miscarriage rn - Vaginal Bleeding During , First Trimester rn Forms: - Medication Reconciliation Form rn - Antibiotic furniture reproducer - Prescription Opioid Use rn - Patient Portal Instructions rn - Leadership Thank You Letter rn Signatures: Dispatcher [employer] EDMS Yolanda Mathew Roman, MD MD rn [place], Ryan, MD MD rt Amy Spivey, SEAN RN br2 Corrections: (The following items were deleted from the chart) 06:22 06:22 BASIC METABOLIC PANEL+C.LAB.BRZ ordered. EDMS EDMS 06: 06:22 CBC+H.LAB.BRZ ordered. EDMS EDMS 06: 06:22 QUANTITATIVE HCG+C.LAB.BRZ ordered. EDMS EDMS 06:22 06:22 UA W/ Microscopic+U.LAB.BRZ ordered. EDMS EDMS 07:24 06:22 ABO/RH TYPING+BB.LAB.BRZ ordered. EDMS EDMS
[2025-03-28 08:17] VITALS: TEMP 97.6; O2SAT 100
[2025-03-28 08:19] VITALS: BP 115/77
== END 2025-03-28 08:08 | disposition home or self-care (01) ==
LOC: ER 06:04
DX: O20.0 Threatened abortion (principal); Z3A.01 Less than 8 weeks gestation of pregnancy
CPT/HCPCS: 36415; 76817; 80048; 81001; 84702; 85025; 99284